=== PATIENT | female | born 1955 | race Caucasian/White ===

== ENCOUNTER 2025-02-21 13:32 | Outpatient (AMB) | payer MEDICARE, SELFPAY ==
[2025-02-21 13:41] VITALS: BMI 23.8
--- NOTE | 2025-02-21 13:41 | A.PHYSOV ---
Vital Signs 02/21/25 13:41 Height 5 ft 2 in Weight 130 lb BMI 23.8 Intake Visit Reasons: Wants injection but cancelled follow up Intake Note: Patient is a 70 year old female here for lower back pain. 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 The patient's last injection was in September and provided approximately 50% for four months . The patient has previously considered ablation but cited difficulty with scheduling appointments. The patient is currently experiencing pain and has an upcoming two-week trip to [place], for which pain control is desired. The pain returned suddenly after a prolonged period of relief. The patient has a history of an allergic reaction with generalized hives to a flu shot, for which the patient was treated with prednisone and tolerated it well. The patient denies being diabetic. Patient has failed conservative treatment by completing physical therapy. She has a pain level today of 6/10. Pain Description - Location: Low back - Quality: Described as arthritis pain, not nerve pain. - Chronicity: Chronic, with a recent flare-up after a period of relief. - Alleviating factors: Previous facet injections provided relief for four months. - Associated symptoms: Difficulty sleeping is a significant issue due to pain. Procedure: Bilateral L4-5, L5-S1 facet injection 10/22/2023 100% reduction of her pain Bilateral L4-5, L5-S1 facet injection 03/04/2024 50% reduction of her pain for four months [facility] Social History Alcohol intake: current Alcohol intake frequency: does not drink Patient Tobacco Use Status: Never used Tobacco Use of substances other than those prescribed or required for medical reasons: No Review of Systems Narrative Review of Systems - Musculoskeletal: Reports back pain from arthritis. - Neurological: Denies nerve pain. - Integumentary/Allergy: Reports a history of generalized hives following a flu shot. - Endocrine: Denies diabetes. - Psychiatric: Reports difficulty sleeping, which is a significant issue, and stress related to an upcoming trip. Physical Exam Exam Exam: Physical Exam -Lumbar Spine: Examination of her lumbar spine, there is no visible swelling or deformity. She is tender to lower lumbar facets. She is otherwise nontender. Full range of motion of the lumbar spine. She does have an increase in pain with facet loading. Special Tests: Lhermittes sign was negative Heel Toe walk is normal Left straight leg raise: Negative Right straight leg raise: Negative Special tests Barbara test is negative Ganslen's test is negative SI Joint compression test negative Ward test negative Piriformis stretch is negative Lower Extremities: Full range of motion bilateral lower extremities. No calf pain or edema. Neuro: Sensation: Intact to lower extremities bilaterally Strength L2 (Psoas): 5/5 on the left and 5/5 on the right. L3 (Quads): 5/5 on the left and 5/5 on the right. L4 (Ant tibialis): 5/5 on the left and 5/5 on the right. L5 (EHL) 5/5 on the left and 5/5 on the right. S1 (Gastroc): 5/5 on the left and 5/5 on the right. DTR L4: (Patellar) Left 2 Right 2 S1: (Achilles) Left 2 Right 2 Babinski Downgoing No pathologic clonus. No involuntary movement. Vital Signs: BMI result Body Mass Index 23.8 Assessment & Plan Assessment & Plan (1) Vertebrogenic low back pain: Code(s): M54.51 - Vertebrogenic low back pain Category: Medical (2) Lumbar spondylosis: Code(s): M47.816 - Spondylosis without myelopathy or radiculopathy, lumbar region Category: Medical Plan Pain Management - Analgesia: The last facet injection in September provided about four months of relief. - The patient is currently taking diclofenac and gabapentin for a pain flare-up. - A prednisone taper is planned for an upcoming trip. - Activities of Daily Living: The pain is causing difficulty with sleeping. - Affect: The patient reports stress related to managing pain during an upcoming trip. - Adverse Effects: The patient tolerates prednisone well, having taken it previously for hives. Plan Patient was informed and verbally consented to the use of an ambient scribe for clinic note documentation during this visit. 1. Chronic Low Back Pain The patient's chronic low back pain is secondary to arthritis, which previously responded well to facet injections. Given the current flare-up and upcoming travel, a short-term oral steroid course was discussed. A 21-day prednisone taper will be prescribed, starting at 60 mg, to manage pain during the trip. The patient was instructed to stop taking diclofenac while on prednisone. For long-term management, a repeat bilateral L4-5 and L5-S1 facet injection will be scheduled pending insurance approval. Today we discussed the risks, complications and benefits of injection and she is eager to proceed. 2. Insomnia Related To Medical Condition The patient reports significant issues with sleeping, which appear to be related to chronic back pain. Gabapentin 100 mg was discussed as an option to aid sleep. The patient was advised that two to three tablets can be taken at night as needed, which may also help with pain. This can be taken before and during the course of prednisone. Medications: New prednisone 3 pills po for 7 days, 2 pills po for 7 days, 1 pill po for 7 days 20 mg PO DAILY 21 tabs 0RF 21 days M47.816 - Spondylosis without myelopathy or radiculopathy, lumbar region, M54.51 - Vertebrogenic low back pain Coding Level of Care Code Tele Est Pt Level 4 (47295) Diagnoses Vertebrogenic low back pain M54.51 Lumbar spondylosis M47.816
--- OUTSIDE RECORDS SUMMARY | 2025-02-21 16:39 | XMS_ITS | Continuity of Care Document ---
Author Organization [place] - [facility], Allergy Address [address] [place] [address] Care Team Providers Care Manager Room Name Role Phone SIM NAN Primary Care Provider [phone] Assessment Encounter Date Assessment Date Assessment LastModified by Organization Details LastModified Time 02/16/2025 02/16/2025 Visit With: Dell Arriaga [place] Use of Antihistamine s: No If yes: Vial Test Change in medications: No If yes Increase in asthma symptoms No If yes, inhaler use: Reaction to last injections: No If yes: Allergy Symptoms: Other: Missed: 1 week Dose Aware of Vial Test Aware: Notes: Not available 02/16/2025 14:09:31 Plan of Treatment Reminders Order Date Submit Date Provider Last Modified By Organization Details Last Modified Time Details Appointments Allergy Shot 2024 02:00P M [facility] Not available Not available Not available Hearing Test 2025 01:30P M Hearing Test Not available Not available Not available [facility]- Allergy f-up 6mon 2025 02:00P M SATISH SHRESTHA Not available Not available Not available Lab None recorded . Referral None recorded . Procedures None recorded . Surgeries None recorded . Imaging None recorded . Medication Orders None recorded . Patient TargetsNo targets recorded. Patient InstructionsNo instructions recorded. Reason for Referral None Reported. Problems Name Problem SNOMED Code Status Onset Date Resolution Date Notes Provider Name and Address Organization Details Recorded Time Chronic rhinitis 87883493 Active 2023 GABRIELA PACHECO MD 100 [facility], [address], [place], [address] [facility] [place] [facility] [place] 4 10:59:27 Impacted cerumen of bilateral ears [id number] 108 Active 2023 GABRIELA PACHECO MD 100 [facility],[address], [place], [address], [place] [facility] [place] 4 10:59:44 Non-allergi c rhinitis 175300609495 Active 2023 GABRIELA PACHECO MD 100 [facility],[address], [place], [address], [place] [facility] 4 11:00:55 Abnormal auditory perception 26377816 Active 2023 GABRIELA PACHECO MD 100 [facility],[address], [place], [address], [place] [facility] [place] 4 11:01:38 Allergic rhinitis 86827313 Active 2023 FRANCESCA PYLE 100 [facility],[address], [place], [address], [place] [facility] [place] 4 13:03:02 Sensorineur al hearing loss of bilateral ears 657510875 Active 2023 ADA SPEARS 100 [facility],[address], [place], [address], [place] [facility] [place] 4 13:31:38 Feeling of lump in throat 915108715 Active 2023 GABRIELA PACHECO MD 100 [facility],[address], [place], [address], [place] [facility] [place] 4 14:05:35 Chronic sinusitis 76332864 Active 2023 GABRIELA PACHECO MD 100 [facility],[address], [place], [address], [place] [facility] 4 14:06:50 Perennial allergic rhinitis 447897923 Active 2024 Dell Bart [address], [place], [address], [place] [facility] 14:32:29 Problem Notes None recorded. Procedures Surgical History Date Name Laterality Status Provider Name and Address Organization Details Recorded Time 02/22/20 25 Allergy Immunotherapy Injections completed RIO CKC, RMA [address], [place], [address], [place] [facility] [place] 02/21/2025 14:56:06 02/17/20 25 Allergy Immunotherapy Injections completed Dell Bart [address], [place], [address], [place] [facility] 02/16/2025 14:09:07 02/03/20 25 Allergy Immunotherapy Injections completed RIO STOVERC, RMA 100 [facility],[address] [place] [address], [address], [place] [facility] 02/02/2025 14:27:51 01/27/20 25 Allergy Immunotherapy Injections completed ABELARDO SANTOS RN 100 [facility],[address]UD[address] [place] [address], [address], [place] [facility] [place] 01/26/2025 14:42:41 01/19/20 25 Allergy Immunotherapy Injections completed RIO STOVERC, RMA [address], [place], [address], [place] [facility] 01/18/2025 14:37:57 01/06/20 25 Allergy Immunotherapy Injections completed Dell Bart 100 [facility],[address], [place], [address], [place] [facility] 01/05/2025 14:32:42 12/30/19 25 Allergy Immunotherapy Injections completed RIO STOVERC, RMA [address] [place] [address], [address], [place] [facility] 12/29/2024 10:48:31 12/20/19 25 Allergy Immunotherapy Injections completed ABELARDO SANTOS RN 100 [facility],[address] [place] [address], [address], [place] [facility] 12/19/2024 13:44:08 12/15/19 25 Allergy Immunotherapy Injections completed RADHA THOMPSON, [facility] [address],UJDY [facility], [place], [address], [place] [facility] [place] 12/14/2024 14:20:22 12/07/19 25 Allergy Immunotherapy Injections completed RIO BRITO, RMA [address], [place], [address], [place] [facility] 12/06/2024 14:57:17 12/07/19 25 Fiberoptic Laryngoscopy (Comprehensive) completed GABRIELA LOMBARDO MD 100 [facility],[address], [address], [place] [facility] [place] 12/06/2024 13:31:06 12/01/19 25 Allergy Immunotherapy Injections completed RIO BRITO, RMA [address],JUD[address] [facility], [place], [address], [place] [facility] [place] 11/30/2024 15:11:48 11/23/19 25 Allergy Immunotherapy Injections completed Dell Bart [address] [facility],[address]UD[address] [facility], [place], [address], [place] [facility] [place] 11/22/2024 14:45:33 11/15/19 25 Allergy Immunotherapy Injections completed Dell Brat [address], [place], [address], [place] [facility] 11/14/2024 14:11:37 11/11/19 25 Allergy Immunotherapy Injections completed Dell Bart 100 [facility],[address], [place], [address], [place] [facility] 11/10/2024 13:36:45 11/04/19 25 Allergy Immunotherapy Injections completed Dell Bart [address] [facility],[address], [place], [address], [place] [facility] 11/03/2024 13:36:32 10/27/19 25 Allergy Immunotherapy Injections completed ABELARDO SANTOS RN 100 [facility],[address], [place], [address], [place] [facility] 10/26/2024 15:07:11 10/20/19 25 Allergy Immunotherapy Injections completed RIO KCC, RMA [address], [place], [address], [place] [facility] [place] 10/19/2024 14:22:48 10/04/19 25 Allergy Immunotherapy Injections completed RIO KORZEC, RMA [address], [place], [address], [place] [facility] 10/03/2024 15:03:51 09/28/19 25 Allergy Immunotherapy Injections completed RIO CRISZEC, RMA [address], [place], [address], [place] [facility] 09/27/2024 14:25:48 09/22/19 25 Allergy Immunotherapy Injections completed RADHA THOMPSON, RMA [address], [place], [address], [place] [facility] 09/21/2024 15:30:42 09/14/19 25 Allergy Immunotherapy Injections completed RIO STOVERC, RMA [address], [place], [address], [place] [facility] 09/13/2024 14:01:19 09/07/19 25 Allergy Immunotherapy Injections completed ABELARDO SANTOS RN [address], [place], [address], [place] [facility] 09/06/2024 13:56:06 09/02/19 25 Allergy Immunotherapy Injections completed RIO STOVERC, RMA [address], [place], [address], [place] [facility] 09/01/2024 14:45:17 08/26/19 25 Allergy Immunotherapy Injections completed RIO KORZEC, RMA [address], [place], [address], [place] [facility] 08/25/2024 13:32:12 08/18/19 25 Allergy Immunotherapy Injections completed RADHA THOMPSON RMA [address], [place], [address], [place] [facility] 08/17/2024 13:36:56 08/12/19 25 Allergy Immunotherapy Injections completed ABELARDO SANTOS RN [address], [place], [address], [place] [facility] 08/11/2024 13:47:58 08/02/19 25 Allergy Immunotherapy Injections completed ABELARDO SANTOS RN [address], [place], [address], [place] [facility] 08/01/2024 14:50:37 07/29/19 25 Allergy Immunotherapy Injections completed ABELARDO SANTOS RN [address], [place], [address], [place] [facility] 07/28/2024 14:17:25 07/21/19 25 Allergy Immunotherapy Injections completed FRANCESCA PYLE [address], [place], [address], [place] [facility] 07/20/2024 14:39:33 07/14/19 25 Allergy Immunotherapy Injections completed ABELARDO SANTOS RN [address], [place], [address], [place] [facility] 07/13/2024 14:36:25 07/06/19 25 Allergy Immunotherapy Injections completed ABELARDO SANTOS RN [address], [place], [address], [place] [facility] 07/05/2024 14:04:57 06/30/19 25 Allergy Immunotherapy Injections completed FRANCESCA ROCHA [address], [place], [address], [place] [facility] 06/29/2024 14:43:49 06/16/19 25 Allergy Immunotherapy Injections completed RIO BRITO RMA [address], [place], [address], [place] [facility] 06/15/2024 14:25:11 06/10/19 25 Allergy Immunotherapy Injections completed RIO BRITO RMAlma [address], [place], [address], [place] [facility] [place] 06/09/2024 14:22:07 05/31/19 25 Allergy Immunotherapy Injections completed RIO BRITO RMA 100 [facility],[address], [address], [place] [facility] 05/30/2024 15:43:04 05/25/19 25 Allergy Immunotherapy Injections completed RADHA THOMPSON A 100 [facility],[address], [address], [place] [facility] [place] 05/25/2024 14:21:31 05/11/19 25 Allergy Immunotherapy Injections completed RIO BRITO RMA 100 [facility],[address], [address], [place] [facility] 05/11/2024 15:28:00 05/05/19 25 Allergy Immunotherapy Injections completed FRANCESCA PYLE 100 [facility],[address], [address], [place] [facility] 05/05/2024 14:11:35 04/28/19 25 Allergy Immunotherapy Injections completed FRANCESCA PYLE 100 [facility],[address], [address], [place] [facility] 04/28/2024 13:25:07 04/17/19 25 Allergy Immunotherapy Injections completed ABELARDO SANTOS RN 100 [facility],[address], [address], [place] [facility] 04/17/2024 15:10:42 03/15/20 24 Comp Audio with Tymps - 92476 & 32600 completed ADA SPEARS 100 [facility],[address], [address], [place] [facility] 03/15/2024 13:31:32 03/15/20 24 Fiberoptic Laryngoscopy (Comprehensive) completed GABRIELA LOMBARDO MD 100 [facility],[address], [address], [facility] - [facility] [place] 03/15/2024 14:04:46 12/13/19 24 Allergy Testing-Full completed FRANCESCA PYLE [address], [address], [facility] - [facility] 12/13/2023 14:11:35 tonsillectomy completed GABRIELA LOMBARDO MD [address], [address], [facility] 11/26/2023 10:54:51 facial rhytidoplasty completed GABRIELA LOMBARDO MD 100 [facility],[address], [address], [facility] - [facility] 11/26/2023 10:58:58 Imaging Results None recorded. Procedure Notes None recorded. Medical Equipment None Reported. Allergies Allergen ID Allergen Name Allergen Category Reaction Reaction Severity Criticality Documentation Date Start Date Code Code System Note Provider Name and Address Organization Details Recorded Time 221031 Bactrim medicatio n other mild Not available 12/13/2023 65240 9 RxNorm FRANCESCA PYLE 100 [facility] 100[place], [place], [address], [facility] 4 13:07:20 666910 Product containin g penicilli n (product) medicatio n Not available Not available Not available 02/16/2025 65917 8001 SNOMED Not Available [employer] - prod 13:58:50 845400 sulfameth oxazole / trimethop rim medicatio n Not available Not available Not available 02/16/2025 95400 RxNorm Not Available [employer] - prod 5 13:58:50 Medications Name Sig Start Date Stop Date Status Note LastModified by Organization Details LastModified Time fluoxetine 40 mg capsule TAKE 1 CAPSULE BY MOUTH TWICE DAILY active Not Available Not Available No t Available doxycycline hyclate 100 mg capsule TAKE 1 CAPSULE BY MOUTH TWICE DAILY FOR 7 DAYS 04/13 completed Not Available Not Available Not Available ibuprofen 800 mg tablet TAKE 1 TABLET BY MOUTH EVERY 8 HOURS NEEDED FOR PAIN 04/17 completed Not Available Not Available Not Available tizanidine 4 mg tablet TAKE 1 TABLET BY MOUTH THREE TIMES DAILY 04/17 completed Not Available Not Available Not Available fluconazole 150 mg tablet TAKE 1 TABLET BY MOUTH DAILY FOR 1 DAY 11/25 completed Not Available Not Available Not Available prednisone 20 mg tablet 11/25 completed Not Available Not Available Not Available Levoxyl 75 mcg tablet TAKE 1 TABLET BY MOUTH EVERY DAY active Not Available Not Available No t Available clindamycin HCl 150 mg capsule TAKE 1 CAPSULE BY MOUTH EVERY 6 HOURS UNTIL FINISHED 04/17 completed Not Available Not Available Not Available acetaminoph en 300 mg-codeine 30 mg tablet TAKE 1 TABLET BY MOUTH EVERY 8 HOURS NEEDED FOR PAIN 04/17 completed Not Available Not Available Not Available simvastatin 40 mg tablet TAKE 1 TABLET BY MOUTH EVERY DAY active Not Available Not Available No t Available levothyroxi ne 100 mcg tablet TAKE 1 TABLET BY MOUTH DAILY 11/25 completed Not Available Not Available Not Available levothyroxi ne 88 mcg tablet TAKE 1 TABLET BY MOUTH DAILY 11/25 completed Not Available Not Available Not Available phenazopyri dine 100 mg tablet 12/12 completed Not Available Not Available Not Available dexamethaso ne 4 mg tablet TAKE 1 TABLET BY MOUTH TWICE DAILY FOR 5 DAYS 04/17 completed Not Available Not Available Not Available betamethaso ne dipropionat e 0.05 % topical cream APPLY EXTERNALL Y ON THE ITCHY AREAS TWICE DAILY FOR 10 DAYS 11/25 completed Not Available Not Available Not Available diclofenac sodium 75 mg tablet,eli yed release TAKE 1 TABLET BY MOUTH TWICE A DAY NEEDED FOR PAIN. active Not Available Not Available No t Available montelukast 10 mg tablet TAKE 1 TABLET BY MOUTH AT BEDTIME 11/25 completed Not Available Not Available Not Available zolpidem 5 mg tablet 04/17 completed Not Available Not Available Not Available gabapentin 100 mg capsule TAKE 1 CAPSULE BY MOUTH THREE TIMES DAILY. MAY INCREASE TO 3 CAPSULES 3 TIMES DAILY OVER 10 DAYS TOLERATED 11/25 completed Not Available Not Available Not Available azelastine 137 mcg (0.1 %) nasal spray [facility] 2 sprays twice a day by intranasa l route for 30 days. 2024 active Not Available Not Available Not Avai lable epinephrine 0.3 mg/0.3 mL injection, auto-inject or INJECT INTO THE SKIN NEEDED FOR ANAPHALAX IS CALL 911 IMMEDIATE LY active Not Available Not Available No t Available zolpidem 10 mg tablet TAKE 1 TABLET BY MOUTH AT BEDTIME NEEDED FOR INSOMNIA active Not Available Not Available No t Available fluticasone propionate 50 mcg/actuati on nasal spray,suspe nsion SHAKE LIQUID AND USE 2 SPRAYS IN EACH NOSTRIL DAILY active Not Available Not Available No t Available ipratropium bromide 21 mcg (0.03 %) nasal spray USE 2 SPRAYS IN EACH NOSTRIL THREE TIMES DAILY 03/15 completed Not Available Not Available Not Available phentermine 37.5 mg capsule TAKE 1 CAPSULE BY MOUTH EVERY MORNING 11/25 completed Not Available Not Available Not Available eletriptan 40 mg tablet TAKE 1 TABLET BY MOUTH NEEDED FOR HEADACHES FOR 30 DAYS. MAY REPEAT IN 2 HOURS IF NECESSARY active Not Available Not Available No t Available nitrofurant oin monohydrate /macrocryst als 100 mg capsule TAKE 1 CAPSULE BY MOUTH EVERY 12 HOURS FOR 5 DAYS 11/25 completed Not Available Not Available Not Available chlorhexidi ne gluconate 0.12 % mouthwash 04/13 completed Not Available Not Available Not Available Vitals None Recorded Social History None recorded. Functional Status None recorded. Mental Status None recorded. Family History Nothing Reported. Medical History Condition Response Migraines Y Thyroid Problems Y High Cholesterol Y Gynecological HistoryNo gynecological history recorded. Obstetrics History GPAL:G 0 P 0 0 0 0 Past Encounters Encounter ID Performer Location Encounter Start Date Encounter Closed Date Diagnosis/Indication Diagnosis SNOMED-CT Code Diagnosis ICD10 Code Diagnosis IMO Codes Diagnosis Note [id number] RIO CK A Allergy 100 [facility] [address] [place] [address] 01/18/2025 14:24:44 01/18/2025 14:39:46 Perennial allergic rhinitis 047312279 J30.89 [id number] RADHA THOMPSON A Allergy 100 [facility], [address] [place] [address] 01/26/2025 14:09:54 01/26/2025 14:43:09 Perennial allergic rhinitis 857502558 J30.89 [id number] RIO STOVER RMA Allergy 100 [facility],[place] [address] [place] [address] 02/02/2025 14:10:57 02/02/2025 14:29:05 Perennial allergic rhinitis 435177290 J30.89 [id number] Dell Bart Allergy [address] [place] [address] [facility] [place] [address] 02/16/2025 13:58:16 02/16/2025 14:09:48 Perennial allergic rhinitis 472966813 J30.89 Health Concerns Section Related Observation LastModified by Organization Detai ls LastModified Time None Recorded Concern Status LastModified by Organization Details LastModified Time None Recorded Payers Encounter Date Sequence Insurance Name Policy Number Policy Jaramillo Covered Member ID Jaramillo Member ID Guarantor Name 02/16/2025 1 [place] [employer] Joceline Estes [id number] Joceline Estes 02/16/2025 2 [facility] [facility] [id number] Joceline Estes [id number] Joceline Estes OBGyn Episode No OBEpisode recorded.
--- OUTSIDE RECORDS SUMMARY | 2025-02-21 16:39 | XMS_ITS | Continuity of Care Document ---
Author Organization [place] - [facility], Allergy Address [address] [place] [id number] Care Team Providers Care Internal Audit Senior Manager Name Role Phone SIM ANN Primary Care Provider Assessment Encounter Date Assessment Date Assessment LastModified by Organization Details LastModified Time 02/02/2025 02/02/2025 Visit With: FRANCESCA Ozuna Use of Antihistamine s: No If yes: Vial Test Change in medications: No If yes Increase in asthma symptoms If yes, inhaler use: Reaction to last injections: No If yes: Allergy Symptoms: Other: Missed: Dose Aware of Vial Test Aware: Notes: [email or web address] Not available 02/02/2025 14:28:44 Plan of Treatment Reminders Order Date Submit Date Provider Last Modified By Organization Details Last Modified Time Details Appointments Allergy Shot 2024 02:00P [facility] Not available Not available Not available Hearing Test 2025 01:30P M Hearing Test Not available Not available Not available [facility] All[facility] f-up 6mon 2025 02:00P M SATISH [...] Address Organization Details Recorded Time Chronic rhinitis 41924754 Active 2023 GABRIELA PACHECO MD 100 [facility] 100, [place], [address], [place] - [facility] 4 10:59:27 Impacted cerumen of bilateral ears [id number] 108 Active 2023 GABRIELA PACHECO MD 100 [facility], [address] 100, [employer], [address], [place] [facility] 4 10:59:44 Non-allergi c rhinitis [id number] Active 2023 GABRIELA PACHECO MD 100 [facility], [address], [employer], [address], [place] [facility] 4 11:00:55 Abnormal auditory perception 41727459 Active 2023 GABRIELA PACHECO MD 100 [facility], [address], [employer], [address], [place] [facility] 4 11:01:38 Allergic rhinitis 72663878 Active 2023 FRANCESCA PYLE 100 [facility], [address], [employer], [address], [place] [facility] 4 13:03:02 Sensorineur al hearing loss of bilateral ears 023528233 Active 2023 ADA SPEARS 100 [facility],[address], [employer], [address], [place] [facility] 4 13:31:38 Feeling of lump in throat 153689450 Active 2023 GABRIELA PACHECO MD 100 [facility], [address], [employer], [address], [place] [facility] 4 14:05:35 Chronic sinusitis 34205625 Active 2023 GABRIELA PACHECO MD 100 [facility],[address], [employer], [address], [place] [facility] 4 14:06:50 Perennial allergic rhinitis 450890128 Active 2024 Dell Bart [address], [place], [address], [place] [facility] 14:32:29 Problem Notes None recorded. Procedures Surgical History Date Name Laterality Status Provider Name and Address Organization Details Recorded Time 02/22/20 25 Allergy Immunotherapy Injections completed RIO CKC, RMA [address] [facility], [place], [address], [place] [facility] 02/21/2025 14:56:06 02/17/20 25 Allergy Immunotherapy Injections completed Dell Bart [address] [facility], [place], [address], [place] [facility] 02/16/2025 14:09:07 02/03/20 25 Allergy Immunotherapy Injections completed RIO STOVERC, RMA 100 [facility],[address], [address], [place] [facility] 02/02/2025 14:27:51 01/27/20 25 Allergy Immunotherapy Injections completed ABELARDO SANTOS RN 100 [facility],[address], [address], [place] [facility] 01/26/2025 14:42:41 01/19/20 25 Allergy Immunotherapy Injections completed RIO STOVERC, RMA [address] [place] [address], [address], [place] [facility] 01/18/2025 14:37:57 01/06/20 25 Allergy Immunotherapy Injections completed Dell Chavarriaos 100 [facility] [address] [facility], [place], [address], [place] [facility] 01/05/2025 14:32:42 12/30/19 25 Allergy Immunotherapy Injections completed RIO STOVERC, RMA [address] [facility],[address] [place] [address], [address], [place] [facility] 12/29/2024 10:48:31 12/20/19 25 Allergy Immunotherapy Injections completed ABELARDO SANTOS RN 100 [facility],JUDY [address] [place] [address], [address], [place] [facility] 12/19/2024 13:44:08 12/15/19 25 Allergy Immunotherapy Injections completed RADHA THOMPSON, A [address], [place], [address], [place] [facility] 12/14/2024 14:20:22 12/07/19 25 Allergy Immunotherapy Injections completed RIO BRITO, RMA [address], [place], [address], [place] [facility] 12/06/2024 14:57:17 12/07/19 25 Fiberoptic Laryngoscopy (Comprehensive) completed GABRIELA LOMBARDO MD 100 [facility],[address] [facility], [place], [address], [place] [facility] 12/06/2024 13:31:06 12/01/19 25 Allergy Immunotherapy Injections completed RIO BRITO, RMA [address] [facility], [place], [address], [place] [facility] 11/30/2024 15:11:48 11/23/19 25 Allergy Immunotherapy Injections completed Dell Bart [address] [facility],[address] [facility], [place], [address], [place] [facility] 11/22/2024 14:45:33 11/15/19 25 Allergy Immunotherapy Injections completed Dell Bart [address], [place], [address], [place] [facility] 11/14/2024 14:11:37 11/11/19 25 Allergy Immunotherapy Injections completed Dell Bart 100 [facility],[address], [place], [address], [place] [facility] 11/10/2024 13:36:45 11/04/19 25 Allergy Immunotherapy Injections completed Dell Bart 100 [facility],[address], [place], [address], [place] [facility] 11/03/2024 13:36:32 10/27/19 25 Allergy Immunotherapy Injections completed ABELARDO SANTOS RN [address] [facility], [place], [address], [place] [facility] 10/26/2024 15:07:11 10/20/19 25 Allergy Immunotherapy Injections completed RIO CRISLILIANAC, RMA [address], [place], [address], [place] [facility] 10/19/2024 14:22:48 10/04/19 25 Allergy Immunotherapy Injections completed RIO KORZEC, RMA [address], [place], [address], [place] [facility] 10/03/2024 15:03:51 09/28/19 25 Allergy Immunotherapy Injections completed RIO CRISZEC, RMA [address], [place], [address], [place] [facility] 09/27/2024 14:25:48 09/22/19 25 Allergy Immunotherapy Injections completed RADHA THOMPSON, RMA [address], [place], [address], [place] [facility] 09/21/2024 15:30:42 09/14/19 25 Allergy Immunotherapy Injections completed RIO STOVERC, RMA [address], [place], [address], [place] [facility] 09/13/2024 14:01:19 09/07/19 25 Allergy Immunotherapy Injections completed ABELARDO SANTOS RN [address], [place], [address], [place] [facility] 09/06/2024 13:56:06 09/02/19 25 Allergy Immunotherapy Injections completed RIO STOVERC, RMA [address], [place], [address], [place] [facility] 09/01/2024 14:45:17 08/26/19 25 Allergy Immunotherapy Injections completed RIO KORZEC, RMA [address], [place], [address], [place] [facility] 08/25/2024 13:32:12 08/18/19 25 Allergy Immunotherapy Injections completed RADHA THOMPSON RMA [address] 100, [place], [address], [place] [facility] 08/17/2024 13:36:56 08/12/19 25 Allergy Immunotherapy Injections completed ABELARDO SANTOS RN [address] [place] [address], [address], [place] [facility] 08/11/2024 13:47:58 08/02/19 25 Allergy Immunotherapy Injections completed ABELARDO SANTOS RN [address] 100, [place], [address], [place] [facility] 08/01/2024 14:50:37 07/29/19 25 Allergy Immunotherapy Injections completed ABELARDO SANTOS RN [address] [facility], [place], [address], [place] [facility] 07/28/2024 14:17:25 07/21/19 25 Allergy Immunotherapy Injections completed FRANCESCA PYLE [address] 100, [place], [address], [place] [facility] 07/20/2024 14:39:33 07/14/19 25 Allergy Immunotherapy Injections completed ABELARDO SANTOS RN [address] [facility] [place] [address], [address], [place] [facility] 07/13/2024 14:36:25 07/06/19 25 Allergy Immunotherapy Injections completed ABELRADO SANTOS RN [address] [facility], [place], [address], [place] [facility] 07/05/2024 14:04:57 06/30/19 25 Allergy Immunotherapy Injections completed FRANCESCA OZUNA [address], [place], [address], [place] [facility] 06/29/2024 14:43:49 06/16/19 25 Allergy Immunotherapy Injections completed RIO BRITO RMAlma [address], [place], [address], [place] [facility] 06/15/2024 14:25:11 06/10/19 25 Allergy Immunotherapy Injections completed RIO BRITO RMAlma [address], [place], [address], [place] [facility] 06/09/2024 14:22:07 05/31/19 25 Allergy Immunotherapy Injections completed RIO BRITO RMA 100 [facility],[address], [address], [place] [facility] 05/30/2024 15:43:04 05/25/19 25 Allergy Immunotherapy Injections completed RADHA THOMPSON RMA 100 [facility],[address], [address], [place] [facility] 05/25/2024 14:21:31 05/11/19 25 Allergy Immunotherapy Injections completed RIO BRITO RMA 100 [facility],[address], [address], [place] [facility] 05/11/2024 15:28:00 05/05/19 25 Allergy Immunotherapy Injections completed FRANCESCA PYLE 100 [facility],[address], [address], [place] [facility] 05/05/2024 14:11:35 04/28/19 25 Allergy Immunotherapy Injections completed FRANCESCA PYLE 100 [facility],[address], [address], [place] [facility] 04/28/2024 13:25:07 04/17/19 25 Allergy Immunotherapy Injections completed ABELARDO SANTOS RN 100 [facility],[address], [address], [place] [facility] 04/17/2024 15:10:42 03/15/20 24 Comp Audio with Tymps - 24401 & 80720 completed ADA SPEARS 100 [facility],[address], [address], [place] [facility] 03/15/2024 13:31:32 03/15/20 24 Fiberoptic Laryngoscopy (Comprehensive) completed GABRIELA LOMBARDO MD 100 [facility],[address], [address], [facility] - [facility] 03/15/2024 14:04:46 12/13/19 24 Allergy Testing-Full completed FRANCESCA PYLE [address] [facility], [address], [facility] 12/13/2023 14:11:35 tonsillectomy completed GABRIELA LOMBARDO MD [address], [address], [facility] 11/26/2023 10:54:51 facial rhytidoplasty completed GABRIELA LOMBARDO MD [address], [address], [facility] - [facility] 11/26/2023 10:58:58 Imaging Results None recorded. Procedure Notes None recorded. Medical Equipment None Reported. Allergies Allergen ID Allergen Name Allergen Category Reaction Reaction Severity Criticality Documentation Date Start Date Code Code System Note Provider Name and Address Organization Details Recorded Time 771617 Bactrim medicatio n other mild Not available 12/13/2023 15965 9 RxNorm FRANCESCA PYLE [address], [address], [facility] 4 13:07:20 843208 Product containin g penicilli n (product) medicatio n Not available Not available Not available 02/16/2025 46914 8001 SNOMED Not Available [employer] - prod 13:58:50 357662 sulfameth oxazole / trimethop rim medicatio n Not available Not available Not available 02/16/2025 92051 RxNorm Not Available [employer] - prod 13:58:50 Medications Name Sig Start Date Stop [...] azelastine 137 mcg (0.1 %) nasal spray Strum 2 sprays twice a day by intranasa [...] ICD10 Code Diagnosis IMO Codes Diagnosis Note [id number] RADHA THOMPSON [facility] Allergy [address] [facility], [address] [place] [address] 01/05/2025 14:19:33 01/05/2025 14:33:10 Perennial allergic rhinitis 286799176 J30.89 94610 [facility] A Allergy 100 [facility] [place] [address] 01/18/2025 14:24:44 01/18/2025 14:39:46 Perennial allergic rhinitis 994377990 J30.89 78660 RADHA THOMPSON A Allergy 100 [facility],[address] [place] [address] 01/26/2025 14:09:54 01/26/2025 14:43:09 Perennial allergic rhinitis 031300427 J30.89 25803 RIO STOVER, RMA Allergy 100 [facility] 100 [facility] [place] [address] 02/02/2025 14:10:57 02/02/2025 14:29:05 Perennial allergic rhinitis [id number] J30.89 Health Concerns Section Related Observation LastModified by Organization Detai ls LastModified Time None Recorded Concern Status LastModified by Organization Details LastModified Time None Recorded Payers Encounter Date Sequence Insurance Name Policy Number Policy Jaramillo Covered Member ID Jaramillo Member ID Guarantor Name 02/02/2025 1 [place] [employer] Joceline Estes [id number] Joceline Estes 02/02/2025 2 [facility] [facility] [id number] Joceline Estes [id number] Joceline Estes OBGyn Episode No OBEpisode recorded.
--- OUTSIDE RECORDS SUMMARY | 2025-02-21 16:39 | XMS_ITS | Continuity of Care Document ---
Author Organization [place] - [facility], Allergy Address [address] [place] [address] Care Team Providers Care Hearing Screener Name Role Phone SIM ANN Primary Care Provider [phone] Assessment Encounter Date Assessment Date Assessment LastModified by Organization Details LastModified Time 12/06/2024 12/06/2024 Visit With: Shruthi Wahl Use of Antihistamine s: No If yes: Vial Test Change in medications: No If yes Increase in asthma symptoms If yes, inhaler use: Reaction to last injections: No If yes: Allergy Symptoms: Other: Missed: Dose Aware of Vial Test Yes Aware: Notes: [email or web address] Not available 12/06/2024 14:57:26 Plan of Treatment Reminders Order Date Submit Date Provider Last Modified By Organization Details Last Modified Time Details Appointments Allergy Shot 2024 02:00P M [facility] Not available Not available Not available Hearing Test 2025 01:30P M Hearing Test Not available Not available Not available Lisa hed- Allergy f-up 6mon 2025 02:00P M [...] Address Organization Details Recorded Time Chronic rhinitis 60774821 Active 2023 GABRIELA PACHECO MD 100 [facility] 100, [place], [address], [place] [facility] 4 10:59:27 Impacted cerumen of bilateral ears [id number] 108 Active 2023 GABRIELA PACHECO MD 100 [facility],[place] [address], [place], [address], [facility] - [facility] [place] 4 10:59:44 Non-allergi c rhinitis 639906939530 Active 2023 GABRIELA PACHECO MD 100 [facility] E [facility], [place], [address], [facility] - [facility] [place] 4 11:00:55 Abnormal auditory perception 07612337 Active 2023 GABRIELA PACHECO MD 100 [facility] E [facility], [place], [address], [facility] - [facility] [place] 4 11:01:38 Allergic rhinitis 87052084 Active 2023 FRANCESCA PYLE 100 [facility], E [facility], [place], [address], [facility] - [facility] [place] 4 13:03:02 Sensorineur al hearing loss of bilateral ears 978117556 Active 2023 ADA SPEARS 100 [facility], [address] 100, [facility] [place], [address], [facility] - [facility] [place] 4 13:31:38 Feeling of lump in throat 949921630 Active 2023 GABRIELA PACHECO MD 100 [facility], [address] 100, [place], [address], [facility] - [facility] [place] 4 14:05:35 Chronic sinusitis 54479920 Active 2023 GABRIELA PACHECO MD 100 [facility], [address], [place], [address], [facility] - [facility] [place] 4 14:06:50 Perennial allergic rhinitis 343281940 Active 2024 Dell Bart [address] [place], [place], [address], [place] [facility] [place] 14:32:29 Problem Notes None recorded. Procedures Surgical History Date Name Laterality Status Provider Name and Address Organization Details Recorded Time 02/22/20 25 Allergy Immunotherapy Injections completed RIO CKC, RMA [address] [facility], [place], [address], [place] [facility] [place] 02/21/2025 14:56:06 02/17/20 25 Allergy Immunotherapy Injections completed Dell Bart 100 [facility] [place],[address], [place], [address], [place] [facility] [place] 02/16/2025 14:09:07 02/03/20 25 Allergy Immunotherapy Injections completed RIO STOVERC, RMA 100 [facility] [place],[address], [address], [place] [facility] 02/02/2025 14:27:51 01/27/20 25 Allergy Immunotherapy Injections completed ABELARDO SANTOS RN 100 [facility],[address], [address], [place] [facility] [place] 01/26/2025 14:42:41 01/19/20 25 Allergy Immunotherapy Injections completed RIO BRITO, RMA 100 [facility] [place],[address] [place] [address], [address], [facility] - [facility] 01/18/2025 14:37:57 01/06/20 25 Allergy Immunotherapy Injections completed Dell Chavarriaos 100 [facility],[address] [place] [address], [address], [facility] - [facility] [place] 01/05/2025 14:32:42 12/30/19 25 Allergy Immunotherapy Injections completed RIO STOVERC, RMA 100 [facility] [place],[address] [place] [address], [address], [facility] - [facility] 12/29/2024 10:48:31 12/20/19 25 Allergy Immunotherapy Injections completed ABELARDO SANTOS RN 100 [facility],[address] [place] [address], [address], [place] [facility] 12/19/2024 13:44:08 12/15/19 25 Allergy Immunotherapy Injections completed SHRUTHI WAHL, RMA [address] [facility] [address], [place], [address], [place] [facility] [place] 12/14/2024 14:20:22 12/07/19 25 Allergy Immunotherapy Injections completed RIO BRITO, RMA [address] [facility] [address], [place], [address], [place] [facility] [place] 12/06/2024 14:57:17 12/07/19 25 Fiberoptic Laryngoscopy (Comprehensive) completed GABRIELA LOMBARDO MD [address] [facility] [address], [place], [address], [place] [facility] [place] 12/06/2024 13:31:06 12/01/19 25 Allergy Immunotherapy Injections completed RIO BRITO, RMA [address] [facility], [place], [address], [place] [facility] [place] 11/30/2024 15:11:48 11/23/19 25 Allergy Immunotherapy Injections completed Dell Bart 100 [facility] [place],[address], [place], [address], [place] [facility] [place] 11/22/2024 14:45:33 11/15/19 25 Allergy Immunotherapy Injections completed Dell Bart [address] [facility] [address], [place], [address], [place] [facility] [place] 11/14/2024 14:11:37 11/11/19 25 Allergy Immunotherapy Injections completed Dell Bart 100 [facility] [place],[address], [place], [address], [place] [facility] [place] 11/10/2024 13:36:45 11/04/19 25 Allergy Immunotherapy Injections completed Dell Bart 100 [facility] [place],[address], [place], [address], [place] [facility] [place] 11/03/2024 13:36:32 10/27/19 25 Allergy Immunotherapy Injections completed ABELARDO SANTOS RN [address] [facility], [place], [address], [place] [facility] 10/26/2024 15:07:11 10/20/19 25 Allergy Immunotherapy Injections completed RIO CRISZEC, RMA [address], [place], [address], [place] [facility] [place] 10/19/2024 14:22:48 10/04/19 25 Allergy Immunotherapy Injections completed RIO KORZEC, RMA [address], [place], [address], [place] [facility] [place] 10/03/2024 15:03:51 09/28/19 25 Allergy Immunotherapy Injections completed RIO CRISZEC, RMA [address], [place], [address], [place] [facility] 09/27/2024 14:25:48 09/22/19 25 Allergy Immunotherapy Injections completed SHRUTHI WAHL, RMA [address], [place], [address], [place] [facility] 09/21/2024 15:30:42 09/14/19 25 Allergy Immunotherapy Injections completed RIO CRISZEC, RMA [address], [place], [address], [place] [facility] 09/13/2024 14:01:19 09/07/19 25 Allergy Immunotherapy Injections completed ABELARDO SANTOS RN [address], [place], [address], [place] [facility] 09/06/2024 13:56:06 09/02/19 25 Allergy Immunotherapy Injections completed RIO CRISZEC, RMA [address], [place], [address], [place] [facility] 09/01/2024 14:45:17 08/26/19 25 Allergy Immunotherapy Injections completed RIO KORZEC, RMA [address], [place], [address], [place] [facility] 08/25/2024 13:32:12 08/18/19 25 Allergy Immunotherapy Injections completed SHRUTHI WAHL RMA [address], [place], [address], [place] [facility] 08/17/2024 13:36:56 08/12/19 25 Allergy Immunotherapy Injections completed ABELARDO SANTOS RN [address], [place], [address], [place] [facility] 08/11/2024 13:47:58 08/02/19 25 Allergy Immunotherapy Injections completed ABELARDO SANTOS RN [address], [place], [address], [place] [facility] 08/01/2024 14:50:37 07/29/19 25 Allergy Immunotherapy Injections completed ABELARDO SANTOS RN [address], [place], [address], [place] [facility] 07/28/2024 14:17:25 07/21/19 25 Allergy Immunotherapy Injections completed FRANCESCA PYLE [address] [facility], [place], [address], [place] [facility] 07/20/2024 14:39:33 07/14/19 25 Allergy Immunotherapy Injections completed ABELARDO SANTOS RN [address] [facility] [facility], [place], [address], [place] [facility] 07/13/2024 14:36:25 07/06/19 25 Allergy Immunotherapy Injections completed ABELARDO SANTOS RN [address] [facility] [place] [address], [address], [place] [facility] [place] 07/05/2024 14:04:57 06/30/19 25 Allergy Immunotherapy Injections completed RIO BRITO RMAlma [address], [place], [address], [place] [facility] 06/29/2024 14:43:49 06/16/19 25 Allergy Immunotherapy Injections completed RIO BRITO RMAlma [address], [place], [address], [place] [facility] [place] 06/15/2024 14:25:11 06/10/19 25 Allergy Immunotherapy Injections completed RIO BRITO RMAlma [address], [place], [address], [place] [facility] [place] 06/09/2024 14:22:07 05/31/19 25 Allergy Immunotherapy Injections completed RIO BRITO, RMA 100 [facility] [place],[address], [address], [place] [facility] [place] 05/30/2024 15:43:04 05/25/19 25 Allergy Immunotherapy Injections completed SHRUTHI WAHL RMA 100 [facility],[address], [address], [place] [facility] [place] 05/25/2024 14:21:31 05/11/19 25 Allergy Immunotherapy Injections completed RIO BRITO RMA 100 [facility],[address], [address], [place] [facility] 05/11/2024 15:28:00 05/05/19 25 Allergy Immunotherapy Injections completed FRANCESCA PYLE 100 [facility],[address], [address], [place] [facility] 05/05/2024 14:11:35 04/28/19 25 Allergy Immunotherapy Injections completed FRANCESCA PYLE 100 [facility],[address], [address], [place] [facility] 04/28/2024 13:25:07 04/17/19 25 Allergy Immunotherapy Injections completed ABELARDO SANTOS RN 100 [facility],[address], [address], [place] [facility] 04/17/2024 15:10:42 03/15/20 24 Comp Audio with Tymps - 73004 & [address]2960 completed ADA SPEARS 100 [facility],[address], [address], [place] [facility] 03/15/2024 13:31:32 03/15/20 24 Fiberoptic Laryngoscopy (Comprehensive) completed GABRIELA LOMBARDO MD 100 [facility],[address], [address], [facility] - [facility] [place] 03/15/2024 14:04:46 12/13/19 24 Allergy Testing-Full completed FRANCESCA PYLE 100 [facility],[address], [address], [facility] - [facility] 12/13/2023 14:11:35 tonsillectomy completed GABRIELA LOMBARDO MD 100 [facility],[address], [address], [facility] 11/26/2023 10:54:51 facial rhytidoplasty completed GABRIELA LOMBARDO MD 100 [facility],[address], [address], [facility] - [facility] 11/26/2023 10:58:58 Imaging Results None recorded. Procedure Notes None recorded. Medical Equipment None Reported. Allergies Allergen ID Allergen Name Allergen Category Reaction Reaction Severity Criticality Documentation Date Start Date Code Code System Note Provider Name and Address Organization Details Recorded Time 737685 Bactrim medicatio n other mild Not available 12/13/2023 94573 9 RxNorm FRANCESCA PYLE 100 [facility] 100, [place], [address], [facility] 13:07:20 572695 Product containin g penicilli n (product) medicatio n Not available Not available Not available 02/16/2025 08735 8001 SNOMED Not Available [employer] - prod 5 13:58:50 560969 sulfameth oxazole / trimethop rim medicatio n Not available Not available Not available 02/16/2025 34672 RxNorm Not Available [employer] - prod 13:58:50 Medications [...] azelastine 137 mcg (0.1 %) nasal spray [place] 2 sprays twice a day by intranasa [...] ICD10 Code Diagnosis IMO Codes Diagnosis Note [id number] ABELARDO SANTOS RN Allergy [address] [place] [address] [address] [place] [address] 11/10/2024 13:20:20 11/10/2024 13:37:29 Perennial allergic rhinitis 777825309 J30.89 [id number] ABELARDO SANTOS RN Allergy [address] [place] [address], ite 100 [place] [address] 11/14/2024 13:26:34 11/14/2024 14:12:17 Perennial allergic rhinitis 516481230 J30.89 [id number] FRANCESCA PYLE Allergy 100 [facility],[place] it[address] 100 [place] [address] 11/22/2024 14:35:11 11/22/2024 14:46:12 Perennial allergic rhinitis 338649825 J30.89 [id number] RIO BRITO, [facility] Allergy 100 [facility] 100 [place] [address] 11/30/2024 14:51:01 11/30/2024 15:12:16 Perennial allergic rhinitis 177950858 J30.89 [id number] GABRIELA SHIN MD [facility] 100 [place] [address] 12/06/2024 12:51:12 12/06/2024 13:31:12 Sensorineural hearing loss of bilateral ears 782661242 H90.3 Perennial allergic rhinitis 095034135 J30.89 Feeling of lump in throat 675127963 R09.89 [id number] SHRUTHIAlma WAHL, [facility] Allergy 100 [facility] 100 [place] [address] 12/06/2024 13:37:15 12/06/2024 14:58:04 Perennial allergic rhinitis 729773818 J30.89 Health Concerns Section Related Observation LastModified by Organization Detai ls LastModified Time None Recorded Concern Status LastModified by Organization Details LastModified Time None Recorded Payers Encounter Date Sequence Insurance Name Policy Number Policy Jaramillo Covered Member ID Jaramillo Member ID Guarantor Name 12/06/2024 1 MEDICARE B-[place]: [facility] Joceline Estes [id number] Joceline Romero Estes 12/06/2024 2 [facility] (O) [id number] Joceline Estes [id number] Joceline Estes Notes Date Note Type Note Provider Name and Address Organization Details Recorded Time 12/06/2024 text/html ROS as noted in the HPI Joceline Estes is a 69-year-old female who presents for evaluation of persistent postnasal drip and phlegm in the throat. She reports that she started allergy injections in March and underwent a CAT scan in February, which demonstrated normal sinus findings. She has been using Flonase intermittently but has not been consistent with the prescribed medication or nasal rinses. She denies heartburn, acid indigestion, or difficulty with eating, drinking, swallowing, or voice changes. She has been taking Benadryl at night but has not used other allergy medications. She denies any changes in hearing or complaints from others regarding her hearing. She underwent a hearing test prior to February, which demonstrated mild high-tone hearing loss bilaterally. GABRIELA LOMBARDO MD [address] [place] [address], [place], [address], [facility] - [facility] 12/06/2024 13:32:07 OBGyn Episode No OBEpisode recorded.
--- OUTSIDE RECORDS SUMMARY | 2025-02-21 16:40 | XMS_ITS | Continuity of Care Document ---
Author Organization [place] - [facility], Allergy Address [address] [address] Care Team Providers Care Signal Engineer Name Role Phone SIM ANN Primary Care Provider Assessment Encounter Date Assessment Date Assessment LastModified by Organization Details LastModified Time 02/21/2025 02/21/2025 Visit With: Shruthi Wahl Use of Antihistamine s: No If yes: Vial Test Change in medications: No If yes Increase in asthma symptoms If yes, inhaler use: Reaction to last injections: No If yes: Allergy Symptoms: Other: Missed: Dose Aware of Vial Test Aware: Notes:will miss the next two weeks going to [facility] Not available 02/21/2025 14:56:33 Plan of Treatment Reminders Order Date Submit Date Provider Last Modified By Organization Details Last Modified Time Details Appointments Allergy Shot 2024 02:00P [facility] Not available Not available Not available Hearing Test 2025 01:30P M Hearing Test Not available Not available Not available [facility]- Allergy f-up 6mon 2025 02:00P M SATISH [...] Address Organization Details Recorded Time Chronic rhinitis 26598712 Active 2023 GABRIELA PACHECO MD [address], [address], [place] - [facility] [place] 4 10:59:27 Impacted cerumen of bilateral ears [id number] 108 Active 2023 GABRIELA PACHECO MD 100 [facility] [place], [place], [address], [place] [facility] [place] 4 10:59:44 Non-allergi c rhinitis 641359172111 Active 2023 GABRIELA PACHECO MD 100 [facility] [place], [place], [address], [place] [facility] [place] [place] 4 11:00:55 Abnormal auditory perception 67799687 Active 2023 GABRIELA PACHECO MD 100 [facility] [place], [place], [address], [place] [facility] [place] 4 11:01:38 Allergic rhinitis 64078182 Active 2023 FRANCESCA YPLE 100 [facility] [place], [place], [address], [place] [facility] [place] [place] 4 13:03:02 Sensorineur al hearing loss of bilateral ears 503779210 Active 2023 ADA SPEARS [address] [place], [place], [address], [facility] - [facility] [place] 4 13:31:38 Feeling of lump in throat 572121271 Active 2023 GABRIELA PACHECO MD 100 [facility] [place], [place], [address], [place] [facility] [place] 4 14:05:35 Chronic sinusitis 69919943 Active 2023 GABRIELA PACHECO MD 100 [facility] [place], [place], [address], [place] [facility] [place] [place] 4 14:06:50 Perennial allergic rhinitis 256715771 Active 2024 Dell Bart [address], [place], [address], [place] [facility] [place] [place] 14:32:29 Problem Notes None recorded. Procedures Surgical History Date Name Laterality Status Provider Name and Address Organization Details Recorded Time 02/22/20 25 Allergy Immunotherapy Injections completed RIO STOVERC, RMA [address],[place] [address], [place], [address], [place] [facility] [place] 02/21/2025 14:56:06 02/17/20 25 Allergy Immunotherapy Injections completed Dell Bart [address], [place], [address], [place] [facility] [place] 02/16/2025 14:09:07 02/03/20 25 Allergy Immunotherapy Injections completed RIO BRITO, RMA [address] [place] [address], [address], [place] [facility] 02/02/2025 14:27:51 01/27/20 25 Allergy Immunotherapy Injections completed ABELARDO SANTOS RN 100 [facility] [place],[address] [place] [address], [address], [place] [facility] [place] 01/26/2025 14:42:41 01/19/20 25 Allergy Immunotherapy Injections completed RIO BRITO, RMA [address] [place] [address], [address], [place] [facility] 01/18/2025 14:37:57 01/06/20 25 Allergy Immunotherapy Injections completed Dell Arriaga [address] [place] [address], [address], [place] [facility] [place] 01/05/2025 14:32:42 12/30/19 25 Allergy Immunotherapy Injections completed RIO STOVERC, RMA [address],[place], [place], [address], [place] [facility] [place] 12/29/2024 10:48:31 12/20/19 25 Allergy Immunotherapy Injections completed ABELARDO SANTOS RN 100 [facility] [place],[address] [place] [address], [address], [place] [facility] [place] 12/19/2024 13:44:08 12/15/19 25 Allergy Immunotherapy Injections completed SHRUTHI WAHL [facility] [address] [facility], [place], [address], [place] [facility] [place] 12/14/2024 14:20:22 12/07/19 25 Allergy Immunotherapy Injections completed RIO BRITO, RMA [address], [place], [address], [place] [facility] 12/06/2024 14:57:17 12/07/19 25 Fiberoptic Laryngoscopy (Comprehensive) completed GABRIELA LOMBARDO MD 100 [facility] [place],[address] [facility], [place], [address], [place] [facility] 12/06/2024 13:31:06 12/01/19 25 Allergy Immunotherapy Injections completed RIO BRITO, RMA [address], [address], [place] [facility] 11/30/2024 15:11:48 11/23/19 25 Allergy Immunotherapy Injections completed Dell Bart [address] [facility], [place], [address], [place] [facility] 11/22/2024 14:45:33 11/15/19 25 Allergy Immunotherapy Injections completed Dell Bart [address], [place], [address], [place] [facility] 11/14/2024 14:11:37 11/11/19 25 Allergy Immunotherapy Injections completed Dell Bart [address] [facility], [place], [address], [facility] - [facility] [place] 11/10/2024 13:36:45 11/04/19 25 Allergy Immunotherapy Injections completed Dell Bart [address] [facility] [place],[address] [place] [address], [address], [place] [facility] 11/03/2024 13:36:32 10/27/19 25 Allergy Immunotherapy Injections completed ABELARDO SANTOS RN [address] [facility] [place],[address] [facility], [place], [address], [place] [facility] 10/26/2024 15:07:11 10/20/19 25 Allergy Immunotherapy Injections completed RIO CKC, RMA [address], [place], [address], [place] [facility] 10/19/2024 14:22:48 10/04/19 25 Allergy Immunotherapy Injections completed RIO KORZEC, RMA [address], [place], [address], [place] [facility] 10/03/2024 15:03:51 09/28/19 25 Allergy Immunotherapy Injections completed RIO CRISZEC, RMA [address], [place], [address], [place] [facility] 09/27/2024 14:25:48 09/22/19 25 Allergy Immunotherapy Injections completed SHRUTHI WAHL, RMA [address], [place], [address], [place] [facility] 09/21/2024 15:30:42 09/14/19 25 Allergy Immunotherapy Injections completed RIO STOVERC, RMA [address], [place], [address], [place] [facility] 09/13/2024 14:01:19 09/07/19 25 Allergy Immunotherapy Injections completed ABELARDO SANTOS RN [address],[place] [address], [place], [address], [place] [facility] 09/06/2024 13:56:06 09/02/19 25 Allergy Immunotherapy Injections completed RIO STOVERC, RMA [address], [place], [address], [place] [facility] 09/01/2024 14:45:17 08/26/19 25 Allergy Immunotherapy Injections completed RIO KORZEC, RMA [address], [place], [address], [place] [facility] 08/25/2024 13:32:12 08/18/19 25 Allergy Immunotherapy Injections completed SHRUTHI WAHL RMA [address], [place], [address], [place] [facility] 08/17/2024 13:36:56 08/12/19 25 Allergy Immunotherapy Injections completed ABELARDO SANTOS RN [address], [place], [address], [place] [facility] 08/11/2024 13:47:58 08/02/19 25 Allergy Immunotherapy Injections completed ABELARDO SANTOS RN [address],[place] [address], [place], [address], [place] [facility] 08/01/2024 14:50:37 07/29/19 25 Allergy Immunotherapy Injections completed ABELARDO SANTOS RN [address],[place], [place], [address], [place] [facility] 07/28/2024 14:17:25 07/21/19 25 Allergy Immunotherapy Injections completed FRANCESCA PYLE [address] [facility], [place], [address], [place] [facility] 07/20/2024 14:39:33 07/14/19 25 Allergy Immunotherapy Injections completed ABELARDO SANTOS RN [address] [facility], [place], [address], [place] [facility] 07/13/2024 14:36:25 07/06/19 25 Allergy Immunotherapy Injections completed ABELARDO SANTOS RN [address] [place] [address], [address], [place] [facility] 07/05/2024 14:04:57 06/30/19 25 Allergy Immunotherapy Injections completed RIO BRITO RMAlma [address], [place], [address], [place] [facility] 06/29/2024 14:43:49 06/16/19 25 Allergy Immunotherapy Injections completed RIO BRITO RMA [address], [place], [address], [place] [facility] 06/15/2024 14:25:11 06/10/19 25 Allergy Immunotherapy Injections completed RIO BRITO RMAlma [address], [place], [address], [place] [facility] 06/09/2024 14:22:07 05/31/19 25 Allergy Immunotherapy Injections completed RIO BRITO RMA [facility] [place],[address], [address], [place] [facility] 05/30/2024 15:43:04 05/25/19 25 Allergy Immunotherapy Injections completed THA PYLEA [facility] [place],[address], [address], [place] [facility] 05/25/2024 14:21:31 05/11/19 25 Allergy Immunotherapy Injections completed RIO BRITO RMA 100 [facility],[address], [address], [place] [facility] [place] 05/11/2024 15:28:00 05/05/19 25 Allergy Immunotherapy Injections completed FRANCESCA PYLE 100 [facility],[address], [address], [place] [facility] [place] 05/05/2024 14:11:35 04/28/19 25 Allergy Immunotherapy Injections completed FRANCESCA PYLE 100 [facility],[address], [address], [place] [facility] [place] 04/28/2024 13:25:07 04/17/19 25 Allergy Immunotherapy Injections completed ABELARDO SANTOS RN 100 [facility],[address], [address], [place] [facility] [place] 04/17/2024 15:10:42 03/15/20 24 Comp Audio with Tymps - 37676 & 06584 completed ADA SPEARS 100 [facility],[address], [address], [place] [facility] 03/15/2024 13:31:32 03/15/20 24 Fiberoptic Laryngoscopy (Comprehensive) completed GABRIELA LOMBARDO MD 100 [facility] [place],[address], [address], [place] [facility] 03/15/2024 14:04:46 12/13/19 24 Allergy Testing-Full completed FRANCESCA PYLE 100 [facility],[address], [address], [facility] - [facility] 12/13/2023 14:11:35 tonsillectomy completed GABRIELA LOMBARDO MD 100 [facility],[address], [address], [facility] 11/26/2023 10:54:51 facial rhytidoplasty completed GABRIELA LOMBARDO MD 100 [facility],[address], [address], [facility] 11/26/2023 10:58:58 Imaging Results None recorded. Procedure Notes None recorded. Medical Equipment None Reported. Allergies Allergen ID Allergen Name Allergen Category Reaction Reaction Severity Criticality Documentation Date Start Date Code Code System Note Provider Name and Address Organization Details Recorded Time 839799 Bactrim medicatio n other mild Not available 12/13/2023 63372 9 RxNorm SHRUTHI WAHL, [facility] [address], [address], [facility] 4 13:07:20 959235 Product containin g penicilli n (product) medicatio n Not available Not available Not available 02/16/2025 76593 8001 SNOMED Not Available [email or web address] External Data Service - prod 13:58:50 062152 sulfameth oxazole / trimethop rim medicatio n Not available Not available Not available 02/16/2025 24066 RxNorm Not Available [email or web address] External Data Service - prod 5 13:58:50 [...] azelastine 137 mcg (0.1 %) nasal spray [place] 2 sprays twice a day by intranasa [...] ICD10 Code Diagnosis IMO Codes Diagnosis Note [id number] SHRUTHI WAHL [facility] Allergy 100 [facility] 100 [place] [address] 01/26/2025 14:09:54 01/26/2025 14:43:09 Perennial allergic rhinitis 017855247 J30.89 79336 RIO STOVER A Allergy 100 [facility] 100 [place] [address] 02/02/2025 14:10:57 02/02/2025 14:29:05 Perennial allergic rhinitis 941069397 J30.89 32109 Dell Arriaga All[facility] 100 [facility] 100 [place] [address] 02/16/2025 13:58:16 02/16/2025 14:09:48 Perennial allergic rhinitis 861004727 J30.89 50945 SHRUTHI WAHL, RMA Allergy 100 [facility] 100 [facility] [place] [address] 02/21/2025 14:15:12 02/21/2025 14:56:57 Perennial allergic rhinitis 877641086 J30.89 Health Concerns Section Related Observation LastModified by Organization Detai ls LastModified Time None Recorded Concern Status LastModified by Organization Details LastModified Time None Recorded Payers Encounter Date Sequence Insurance Name Policy Number Policy Jaramillo Covered Member ID Jaramillo Member ID Guarantor Name 02/21/2025 1 [place] [employer] Joceline Estes [id number] Joceline Estes 02/21/2025 2 [facility] [id number] Joceline Estes [id number] Joceline Estes OBGyn Episode No OBEpisode recorded.
--- OUTSIDE RECORDS SUMMARY | 2025-02-21 16:40 | XMS_ITS | Continuity of Care Document ---
Author Organization [place] - [facility], Allergy Address [address] [place] [address] Care Team Providers Care General Activities Therapist Name Role Phone SIM ANN Primary Care Provider [phone] Assessment Encounter Date Assessment Date Assessment LastModified by Organization Details LastModified Time 12/14/2024 12/14/2024 Visit With: Shruthi Wahl Use of Antihistamine s: No If yes: Vial Test Yes Change in medications: No If yes Increase in asthma symptoms If yes, inhaler use: Reaction to last injections: No If yes: Allergy Symptoms: Other: Missed: Dose Aware of Vial Test Aware: Notes: [email or web address] Not available 12/14/2024 14:20:26 Plan of Treatment Reminders Order Date Submit Date Provider Last Modified By Organization Details Last Modified Time Details Appointments Allergy Shot 2024 02:00P M [facility] Not available Not available Not available Hearing Test 2025 01:30P M Hearing Test Not available Not available Not available [facility] hed- Allergy f-up 6mon 2025 02:00P [...] Address Organization Details Recorded Time Chronic rhinitis 58643541 Active 2023 GABRIELA PACHECO MD 100 [facility] 100, [place], [address], [place] [facility] 4 10:59:27 Impacted cerumen of bilateral ears [id number] 108 Active 2023 GABRIELA PACHECO MD 100 [facility], E [facility], [place], [address], [place] [facility] 4 10:59:44 Non-allergi c rhinitis [id number] Active 2023 GABRIELA PACHECO MD 100 [facility], E [facility], [place], [address], [place] [facility] 4 11:00:55 Abnormal auditory perception 08865709 Active 2023 GABRIELA PACHECO MD 100 [facility], E 100, [place], [address], [place] [facility] 4 11:01:38 Allergic rhinitis 09496734 Active 2023 FRANCESCA PYLE 100 [facility], E 100, [place], [address], [facility] - [facility] 4 13:03:02 Sensorineur al hearing loss of bilateral ears 848091871 Active 2023 ADA SPEARS 100 [facility], E 100, [place], [address], [facility] - [facility] 4 13:31:38 Feeling of lump in throat 283477272 Active 2023 GABRIELA PACHECO MD 100 [facility], E 100, [place], [address], [facility] - [facility] 4 14:05:35 Chronic sinusitis 54348389 Active 2023 GABRIELA PACHECO MD 100 [facility],ST [address] 100, [place], [address], [facility] - [facility] 4 14:06:50 Perennial allergic rhinitis 391557323 Active 2024 Dell Abrt [address], [place], [address], [place] [facility] 14:32:29 Problem Notes None recorded. Procedures Surgical History Date Name Laterality Status Provider Name and Address Organization Details Recorded Time 02/22/20 25 Allergy Immunotherapy Injections completed IRO CKC, RMA [address] [facility], [place], [address], [place] [facility] 02/21/2025 14:56:06 02/17/20 25 Allergy Immunotherapy Injections completed Dell Bart [address] [facility] [address],JUDY [facility], [place], [address], [place] [facility] 02/16/2025 14:09:07 02/03/20 25 Allergy Immunotherapy Injections completed RIO STOVERC, RMA 100 [facility] [place],JUDY [address] [place] [address], [address], [place] [facility] 02/02/2025 14:27:51 01/27/20 25 Allergy Immunotherapy Injections completed ABELARDO SANTOS RN 100 [facility],[address], [address], [place] [facility] 01/26/2025 14:42:41 01/19/20 25 Allergy Immunotherapy Injections completed RIO STOVERC, RMA [address] [facility] [address],JUDY [address] [place] [address], [address], [facility] - [facility] 01/18/2025 14:37:57 01/06/20 25 Allergy Immunotherapy Injections completed Dell Chavarriaos 100 [facility] [place],JUDY [address] [place] [address], [address], [facility] - [facility] 01/05/2025 14:32:42 12/30/19 25 Allergy Immunotherapy Injections completed RIO STOVERC, RMA 100 [facility] [place],[address]UDY [address] [place] [address], [address], [facility] - [facility] 12/29/2024 10:48:31 12/20/19 25 Allergy Immunotherapy Injections completed ABELARDO SANTOS RN 100 [facility],[address]UD[address] [place] [address], [address], [place] [facility] 12/19/2024 13:44:08 12/15/19 25 Allergy Immunotherapy Injections completed SHRUTHI WAHL, RMA [address] [facility] [address], [place], [address], [place] [facility] 12/14/2024 14:20:22 12/07/19 25 Allergy Immunotherapy Injections completed RIO BRITO, RMA [address] [facility] [address], [place], [address], [place] [facility] 12/06/2024 14:57:17 12/07/19 25 Fiberoptic Laryngoscopy (Comprehensive) completed GABRIELA LOMBARDO MD 100 [facility],[address], [place], [address], [place] [facility] 12/06/2024 13:31:06 12/01/19 25 Allergy Immunotherapy Injections completed RIO BRITO, RMA [address] [facility] [address],JUDY [facility], [place], [address], [place] [facility] 11/30/2024 15:11:48 11/23/19 25 Allergy Immunotherapy Injections completed Dell Bart 100 [facility],[address], [place], [address], [place] [facility] 11/22/2024 14:45:33 11/15/19 25 Allergy Immunotherapy Injections completed Dell Bart [address] [facility] [address] 100, [place], [address], [place] [facility] 11/14/2024 14:11:37 11/11/19 25 Allergy Immunotherapy Injections completed Dell Bart 100 [facility],[address] 100, [place], [address], [place] [facility] 11/10/2024 13:36:45 11/04/19 25 Allergy Immunotherapy Injections completed Dell Bart 100 [facility],[address] 100, [place], [address], [place] [facility] 11/03/2024 13:36:32 10/27/19 25 Allergy Immunotherapy Injections completed ABELARDO SANTOS RN [address] [facility] [address], [place], [address], [place] [facility] 10/26/2024 15:07:11 10/20/19 25 Allergy Immunotherapy Injections completed RIO CRISZEC, RMA [address]UD[address], [place], [address], [place] [facility] 10/19/2024 14:22:48 10/04/19 25 Allergy Immunotherapy Injections completed RIO KORZEC, RMA [address] 100, [place], [address], [place] [facility] 10/03/2024 15:03:51 09/28/19 25 Allergy Immunotherapy Injections completed RIO CRISZEC, RMA [address]UD[address] 100, [place], [address], [place] [facility] 09/27/2024 14:25:48 09/22/19 25 Allergy Immunotherapy Injections completed SHRUTHI WAHL, RMA [address]UD[address], [place], [address], [place] [facility] 09/21/2024 15:30:42 09/14/19 25 Allergy Immunotherapy Injections completed RIO CRISZEC, RMA [address]UD[address] 100, [place], [address], [place] [facility] 09/13/2024 14:01:19 09/07/19 25 Allergy Immunotherapy Injections completed ABELARDO SANTOS RN [address], [place], [address], [place] [facility] 09/06/2024 13:56:06 09/02/19 25 Allergy Immunotherapy Injections completed RIO CKC, RMA [address]UD[address], [place], [address], [place] [facility] 09/01/2024 14:45:17 08/26/19 25 Allergy Immunotherapy Injections completed RIO KORZEC, RMA [address], [place], [address], [place] [facility] 08/25/2024 13:32:12 08/18/19 25 Allergy Immunotherapy Injections completed SHRUTHI WAHL RMA [address] 100, [place], [address], [place] [facility] 08/17/2024 13:36:56 08/12/19 25 Allergy Immunotherapy Injections completed ABELARDO SANTOS RN [address] 100, [place], [address], [place] [facility] 08/11/2024 13:47:58 08/02/19 25 Allergy Immunotherapy Injections completed ABELARDO SANTOS RN [address] 100, [place], [address], [place] [facility] 08/01/2024 14:50:37 07/29/19 25 Allergy Immunotherapy Injections completed ABELARDO SANTOS RN [address], [place], [address], [place] [facility] 07/28/2024 14:17:25 07/21/19 25 Allergy Immunotherapy Injections completed FRANCESCA PYLE [address], [place], [address], [place] [facility] 07/20/2024 14:39:33 07/14/19 25 Allergy Immunotherapy Injections completed ABELARDO SANTOS RN [address] [facility] [address], [place], [address], [place] [facility] 07/13/2024 14:36:25 07/06/19 25 Allergy Immunotherapy Injections completed ABELARDO SANTOS RN [address] [facility] [address], [place], [address], [place] [facility] 07/05/2024 14:04:57 06/30/19 25 Allergy Immunotherapy Injections completed RIO BRITO RMAlma [address], [place], [address], [place] [facility] 06/29/2024 14:43:49 06/16/19 25 Allergy Immunotherapy Injections completed RIO BRITO RMAlma [address], [place], [address], [place] [facility] 06/15/2024 14:25:11 06/10/19 25 Allergy Immunotherapy Injections completed RIO BRITO RMAlma [address], [place], [address], [place] [facility] 06/09/2024 14:22:07 05/31/19 25 Allergy Immunotherapy Injections completed RIO BRITO, RMA 100 [facility],[address], [address], [place] [facility] 05/30/2024 15:43:04 05/25/19 25 Allergy Immunotherapy Injections completed SHRUTHI WAHL A 100 [facility],[address], [address], [place] [facility] 05/25/2024 14:21:31 05/11/19 25 Allergy Immunotherapy Injections completed RIO BRITO RMA 100 [facility],[address], [address], [place] [facility] 05/11/2024 15:28:00 05/05/19 25 Allergy Immunotherapy Injections completed FRANCESCA PYLE 100 [facility],[address], [address], [place] [facility] 05/05/2024 14:11:35 04/28/19 25 Allergy Immunotherapy Injections completed FRANCESCA PYLE 100 [facility],[address], [address], [place] [facility] 04/28/2024 13:25:07 04/17/19 25 Allergy Immunotherapy Injections completed ABELARDO SANTOS RN 100 [facility],[address], [address], [place] [facility] 04/17/2024 15:10:42 03/15/20 24 Comp Audio with Tymps - 25313 & 11183 completed ADA SPEARS 100 [facility],[address], [address], [place] [facility] 03/15/2024 13:31:32 03/15/20 24 Fiberoptic Laryngoscopy (Comprehensive) completed GABRIELA LOMBARDO MD 100 [facility],[address], [address], [facility] - [facility] 03/15/2024 14:04:46 12/13/19 24 Allergy Testing-Full completed FRANCESCA PYLE 100 [facility],[address], [address], [facility] - [facility] 12/13/2023 14:11:35 tonsillectomy completed GABRIELA LOMBARDO MD [address], [address], [facility] 11/26/2023 10:54:51 facial rhytidoplasty completed GABRIELA LOMBARDO MD [address], [address], [facility] - [facility] 11/26/2023 10:58:58 Imaging Results None recorded. Procedure Notes None recorded. Medical Equipment None Reported. Allergies Allergen ID Allergen Name Allergen Category Reaction Reaction Severity Criticality Documentation Date Start Date Code Code System Note Provider Name and Address Organization Details Recorded Time 353548 Bactrim medicatio n other mild Not available 12/13/2023 07714 9 RxNorm FRANCESCA PYLE [address], [address], [facility] 4 13:07:20 631071 Product containin g penicilli n (product) medicatio n Not available Not available Not available 02/16/2025 63746 8001 SNOMED Not Available [employer] - prod 13:58:50 364375 sulfameth oxazole / trimethop rim medicatio n Not available Not available Not available 02/16/2025 46486 RxNorm Not Available [employer] - prod 13:58:50 Medications [...] azelastine 137 mcg (0.1 %) nasal spray Machias 2 sprays twice a day by intranasa [...] ICD10 Code Diagnosis IMO Codes Diagnosis Note [id number] ABELARDO SANTOS RN Allergy 100 [facility],[place] [address] [place] [address] 11/14/2024 13:26:34 11/14/2024 14:12:17 Perennial allergic rhinitis 314964974 J30.89 [id number] SHRUTHI WAHL [facility] Allergy 100 [facility],[place] [address] [place] [address] 11/22/2024 14:35:11 11/22/2024 14:46:12 Perennial allergic rhinitis 777225711 J30.89 [id number] RIO BRITO A Allergy 100 [facility],[place] [address] [place] [address] 11/30/2024 14:51:01 11/30/2024 15:12:16 Perennial allergic rhinitis 590129386 J30.89 [id number] GABRIELA SHIN MD [facility] 100 [place] [address] 12/06/2024 12:51:12 12/06/2024 13:31:12 Sensorineural hearing loss of bilateral ears 831604072 H90.3 Perennial allergic rhinitis 651183100 J30.89 Feeling of lump in throat 746508227 R09.89 [id number] SHRUTHI WAHL [facility] Allergy [address] [place] [address] 12/06/2024 13:37:15 12/06/2024 14:58:04 Perennial allergic rhinitis 267077125 J30.89 [id number] SHRUTHI WAHL [address] [address] 12/14/2024 13:09:31 12/14/2024 14:20:48 Perennial allergic rhinitis 882400677 J30.89 Health Concerns Section Related Observation LastModified by Organization Detai ls LastModified Time None Recorded Concern Status LastModified by Organization Details LastModified Time None Recorded Payers Encounter Date Sequence Insurance Name Policy Number Policy Jaramillo Covered Member ID Jaramillo Member ID Guarantor Name 12/14/2024 1 MEDICARE B-AK: [facility] [employer] Joceline Estes [id number] Joceline Estes 12/14/2024 2 [facility] (O) [id number] Joceline Estes [id number] Joceline Estes OBGyn Episode No OBEpisode recorded.
--- OUTSIDE RECORDS SUMMARY | 2025-02-21 16:40 | XMS_ITS | Continuity of Care Document ---
Author Organization [place] [facility] Formerly [facility], Allergy Address [address] [place] [address] Care Team Providers Care Medical Administrative Name Role Phone SIM ANN Primary Care Provider Assessment Encounter Date Assessment Date Assessment LastModified by Organization Details LastModified Time 12/19/2024 12/19/2024 Visit With: Shruthi Wahl Use of Antihistamine s: No If yes: Vial Test Change in medications: No If yes Increase in asthma symptoms If yes, inhaler use: Reaction to last injections: No If yes: Allergy Symptoms: Other: Missed: Dose Aware of Vial Test Aware: Notes: [email or web address] Not available 12/19/2024 13:44:12 Plan of Treatment Reminders Order Date Submit Date Provider Last Modified By Organization Details Last Modified Time Details Appointments Allergy Shot 2024 02:00P M [facility] Not available Not available Not available Hearing [...] Address Organization Details Recorded Time Chronic rhinitis 08975915 Active 2023 GABRIELA PACHECO MD 100 [facility] 100, [place], [address] [place] [facility] 4 10:59:27 Impacted cerumen of bilateral ears [id number] 108 Active 2023 GABRIELA PACHECO MD 100 [facility], E [facility], [facility] [place], [address], [facility] - [facility] [place] 4 10:59:44 Non-allergi c rhinitis [id number] Active 2023 GABRIELA PACHECO MD 100 [facility] E [facility], [email or web address] [place], [address], [facility] - [facility] [place] 4 11:00:55 Abnormal auditory perception 88443279 Active 2023 GABRIELA PACHECO MD 100 [facility] E [facility], [email or web address] [place], [address], [facility] - [facility] [place] 4 11:01:38 Allergic rhinitis 42726036 Active 2023 FRANCESCA PYLE 100 [facility], E [facility], [email or web address], [address], [facility] - [facility] [place] 4 13:03:02 Sensorineur al hearing loss of bilateral ears 017251742 Active 2023 ADA SPEARS 100 [facility], E 100, [email or web address], [address], [facility] - [facility] [place] 4 13:31:38 Feeling of lump in throat 188635945 Active 2023 GABRIELA PACHECO MD 100 [facility], E [facility], [address] , [place], [address], [facility] - [facility] [place] 4 14:05:35 Chronic sinusitis 34776278 Active 2023 GABRIELA PACHECO MD 100 [facility], E 100, [email or web address], [address], [facility] - [facility] [place] 4 14:06:50 Perennial allergic rhinitis 911950349 Active 2024 Dell Arriaga 100 [facility],[address], [place], [address], [place] [facility] 14:32:29 Problem Notes None recorded. Procedures Surgical History Date Name Laterality Status Provider Name and Address Organization Details Recorded Time 02/22/20 25 Allergy Immunotherapy Injections completed RIO BRITO, RMA [address], [place], [address], [place] [facility] [place] 02/21/2025 14:56:06 02/17/20 25 Allergy Immunotherapy Injections completed Dell Arriaga 100 [facility], [place], [address], [place] [facility] 02/16/2025 14:09:07 02/03/20 25 Allergy Immunotherapy Injections completed RIO BRITO, RMA 100 [facility],[address] [place] [address], [address], [place] [facility] 02/02/2025 14:27:51 01/27/20 25 Allergy Immunotherapy Injections completed ABELARDO SANTOS RN 100 [facility],[address], [address], [place] [facility] 01/26/2025 14:42:41 01/19/20 25 Allergy Immunotherapy Injections completed RIO BRITO, RMA 100 [facility],[address] [place] [address], [address], [facility] - [facility] 01/18/2025 14:37:57 01/06/20 25 Allergy Immunotherapy Injections completed Dell Arriaga 100 [facility],JUDY [address] [place] [address], [address], [facility] - [facility] 01/05/2025 14:32:42 12/30/19 25 Allergy Immunotherapy Injections completed RIO BRITO, RMA 100 [facility],[address] [place] [address], [address], [facility] - [facility] 12/29/2024 10:48:31 12/20/19 25 Allergy Immunotherapy Injections completed ABELARDO SANTOS RN 100 [facility],[address] [place] [address], [address], [place] [facility] 12/19/2024 13:44:08 12/15/19 25 Allergy Immunotherapy Injections completed SHRUTHI WAHL, RMA [address], [place], [address], [place] [facility] [place] 12/14/2024 14:20:22 12/07/19 25 Allergy Immunotherapy Injections completed RIO BRITO, RMA [address], [place], [address], [place] [facility] [place] 12/06/2024 14:57:17 12/07/19 25 Fiberoptic Laryngoscopy (Comprehensive) completed GABRIELA LOMBARDO MD [address], [place], [address], [place] [facility] [place] 12/06/2024 13:31:06 12/01/19 25 Allergy Immunotherapy Injections completed RIO BRITO, RMA [address], [place], [address], [place] [facility] [place] 11/30/2024 15:11:48 11/23/19 25 Allergy Immunotherapy Injections completed Dell Bart 100 [facility],[address] [facility], [place], [address], [place] [facility] [place] 11/22/2024 14:45:33 11/15/19 25 Allergy Immunotherapy Injections completed Dell Bart [address], [place], [address], [place] [facility] [place] 11/14/2024 14:11:37 11/11/19 25 Allergy Immunotherapy Injections completed Dell Bart 100 [facility],[address], [place], [address], [place] [facility] [place] 11/10/2024 13:36:45 11/04/19 25 Allergy Immunotherapy Injections completed Dell Bart [address], [place], [address], [place] [facility] [place] 11/03/2024 13:36:32 10/27/19 25 Allergy Immunotherapy Injections completed ABELARDO SANTOS RN [address], [place], [address], [place] [facility] [place] 10/26/2024 15:07:11 10/20/19 25 Allergy Immunotherapy Injections completed RIO CRISZEC, RMA [address], [place], [address], [place] [facility] [place] 10/19/2024 14:22:48 10/04/19 25 Allergy Immunotherapy Injections completed RIO KORZEC, RMA [address], [place], [address], [place] [facility] [place] 10/03/2024 15:03:51 09/28/19 25 Allergy Immunotherapy Injections completed RIO KORZEC, RMA [address], [place], [address], [place] [facility] [place] 09/27/2024 14:25:48 09/22/19 25 Allergy Immunotherapy Injections completed SHRUTHI WAHL, RMA [address], [place], [address], [place] [facility] [place] 09/21/2024 15:30:42 09/14/19 25 Allergy Immunotherapy Injections completed RIO CRISZEC, RMA [address], [place], [address], [place] [facility] [place] 09/13/2024 14:01:19 09/07/19 25 Allergy Immunotherapy Injections completed ABELARDO SANTOS RN [address], [place], [address], [place] [facility] [place] 09/06/2024 13:56:06 09/02/19 25 Allergy Immunotherapy Injections completed RIO CRISZEC, RMA [address], [place], [address], [place] [facility] [place] 09/01/2024 14:45:17 08/26/19 25 Allergy Immunotherapy Injections completed RIO KORZEC, RMA [address], [place], [address], [place] [facility] [place] 08/25/2024 13:32:12 08/18/19 25 Allergy Immunotherapy Injections completed SHRUTHI WAHL RMA [address], [place], [address], [place] [facility] [place] 08/17/2024 13:36:56 08/12/19 25 Allergy Immunotherapy Injections completed ABELARDO SANTOS RN [address], [place], [address], [place] [facility] [place] 08/11/2024 13:47:58 08/02/19 25 Allergy Immunotherapy Injections completed ABELARDO SANTOS RN [address], [place], [address], [place] [facility] [place] 08/01/2024 14:50:37 07/29/19 25 Allergy Immunotherapy Injections completed ABELARDO SANTOS RN [address], [place], [address], [place] [facility] [place] 07/28/2024 14:17:25 07/21/19 25 Allergy Immunotherapy Injections completed FRANCESCA PYLE [address], [place], [address], [place] [facility] [place] 07/20/2024 14:39:33 07/14/19 25 Allergy Immunotherapy Injections completed ABELARDO SANTOS RN [address] [place] [address], [address], [place] [facility] [place] 07/13/2024 14:36:25 07/06/19 25 Allergy Immunotherapy Injections completed ABELARDO SANTOS RN [address] [place] [address], [address], [place] [facility] [place] 07/05/2024 14:04:57 06/30/19 25 Allergy Immunotherapy Injections completed RIO BRITO RMAlma [address], [place], [address], [place] [facility] [place] 06/29/2024 14:43:49 06/16/19 25 Allergy Immunotherapy Injections completed RIO BRITO RMAlma [address], [place], [address], [place] [facility] [place] 06/15/2024 14:25:11 06/10/19 25 Allergy Immunotherapy Injections completed RIO BRITO RMAlma [address], [place], [address], [place] [facility] [place] 06/09/2024 14:22:07 05/31/19 25 Allergy Immunotherapy Injections completed IRO BRITO, RMA 100 [facility],[address], [address], [place] [facility] [place] 05/30/2024 15:43:04 05/25/19 25 Allergy Immunotherapy Injections completed SHRUTHI WAHL A 100 [facility],[address], [address], [place] [facility] [place] 05/25/2024 14:21:31 05/11/19 25 Allergy Immunotherapy Injections completed RIO BRITO A 100 [facility],[address], [address], [place] [facility] [place] 05/11/2024 15:28:00 05/05/19 25 Allergy Immunotherapy Injections completed THA PYLEA 100 [facility],[address], [address], [place] [facility] 05/05/2024 14:11:35 04/28/19 25 Allergy Immunotherapy Injections completed FRANCESCA PYLE 100 [facility],[address], [address], [place] [facility] [place] 04/28/2024 13:25:07 04/17/19 25 Allergy Immunotherapy Injections completed ABELARDO SANTOS RN 100 [facility],[address], [address], [place] [facility] [place] 04/17/2024 15:10:42 03/15/20 24 Comp Audio with Tymps - 43149 & 23686 completed ADA SPEARS 100 [facility],[address], [address], [place] [facility] [place] 03/15/2024 13:31:32 03/15/20 24 Fiberoptic Laryngoscopy (Comprehensive) completed GABRIELA LOMBARDO MD 100 [facility],[address], [address], [facility] - [facility] [place] 03/15/2024 14:04:46 12/13/19 24 Allergy Testing-Full completed THA PYLEA 100 [facility],[address], [address], [facility] - [facility] 12/13/2023 14:11:35 tonsillectomy completed GABRIELA LOMBARDO MD 100 [facility],[place] [address], [place], [address], [facility] 11/26/2023 10:54:51 facial rhytidoplasty completed GABRIELA LOMBARDO MD 100 [facility],[place] [address], [place], [address], [facility] - [facility] 11/26/2023 10:58:58 Imaging Results None recorded. Procedure Notes None recorded. Medical Equipment None Reported. Allergies Allergen ID Allergen Name Allergen Category Reaction Reaction Severity Criticality Documentation Date Start Date Code Code System Note Provider Name and Address Organization Details Recorded Time 834532 Bactrim medicatio n other mild Not available 12/13/2023 89551 9 RxNorm FRANCESCA PYLE 100 [facility] 100[place], [place], [address], [facility] 4 13:07:20 256710 Product containin g penicilli n (product) medicatio n Not available Not available Not available 02/16/2025 40219 8001 SNOMED Not Available [employer] - prod 13:58:50 725360 sulfameth oxazole / trimethop rim medicatio n Not available Not available Not available 02/16/2025 10989 RxNorm Not Available [employer] - prod 13:58:50 Medications [...] azelastine 137 mcg (0.1 %) nasal spray [place] 2 sprays twice a day by intranasa [...] ICD10 Code Diagnosis IMO Codes Diagnosis Note [id number] SHRUTHI WAHL [facility] Allergy [address] [place] [address] 11/22/2024 14:35:11 11/22/2024 14:46:12 Perennial allergic rhinitis 760223689 J30.89 50530 RIO STOVER [facility] Allergy [address] [address] 11/30/2024 14:51:01 11/30/2024 15:12:16 Perennial allergic rhinitis 023863022 J30.89 14774 GABRIELA SHIN MD [facility] 100 [place] [address] 12/06/2024 12:51:12 12/06/2024 13:31:12 Sensorineural hearing loss of bilateral ears 294553526 H90.3 Perennial allergic rhinitis 836893724 J30.89 Feeling of lump in throat 348293112 R09.89 04692 SHRUTHI WAHL [facility] Allergy 100 [facility] 100 [place] [address] 12/06/2024 13:37:15 12/06/2024 14:58:04 Perennial allergic rhinitis 506097010 J30.89 91211 SHRUTHI WAHL [facility]ergy 100 [facility] 100 [place] [address] 12/14/2024 13:09:31 12/14/2024 14:20:48 Perennial allergic rhinitis 516195434 J30.89 70483 SHRUTHI WAHL [facility] 100 [facility] 100 [place] [address] 12/19/2024 13:33:44 12/19/2024 13:44:24 Perennial allergic rhinitis 050073984 J30.89 Health Concerns Section Related Observation LastModified by Organization Detai ls LastModified Time None Recorded Concern Status LastModified by Organization Details LastModified Time None Recorded Payers Encounter Date Sequence Insurance Name Policy Number Policy Jaramillo Covered Member ID Jaramillo Member ID Guarantor Name 12/19/2024 1 MEDICARE B-[place]: [facility] [employer] Joceline Estes [id number] Joceline Estes 12/19/2024 2 [facility] (O) [id number] Joceline Estes [id number] Joceline Estes OBGyn Episode No OBEpisode recorded.
--- OUTSIDE RECORDS SUMMARY | 2025-02-21 16:40 | XMS_ITS | Clinical Summary ---
Author Organization [facility] [address] [facility] Address [address] [place] [address] Phone Care Team Providers Care Aeronautical Engineering Officer Name Role Phone Shemar Loera MD Primary Care Provider [phone] Allergies Active Allergy Reactions Criticality Noted Date Comments Penicillins Hives 07/19/2017 Sulfamethoxazole-Trimethoprim Dizziness 2017 Bactrim Medications fluticasone propionate (FLONASE) 50 mcg/actuation nasal spray Administer 2 sprays into each nostril 1 (one) time each day. Shake liquid Active FLUoxetine (PROzac) 40 mg capsule TAKE 1 CAPSULE BY MOUTH TWICE DAILY 180 capsule 2 04/13/19 25 Active Additional Information Patient taking differently:40 mg oralDaily, Reported on 09/18/2024 eletriptan (RELPAX) 40 mg tablet Take 1 tablet (40 mg total) by mouth 1 (one) time if needed for headaches. 6 tablet 3 08/15/19 25 Active LevoxyL 75 mcg tabletIndicatio ns:Hypothyroidi sm, unspecified type Take 1 tablet (75 mcg total) by mouth 1 (one) time each day. 90 tablet 3 09/19/19 25 Active simvastatin (ZOCOR) 40 mg tablet TAKE 1 TABLET BY MOUTH EVERY DAY 90 tablet 1 01/30/20 25 Active simvastatin (ZOCOR) 40 mg tablet TAKE 1 TABLET BY MOUTH DAILY 90 tablet 1 07/13/19 25 025 Discontinued Active Problems Problem Noted Date Diagnosed Date Dermatochalasis of both upper eyelids 02/20/2019 Facial rhytids 10/17/2018 Elevated LFTs 07/23/2017 Anxiety and depression 07/22/2017 Assessment & Plan (05/30/2024 3:58 PM EST): Stable on Prozac. Refills done on Ambien uses sparingly only before flying .Orders: CBC and differential; Future Comprehensive metabolic panel; Future Lipid panel with reflex to direct LDL; Future Thyroid stimulating hormone; Future Ears, Hyperlipidemia 07/19/2017 Hypothyroidism 07/19/2017 Assessment & Plan (05/30/2024 3:58 PM EST): Stable on Levoxyl. Check TSH. Orders: CBC and differential; Future Comprehensive metabolic panel; Future Lipid panel with reflex to direct LDL; Future Thyroid stimulating hormone; Future Insomnia 07/19/2017 Assessment & Plan (05/30/2024 3:58 PM EST): Use sparingly. Ambien sent to pharmacy Migraine 07/19/2017 Immunizations Immunization Administration Dates Next Due Pneumococcal conjugate 13 va lent (Prevnar 13, PCV13) 2mo and older 04/15/2020 Zoster recombinant (Shingrix) 19yo and older Medical History Medical History Date Comments Anxiety and depression 07/22/2017 DX:Anxiet y and depression Elevated LFTs 07/23/2017 DX:Elevated LFTs Hyperlipidemia 07/19/2017 DX:Hyperlipidemi a Hypothyroidism 07/19/2017 DX:Hypothyroidis m Insomnia 07/19/2017 DX:Insomnia Migraine 07/19/2017 DX:Migraine Family History Medical History Relation Name Comments Diabetes Father Asthma Mother Relation Name Status Comments Father Mother Social History Tobacco Use Types Packs/Day Years Used Date Smoking Tobacco: Never Smokeless Tobacco: Never Tobacco Cessation:Counseling Given: Not Answered Alcohol Use Standard Drinks/Week Comments Yes 0 (1 standard drink = 0.6 oz pur e alcohol) Comments No Sex and Gender Information Value Date Recorded Sex Assigned at Not on file Legal Sex Female 8:12 AM EST Gender Identity Not on file Sexual Orientation Not on file Obstetrics History Last Filed Vital Signs Vital Sign Reading Time Taken Comments Blood Pressure 110/62 09/18/2024 1:02 PM EDT C Pulse 78 09/18/2024 1:02 PM EDT Temperature 36.2 C (97.1 F) 09/18/2024 1:02 PM EDT Respiratory Rate - - Oxygen Saturation 95% 09/18/2024 1:02 PM EDT Inhaled Oxygen Concentration - - Weight 62.9 kg (138 lb 9.6 oz) 09/18/2024 1:02 P M EDT Height 157.5 cm (5' 2 ) 09/18/2024 1:02 PM EDT Body Mass Index 25.35 09/18/2024 1:02 PM EDT Plan of Treatment Health Maintenance Due Date Last Done Comments Breast Cancer Screening 1955 DTaP,Tdap,and Td Vaccines (1 - Tdap) 1974 Pneumococcal Vaccine: 50+ Years (2 of 2 - PCV20 or PCV21) 04/15/2021 04/15/2020 Hepatitis C Screening 03/07/2022 Social Influencers of Health Screening 03/07/2022 COVID-19 Vaccine ( season) 2024 01/26/2022, 02/10/2021, 08/01/2020, Additional history exists Falls Risk Assessment 05/30/2025 05/30/2024 Medicare Annual Wellness Visit 05/30/2025 05/30/2024 Colorectal Cancer Screening: FIT-DNA (Cologuard) 07/07/2025 07/07/2022, 07/07/2022 Cholesterol Screening (Lipid Panel) 07/14/2029 07/14/2024 RSV Immunization Adult Patients (1 - 1-dose 75+ series) 2030 Osteoporosis Screening (Bone Density Screening) 06/20/2033 06/21/2023 Zoster Vaccines Completed 04/21/2021, 01/16/2021 Depression Screening Completed 05/30/2024 Influenza Vaccine Completed 02/03/2025, , 02/06/2021 HIB Vaccines Aged Out No longer eligi ble based on patient's age to complete this topic HPV Vaccines Aged Out No longer eligi ble based on patient's age to complete this topic Hepatitis A Vaccines Aged Out No long er eligible based on patient's age to complete this topic Hepatitis B Vaccines Aged Out No long er eligible based on patient's age to complete this topic IPV Vaccines Aged Out No longer eligi ble based on patient's age to complete this topic MMR Vaccines Aged Out No longer eligi ble based on patient's age to complete this topic Meningococcal ACWY Vaccine Aged Out N o longer eligible based on patient's age to complete this topic Meningococcal B Vaccine Aged Out No l onger eligible based on patient's age to complete this topic RSV Immunization Patients Under 20 months Aged Out No longer eligible based on patient's age to complete this topic Varicella Vaccines Aged Out No longer eligible based on patient's age to complete this topic Procedures Procedure Name Priority Date/Time Associated Diagnosis Comments LIPID PANEL WITH REFLEX TO DIRECT LDL Routine 07/14/2024 12:29 PM EDT Hypercholesterolemia Hypothyroidism, unspecified type Anxiety and depression CHACORTA DEXA AXIAL SKELETON Routine 06/21/2023 11:19 AM EDT Other specified disorders of bone density and structure, other site from Last 3 Months or Most Recently Relevant to Health Maintenance Results * (ABNORMAL) Lipid panel with reflex to direct LDL (07/14/2024 12:29 PM EDT) Cholesterol 220(H) 0 - 200 mg/dL LAB CHEMISTRY METHOD 07/14/2024 3:45 PM EDT [facility] Triglycerides 144 0 - 150 mg/dL LAB CHEMISTRY METHOD 07/14/2024 3:45 PM EDT [facility] HDL 71 >=40 mg/dL LAB CHEMISTRY METHOD 07/14/2024 3:45 PM EDT [facility] LDL Calculated 120(H) 0 - 100 mg/dL LAB CHEMISTRY METHOD 07/14/2024 3:45 PM EDT [facility] VLDL Cholesterol [place] 28.8 mg/dL LAB CHEMISTRY METHOD 07/14/2024 3:45 PM EDT [facility] Non HDL Chol. (LDL+VLDL) 149(H) <145 mg/dL LAB CHEMISTRY METHOD 07/14/2024 3:45 PM EDT [facility] Chol/HDL Ratio 3.1 0.0 - 4.4 LAB CHEMISTRY METHOD 07/14/2024 3:45 PM EDT [facility] Blood Venous blood specimen / Unknown Venipuncture / Unknown 07/14/2024 12:29 PM EDT 07/14/2024 1:47 PM EDT us Shemar Loera MD LAB BLOOD ORDERABLES Final Resul t [facility] [address] [place] [address], [place] [phone] * CHACORTA DEXA AXIAL SKELETON (06/21/2023 11:19 AM EDT) Anatomical Region Laterality Modality Mammography 06/21/2023 10:5 3 AM EDT Narrative 06/21/2023 11:19 AM EDT [facility] Diagnostic Imaging Department [address] [place] [address] Patient: JOCELINE DENT D.O.B./Age/Sex: 1955 - 68 - F Unit#: [id number] [facility] Mnemonic/Ordering Site: [facility] Ordering Physician: SHEMAR LOERA MD Chacorta Dexa Axial Skeleton - 06/21/23 - 1109 Report Status:Signed HISTORY: The patient is a 68-year-old postmenopausal female with clinical concern for metabolic bone disease. FINDINGS: Dual energy x-ray absorptiometry of the lumbar spine and femurs is performed. The mean bone mineral density at L1-L4 (with the exclusion of L3) is 1.002 gm/cm2 which is 86% of that of young normals and 104% of that of age matched controls. This yields a T-score of -1.4 and a Z-score of 0.3 which is diagnostic of osteopenia. The mean bone mineral density of the femurs bilaterally is 0.920 gm/cm2 which is 91% of that of young normals and 111% of that of age matched controls. This yields a T-score of -0.7 and a Z-score of 0.7 and there is therefore no evidence of osteoporosis or osteopenia here. However, the T-score of the right femoral neck is -2.0 and that of the left femoral neck is -2.0 which is diagnostic of osteopenia. IMPRESSION: 1. Osteopenia. 2. FRAX analysis yields a 10-year probability of major osteoporotic fracture of 11.7% and a 10-year probability of hip fracture of 2.1%. Code 45306 Dictating Physician: TONI MOE MD Electronically Signed by: TONI MOE MD Dic Date/Time: 06/21/23 1118 Sign date/Time: 06/21/23 1119 Procedure Note Toni Moe MD - 11/15/2023 [facility] Diagnostic Imaging Department [address] [place] [id number] Patient: JOCELINE DENT./Age/Sex: 1955 - 68 - F Unit#: [id number] Location/Status: [facility]/REG CLI [facility] Ordering Physician: SHEMAR LOERA MD Chacorta Dexa Axial Skeleton - 06/21/23 - 110 Report Status:Signed HISTORY: The patient is a 68-year-old postmenopausal female withclinical concern for metabolic bone disease. FINDINGS: Dual energy x-ray absorptiometry of the lumbar spine and femursis performed. The mean bone mineral density at L1-L4 (with the exclusion ofL3) is 1.002 gm/cm2 which is 86% of that of young normals and 104% of that ofage matched controls. This yields a T-score of -1.4 and a Z-score of 0.3 whichis diagnostic of osteopenia. The mean bone mineral density of the femurs bilaterally is 0.920 gm/[id number] is 91% of that of young normals and 111% of that of age matched controls.This yields a T-score of -0.7 and a Z-score of 0.7 and there is therefore noevidence of osteoporosis or osteopenia here. However, the T-score of the rightfemoral neck is -2.0 and that of the left femoral neck is -2.0 which is diagnosticof osteopenia. IMPRESSION: 1. Osteopenia. 2. FRAX analysis yields a 10-year probability of major osteoporoticfracture of 11.7% and a 10-year probability of hip fracture of 2.1%. Code 68650 Dictating Physician: TONI MOE MD Electronically Signed by: TONI MOE MD Dic Date/Time: 06/21/23 1118 Sign date/Time: 06/21/23 111 Shemar Loera MD IMG BI PROCEDURES Final Result from Last 3 Months or Most Recently Relevant to Health Maintenance Insurance MEDICARE [facility]) Care Teams Aeronautical Engineering Officer Relationship Specialty Start Date End Date Shemar Loera MD [address] [facility] [address] [place] [address] PCP - General Internal Medicine 02/21/18
--- OUTSIDE RECORDS SUMMARY | 2025-02-21 16:40 | XMS_ITS | Continuity of Care Document ---
Author Organization [place] - [facility], Allergy Address [address] [place] [address] Care Team Providers Care Tech Writer Name Role Phone SIM ANN Primary Care Provider Assessment Encounter Date Assessment Date Assessment LastModified by Organization Details LastModified Time 11/30/2024 11/30/2024 Visit With: FRANCESCA Ozuna Use of Antihistamine s: No If yes: Vial Test Change in medications: No If yes Increase in asthma symptoms If yes, inhaler use: Reaction to last injections: No If yes: Allergy Symptoms: Other: Missed: Dose Aware of Vial Test Aware: Notes: [email or web address] Not available 11/30/2024 15:11:53 Plan of Treatment Reminders Order Date Submit Date Provider Last Modified By Organization Details Last Modified Time Details Appointments Allergy Shot 2024 02:00P [facility] Not available Not available Not available Hearing Test 2025 01:30P M Hearing Test Not available Not available Not available [facility] hed- Allergy f-up 6mon 2025 02:00P [...] Address Organization Details Recorded Time Chronic rhinitis 70347384 Active 2023 GABRIELA PACHECO MD 100 [facility] [address], [place], [address], [place] - [facility] 4 10:59:27 Impacted cerumen of bilateral ears [id number] 108 Active 2023 GABRIELA PACHECO MD 100 [facility], [address], [email or web address], [address], [place] - [facility] 4 10:59:44 Non-allergi c rhinitis [id number] Active 2023 GABRIELA PACHECO MD 100 [facility], [address], [email or web address], [address], [place] [facility] 4 11:00:55 Abnormal auditory perception 06205437 Active 2023 GABRIELA PACHECO MD 100 [facility], [address], [place], [address], [place] [facility] 4 11:01:38 Allergic rhinitis 70536187 Active 2023 FRANCESCA PYLE 100 [facility], [address], [place], [address], [place] [facility] 4 13:03:02 Sensorineur al hearing loss of bilateral ears 352167597 Active 2023 ADA SPEARS 100 [facility],[address], [place], [address], [place] [facility] 4 13:31:38 Feeling of lump in throat 024625995 Active 2023 GABRIELA PACHECO MD 100 [facility], [address], [place], [address], [place] [facility] 4 14:05:35 Chronic sinusitis 39512951 Active 2023 GABRIELA PACHCEO MD 100 [facility],[address], [place], [address], [place] [facility] 4 14:06:50 Perennial allergic rhinitis 915016892 Active 2024 Dell Bart [address], [place], [address], [place] [facility] 14:32:29 Problem Notes None recorded. Procedures Surgical History Date Name Laterality Status Provider Name and Address Organization Details Recorded Time 02/22/20 25 Allergy Immunotherapy Injections completed RIO CKC, RMA [address], [place], [address], [place] [facility] 02/21/2025 14:56:06 02/17/20 25 Allergy Immunotherapy Injections completed Dell Bart [address] [facility], [place], [address], [place] [facility] 02/16/2025 14:09:07 02/03/20 25 Allergy Immunotherapy Injections completed RIO STOVERC, RMA [address] [facility] [address], [address], [place] [facility] 02/02/2025 14:27:51 01/27/20 25 Allergy Immunotherapy Injections completed ABELARDO SANTOS RN 100 [facility],[address], [address], [place] [facility] 01/26/2025 14:42:41 01/19/20 25 Allergy Immunotherapy Injections completed RIO STOVERC, RMA [address] [place] [address], [address], [place] [facility] 01/18/2025 14:37:57 01/06/20 25 Allergy Immunotherapy Injections completed Dell Chavarriaos [address] [facility] [address] [facility] [place], [address], [place] [facility] 01/05/2025 14:32:42 12/30/19 25 Allergy Immunotherapy Injections completed RIO STOVERC, RMA [address] [facility],[address] [place] [address], [address], [place] [facility] 12/29/2024 10:48:31 12/20/19 25 Allergy Immunotherapy Injections completed ABELARDO SANTOS RN 100 [facility],JUDY [address] [place] [address], [address], [place] [facility] 12/19/2024 13:44:08 12/15/19 25 Allergy Immunotherapy Injections completed RADHA THOMPSON, A [address], [place], [address], [place] [facility] 12/14/2024 14:20:22 12/07/19 25 Allergy Immunotherapy Injections completed RIO BRITO, RMA [address], [place], [address], [place] [facility] 12/06/2024 14:57:17 12/07/19 25 Fiberoptic Laryngoscopy (Comprehensive) completed GABRIELA LOMBARDO MD 100 [facility],[address] [facility], [place], [address], [place] [facility] 12/06/2024 13:31:06 12/01/19 25 Allergy Immunotherapy Injections completed RIO BRITO, RMA [address] [facility], [place], [address], [place] [facility] 11/30/2024 15:11:48 11/23/19 25 Allergy Immunotherapy Injections completed Dell Bart [address] [facility],[address] [facility] [place], [address], [place] [facility] 11/22/2024 14:45:33 11/15/19 25 Allergy Immunotherapy Injections completed Dell Bart [address], [place], [address], [place] [facility] 11/14/2024 14:11:37 11/11/19 25 Allergy Immunotherapy Injections completed Dell Bart [address] [facility], [place], [address], [place] [facility] 11/10/2024 13:36:45 11/04/19 25 Allergy Immunotherapy Injections completed Dell Bart [address] [facility], [place], [address], [place] [facility] 11/03/2024 13:36:32 10/27/19 25 Allergy Immunotherapy Injections completed ABELARDO SANTOS RN [address], [place], [address], [place] [facility] 10/26/2024 15:07:11 10/20/19 25 Allergy Immunotherapy Injections completed RIO CRISLILIANAC, RMA [address], [place], [address], [place] [facility] 10/19/2024 14:22:48 10/04/19 25 Allergy Immunotherapy Injections completed RIO KORZEC, RMA [address], [place], [address], [place] [facility] 10/03/2024 15:03:51 09/28/19 25 Allergy Immunotherapy Injections completed RIO CRISZEC, RMA [address], [place], [address], [place] [facility] 09/27/2024 14:25:48 09/22/19 25 Allergy Immunotherapy Injections completed RADHA THOMPSON, RMA [address], [place], [address], [place] [facility] 09/21/2024 15:30:42 09/14/19 25 Allergy Immunotherapy Injections completed RIO STOVERC, RMA [address], [place], [address], [place] [facility] 09/13/2024 14:01:19 09/07/19 25 Allergy Immunotherapy Injections completed ABELARDO SANTOS RN [address], [place], [address], [place] [facility] 09/06/2024 13:56:06 09/02/19 25 Allergy Immunotherapy Injections completed RIO STOVERC, RMA [address], [place], [address], [place] [facility] 09/01/2024 14:45:17 08/26/19 25 Allergy Immunotherapy Injections completed RIO KORZEC, RMA [address], [place], [address], [place] [facility] 08/25/2024 13:32:12 08/18/19 25 Allergy Immunotherapy Injections completed RADHA THOMPSON RMA [address], [place], [address], [place] [facility] 08/17/2024 13:36:56 08/12/19 25 Allergy Immunotherapy Injections completed ABELARDO SANTOS RN [address] [place] [address], [address], [place] [facility] 08/11/2024 13:47:58 08/02/19 25 Allergy Immunotherapy Injections completed ABELARDO SANTOS RN [address], [place], [address], [place] [facility] 08/01/2024 14:50:37 07/29/19 25 Allergy Immunotherapy Injections completed ABELARDO SANTOS RN [address] [facility], [place], [address], [place] [facility] 07/28/2024 14:17:25 07/21/19 25 Allergy Immunotherapy Injections completed FRANCESCA PYLE [address], [place], [address], [place] [facility] 07/20/2024 14:39:33 07/14/19 25 Allergy Immunotherapy Injections completed ABELARDO SANTOS RN [address] [place] [address], [address], [place] [facility] 07/13/2024 14:36:25 07/06/19 25 Allergy Immunotherapy Injections completed ABELARDO SANTOS RN [address], [place], [address], [place] [facility] 07/05/2024 14:04:57 06/30/19 25 Allergy Immunotherapy Injections completed FRANCESCA OZUNA [address], [place], [address], [place] [facility] 06/29/2024 14:43:49 06/16/19 25 Allergy Immunotherapy Injections completed RIO BRITO RMAlma [address], [place], [address], [place] [facility] 06/15/2024 14:25:11 06/10/19 25 Allergy Immunotherapy Injections completed RIO BRITO RMAlma [address], [place], [address], [place] [facility] 06/09/2024 14:22:07 05/31/19 25 Allergy Immunotherapy Injections completed RIO BRITO RMA [address] [facility],[address], [address], [place] [facility] 05/30/2024 15:43:04 05/25/19 25 Allergy Immunotherapy Injections completed RADHA THOMPSON RMA 100 [facility],[address], [address], [place] [facility] 05/25/2024 14:21:31 05/11/19 25 Allergy Immunotherapy Injections completed RIO BRITO RMA 100 [facility],[address], [address], [place] [facility] 05/11/2024 15:28:00 05/05/19 25 Allergy Immunotherapy Injections completed FRANCESCA PYLE 100 [facility],[address], [address], [place] [facility] 05/05/2024 14:11:35 04/28/19 25 Allergy Immunotherapy Injections completed FRANCESCA PYLE 100 [facility],[address], [address], [place] [facility] 04/28/2024 13:25:07 04/17/19 25 Allergy Immunotherapy Injections completed ABELARDO SANTOS RN 100 [facility],[address], [address], [place] [facility] 04/17/2024 15:10:42 03/15/20 24 Comp Audio with Tymps - 51692 & 58131 completed ADA SPEARS 100 [facility],[address], [address], [place] [facility] 03/15/2024 13:31:32 03/15/20 24 Fiberoptic Laryngoscopy (Comprehensive) completed GABRIELA LOMBARDO MD 100 [facility],[address], [address], [facility] - [facility] 03/15/2024 14:04:46 12/13/19 24 Allergy Testing-Full completed FRANCESCA PYLE 100 [facility], [address], [facility] 12/13/2023 14:11:35 tonsillectomy completed GABRIELA LOMBARDO MD [address], [address], [facility] 11/26/2023 10:54:51 facial rhytidoplasty completed GABRIELA LOMBARDO MD [address], [address], [facility] - [facility] 11/26/2023 10:58:58 Imaging Results None recorded. Procedure Notes None recorded. Medical Equipment None Reported. Allergies Allergen ID Allergen Name Allergen Category Reaction Reaction Severity Criticality Documentation Date Start Date Code Code System Note Provider Name and Address Organization Details Recorded Time 006484 Bactrim medicatio n other mild Not available 12/13/2023 85284 9 RxNorm FRANCESCA PYLE [address], [address], [facility] 4 13:07:20 565198 Product containin g penicilli n (product) medicatio n Not available Not available Not available 02/16/2025 91729 8001 SNOMED Not Available [employer] - prod 13:58:50 649976 sulfameth oxazole / trimethop rim medicatio n Not available Not available Not available 02/16/2025 21347 RxNorm Not Available [employer] External Data [employer] - prod 13:58:50 Medications [...] azelastine 137 mcg (0.1 %) nasal spray Temple 2 sprays twice a day by intranasa [...] ICD10 Code Diagnosis IMO Codes Diagnosis Note [address] [facility], [facility] Allergy [address] [place] [address] 100 [place] [address] 11/03/2024 13:24:25 11/03/2024 13:37:02 Perennial allergic rhinitis 231292495 J30.89 23983 ABELARDO SANTOS RN Allergy [address] [place] [address] ite 100 [place] [address] 11/10/2024 13:20:20 11/10/2024 13:37:29 Perennial allergic rhinitis 538741008 J30.89 08002 ABELARDO SANTOS RN Allergy [address] [place] [address] ite 100 [place] [address] 11/14/2024 13:26:34 11/14/2024 14:12:17 Perennial allergic rhinitis 246719746 J30.89 56589 RADHA THOMPSON, RMA Allergy 100 [facility],[place] ite 100 [facility] [place] [place] [address] 11/22/2024 14:35:11 11/22/2024 14:46:12 Perennial allergic rhinitis 668490034 J30.89 92059 RIO BRITO, RMA Allergy 100 [facility],[place] [address] [place] [address] 11/30/2024 14:51:01 11/30/2024 15:12:16 Perennial allergic rhinitis 821623432 J30.89 Health Concerns Section Related Observation LastModified by Organization Detai ls LastModified Time None Recorded Concern Status LastModified by Organization Details LastModified Time None Recorded Payers Encounter Date Sequence Insurance Name Policy Number Policy Jaramillo Covered Member ID Jaramillo Member ID Guarantor Name 11/30/2024 1 [place]ICARE [place]: [facility] [employer] Joceline Estes [id number] Joceline Estes 11/30/2024 2 [facility] ([place] [id number] Joceline Estes [id number] Joceline Estes OBGyn Episode No OBEpisode recorded.
--- OUTSIDE RECORDS SUMMARY | 2025-02-21 16:40 | XMS_ITS | Continuity of Care Document ---
Author Organization [place] [facility], Allergy Address [address] [place] [phone] Care Team Providers Care Java Manager Name Role Phone SIM ANN Primary Care Provider [phone] Assessment Encounter Date Assessment Date Assessment LastModified by Organization Details LastModified Time 11/22/2024 11/22/2024 Visit With: Dell Arriaga [place] Use of Antihistamine s: No If yes: Vial Test Change in medications: No If yes Increase in asthma symptoms No Asthma Hx If yes, inhaler use: Reaction to last injections: No If yes: Allergy Symptoms: Other: Missed: Dose Aware of Vial Test Aware: Notes: [email or web address] Not available 11/22/2024 14:45:52 Plan of Treatment Reminders Order Date Submit Date Provider Last Modified By Organization Details Last Modified Time Details Appointments Allergy Shot 2024 02:00P M [facility] Not available Not available Not available Hearing Test 2025 01:30P M Hearing Test Not available Not available Not available [facility] All[facility] f-up 6mon 2025 02:00P M [...] Address Organization Details Recorded Time Chronic rhinitis 65729141 Active 2023 GABRIELA PACHECO MD 100 [facility], [address], [place], [address] [place] [facility] [place] 4 10:59:27 Impacted cerumen of bilateral ears [id number] 108 Active 2023 GABRIELA PACHECO MD 100 [facility],[address], [place], [address], [place] [facility] [place] 4 10:59:44 Non-allergi c rhinitis [id number] Active 2023 GABRIELA PACHECO MD 100 [facility],[address], [place], [address], [place] [facility] [place] 4 11:00:55 Abnormal auditory perception 87744022 Active 2023 GABRIELA PACHECO MD 100 [facility], [place], [address], [place] [facility] [place] 4 11:01:38 Allergic rhinitis 06018717 Active 2023 FRANCESCA PYLE 100 [facility],[address], [place], [address], [place] [facility] [place] 4 13:03:02 Sensorineur al hearing loss of bilateral ears 866604476 Active 2023 ADA SPEARS 100 [facility], [place], [address], [place] [facility] [place] 4 13:31:38 Feeling of lump in throat 614415545 Active 2023 GABRIELA PACHECO MD 100 [facility], [place], [address], [place] [facility] [place] 4 14:05:35 Chronic sinusitis 09241253 Active 2023 GABRIELA PACHECO MD 100 [facility], [place], [address], [place] [facility] [place] 4 14:06:50 Perennial allergic rhinitis 936648087 Active 2024 Dell Bart [address], [place], [address], [place] [facility] [place] 14:32:29 Problem Notes None recorded. Procedures Surgical History Date Name Laterality Status Provider Name and Address Organization Details Recorded Time 02/22/20 25 Allergy Immunotherapy Injections completed RIO CKC, RMA [address] [facility] [address], [place], [address], [place] [facility] [place] 02/21/2025 14:56:06 02/17/20 25 Allergy Immunotherapy Injections completed Dell Bart [address] [facility] [address], [place], [address], [place] [facility] [place] 02/16/2025 14:09:07 02/03/20 25 Allergy Immunotherapy Injections completed RIO STOVERC, RMA 100 [facility],[address] [place] [address], [address], [place] [facility] 02/02/2025 14:27:51 01/27/20 25 Allergy Immunotherapy Injections completed ABELARDO SANTOS RN 100 [facility],[address] [place] [address], [address], [place] [facility] [place] 01/26/2025 14:42:41 01/19/20 25 Allergy Immunotherapy Injections completed RIO STOVERC, RMA [address] [facility] [address], [place], [address], [place] [facility] 01/18/2025 14:37:57 01/06/20 25 Allergy Immunotherapy Injections completed Dell Bart 100 [facility], [place], [address], [place] [facility] [place] 01/05/2025 14:32:42 12/30/19 25 Allergy Immunotherapy Injections completed RIO STOVERC, RMA [address] [facility] [address] [place] [address], [address], [place] [facility] [place] 12/29/2024 10:48:31 12/20/19 25 Allergy Immunotherapy Injections completed ABELARDO SANTOS RN 100 [facility],[address] [place] [address], [address], [place] [facility] 12/19/2024 13:44:08 12/15/19 25 Allergy Immunotherapy Injections completed RADHA THOMPSON, [facility] [address] [facility], [place], [address], [place] [facility] [place] 12/14/2024 14:20:22 12/07/19 25 Allergy Immunotherapy Injections completed RIO BRITO, RMA [address] [facility] [address], [place], [address], [place] [facility] [place] 12/06/2024 14:57:17 12/07/19 25 Fiberoptic Laryngoscopy (Comprehensive) completed GABRIELA LOMBARDO MD 100 [facility],[address], [address], [place] [facility] [place] 12/06/2024 13:31:06 12/01/19 25 Allergy Immunotherapy Injections completed RIO BRITO, RMA [address] [facility] [address] [facility], [place], [address], [place] [facility] [place] 11/30/2024 15:11:48 11/23/19 25 Allergy Immunotherapy Injections completed Dell Bart 100 [facility],[address] [facility], [place], [address], [place] [facility] [place] 11/22/2024 14:45:33 11/15/19 25 Allergy Immunotherapy Injections completed Dell Bart [address] [facility] [address], [place], [address], [place] [facility] [place] 11/14/2024 14:11:37 11/11/19 25 Allergy Immunotherapy Injections completed Dell Bart 100 [facility], [place], [address], [place] [facility] [place] 11/10/2024 13:36:45 11/04/19 25 Allergy Immunotherapy Injections completed Dell Bart 100 [facility],[address], [place], [address], [place] [facility] [place] 11/03/2024 13:36:32 10/27/19 25 Allergy Immunotherapy Injections completed ABELARDO SANTOS RN 100 [facility],[address], [place], [address], [place] [facility] [place] 10/26/2024 15:07:11 10/20/19 25 Allergy Immunotherapy Injections completed RIO CKC, RMA [address], [place], [address], [place] [facility] [place] 10/19/2024 14:22:48 10/04/19 25 Allergy Immunotherapy Injections completed RIO KORZEC, RMA [address], [place], [address], [place] [facility] [place] 10/03/2024 15:03:51 09/28/19 25 Allergy Immunotherapy Injections completed RIO CRISZEC, RMA [address], [place], [address], [place] [facility] [place] 09/27/2024 14:25:48 09/22/19 25 Allergy Immunotherapy Injections completed RADHA THOMPSON, RMA [address], [place], [address], [place] [facility] [place] 09/21/2024 15:30:42 09/14/19 25 Allergy Immunotherapy Injections completed RIO STOVERC, RMA [address], [place], [address], [place] [facility] [place] 09/13/2024 14:01:19 09/07/19 25 Allergy Immunotherapy Injections completed ABELARDO SANTOS RN [address], [place], [address], [place] [facility] [place] 09/06/2024 13:56:06 09/02/19 25 Allergy Immunotherapy Injections completed RIO STOVERC, RMA [address], [place], [address], [place] [facility] [place] 09/01/2024 14:45:17 08/26/19 25 Allergy Immunotherapy Injections completed RIO KORZEC, RMA [address], [place], [address], [place] [facility] [place] 08/25/2024 13:32:12 08/18/19 25 Allergy Immunotherapy Injections completed RADHA THOMPSON RMA [address], [place], [address], [place] [facility] [place] 08/17/2024 13:36:56 08/12/19 25 Allergy Immunotherapy Injections completed ABELARDO SANTOS RN [address], [place], [address], [place] [facility] [place] 08/11/2024 13:47:58 08/02/19 25 Allergy Immunotherapy Injections completed ABELARDO SANTOS RN [address], [place], [address], [place] [facility] [place] 08/01/2024 14:50:37 07/29/19 25 Allergy Immunotherapy Injections completed ABELARDO SANTOS RN [address], [place], [address], [place] [facility] [place] 07/28/2024 14:17:25 07/21/19 25 Allergy Immunotherapy Injections completed FRANCESCA PYLE [address], [place], [address], [place] [facility] [place] 07/20/2024 14:39:33 07/14/19 25 Allergy Immunotherapy Injections completed ABELARDO SANTOS RN [address] [facility] [address], [place], [address], [place] [facility] [place] 07/13/2024 14:36:25 07/06/19 25 Allergy Immunotherapy Injections completed ABELARDO SANTOS RN [address], [place], [address], [place] [facility] [place] 07/05/2024 14:04:57 06/30/19 25 Allergy Immunotherapy Injections completed FRANCESCA ROCHA [address], [place], [address], [place] [facility] [place] 06/29/2024 14:43:49 06/16/19 25 Allergy Immunotherapy Injections completed RIO BRITO RMA [address], [place], [address], [place] [facility] [place] 06/15/2024 14:25:11 06/10/19 25 Allergy Immunotherapy Injections completed RIO BRITO RMAlma [address], [place], [address], [place] [facility] [place] 06/09/2024 14:22:07 05/31/19 25 Allergy Immunotherapy Injections completed RIO BRITO RMA 100 [facility],[address], [address], [place] [facility] [place] 05/30/2024 15:43:04 05/25/19 25 Allergy Immunotherapy Injections completed RADHA THOMPSON A 100 [facility],[address], [address], [place] [facility] [place] 05/25/2024 14:21:31 05/11/19 25 Allergy Immunotherapy Injections completed RIO BRITO RMA 100 [facility],[address], [address], [place] [facility] [place] 05/11/2024 15:28:00 05/05/19 25 Allergy Immunotherapy Injections completed FRANCESCA PYLE 100 [facility],[address], [address], [place] [facility] 05/05/2024 14:11:35 04/28/19 25 Allergy Immunotherapy Injections completed FRANCESCA PYLE 100 [facility],[address], [address], [place] [facility] [place] 04/28/2024 13:25:07 04/17/19 25 Allergy Immunotherapy Injections completed ABELARDO SANTOS RN 100 [facility],[address], [address], [place] [facility] [place] 04/17/2024 15:10:42 03/15/20 24 Comp Audio with Tymps - 38922 & 70307 completed ADA SPEARS 100 [facility],[address], [address], [place] [facility] [place] 03/15/2024 13:31:32 03/15/20 24 Fiberoptic Laryngoscopy (Comprehensive) completed GABRIELA LOMBARDO MD 100 [facility],[address], [address], [facility] - [facility] [place] 03/15/2024 14:04:46 12/13/19 24 Allergy Testing-Full completed FRANCESCA PYLE [address], [address], [facility] - [facility] 12/13/2023 14:11:35 tonsillectomy completed GABRIELA LOMBARDO MD [address], [address], [facility] 11/26/2023 10:54:51 facial rhytidoplasty completed GABRIELA LOMBARDO MD 100 [facility],[address], [address], [facility] - [facility] 11/26/2023 10:58:58 Imaging Results None recorded. Procedure Notes None recorded. Medical Equipment None Reported. Allergies Allergen ID Allergen Name Allergen Category Reaction Reaction Severity Criticality Documentation Date Start Date Code Code System Note Provider Name and Address Organization Details Recorded Time 423036 Bactrim medicatio n other mild Not available 12/13/2023 68212 9 RxNorm FRANCESCA PYLE 100 [facility] [address], [place], [address], [facility] 4 13:07:20 523431 Product containin g penicilli n (product) medicatio n Not available Not available Not available 02/16/2025 06534 8001 SNOMED Not Available [employer] - prod 13:58:50 982669 sulfameth oxazole / trimethop rim medicatio n Not available Not available Not available 02/16/2025 14060 RxNorm Not Available [employer] - prod 5 13:58:50 [...] azelastine 137 mcg (0.1 %) nasal spray [place] 2 sprays twice a day by intranasa [...] ICD10 Code Diagnosis IMO Codes Diagnosis Note 01733 RIO STOVER [facility] Allergy [address] [place] [address] it 100 [facility] [address] 10/26/2024 15:01:12 10/26/2024 15:07:43 Perennial allergic rhinitis 202520752 J30.89 70682 RIO CK [facility] Allergy [address] [place] [address], ite 100 [place] [address] 11/03/2024 13:24:25 11/03/2024 13:37:02 Perennial allergic rhinitis 422985040 J30.89 18474 ABELARDO SANTOS RN Allergy [address] [place] [address], ite 100 [place] [address] 11/10/2024 13:20:20 11/10/2024 13:37:29 Perennial allergic rhinitis 393639652 J30.89 01713 ABELARDO SANTOS RN Allergy 100 [facility],[place] [address] [place] [address] 11/14/2024 13:26:34 11/14/2024 14:12:17 Perennial allergic rhinitis 219567642 J30.89 14000 FRANCESCA PYLE Allergy 100 [facility], ite 100 [facility] [place] [address] 11/22/2024 14:35:11 11/22/2024 14:46:12 Perennial allergic rhinitis 634693413 J30.89 Health Concerns Section Related Observation LastModified by Organization Detai ls LastModified Time None Recorded Concern Status LastModified by Organization Details LastModified Time None Recorded Payers Encounter Date Sequence Insurance Name Policy Number Policy Jaramillo Covered Member ID Jaramillo Member ID Guarantor Name 11/22/2024 1 [place] [facility] [employer] Joceline Estes [id number] Joceline Estes 11/22/2024 2 [facility] ([place] [id number] Joceline Estes [id number] Joceline Estes OBGyn Episode No OBEpisode recorded.
--- OUTSIDE RECORDS SUMMARY | 2025-02-21 16:40 | XMS_ITS | Continuity of Care Document ---
Author Organization [place] - [facility], [facility] Address [address] [place] [address] Care Team Providers Care Home Office Representative Name Role Phone SIM ANN Primary Care Provider Assessment Encounter Date Assessment Date Assessment LastModified by Organization Details LastModified Time 12/06/2024 12/06/2024 Assessment: - Persistent postnasal drip, likely allergy-related . - Mild high-tone hearing loss bilaterally. Plan: The patient was counseled on the importance of consistent use of prescribed medications and nasal rinses to manage her symptoms. A prescription for Astelin nasal spray was provided, as it is expected to be more effective than Flonase. The patient was advised to use the spray up to twice daily. Allergy injections were discussed, and the provider explained that improvement typically takes six months to three years, with the goal of reducing the need for medications over time. The patient will return in six months for an allergy follow-up and a repeat hearing test. The pharmacy location was confirmed Procedure Documentation: - Flexible nasal endoscopy performed to evaluate the throat and nasal passages. [email or web address] Not available 12/06/2024 13:31:52 Plan of Treatment Reminders Order Date Submit Date Provider Last Modified By Organization Details Last Modified Time Details Appointments Allergy Shot 2024 02:00P M [facility] Not available Not available Not available Hearing Test 2025 01:30P M Hearing Test Not available Not available Not available Establish ed- Allergy f-up 6mon 2025 02:00P M SATISH SHRESTHA Not available Not available Not available Lab None recorded. Referral None recorded. Procedures None recorded. Surgeries None recorded. Imaging None recorded. Medication Orders azelastin e 137 mcg (0.1 %) nasal spray 2024 025 [id number], [address] [place], [address], 12/06/2024 13:30:24 Patient TargetsNo targets recorded. Patient Instructions Encounter Date Encounter Id Patient Instructions Last Modified By Organization Details Last Modified Time 12/06/2024 [id number] - Use Astellin nasal spray up to twice daily. - Continue allergy injections as scheduled. - Return in six months for allergy follow-up and repeat hearing test. [email or web address] Not available 12/06/2024 13:30:35 Please note: Parts of this encounter note have been generated by AI based on audio conversation. Patient consent was required prior to utilizing this technology. Content review was required prior to finalizing the note. [email or web address] Not available 12/06/2024 13:30:35 Reason for Referral None Reported. Problems Name Problem SNOMED Code Status Onset Date Resolution Date Notes Provider Name and Address Organization Details Recorded Time Chronic rhinitis 52966706 Active 2023 GABRIELA PACHECO MD [address] [address], [place], [address], [facility] - [facility] 4 10:59:27 Impacted cerumen of bilateral ears [id number] 108 Active 2023 GABRIELA PACHECO MD [address] [address], [place], [address], [facility] 4 10:59:44 Non-allergi c rhinitis [id number] Active 2023 GABRIELA PACHECO MD [address] [facility], [address], [place], [address], [facility] 4 11:00:55 Abnormal auditory perception 35741822 Active 2023 GABRIELA PACHECO MD [address] [facility], [address], [place], [address], [facility] - [facility] [place] 4 11:01:38 Allergic rhinitis 02427985 Active 2023 RADHA THOMPSON [facility] [address] [facility], E [facility], [facility] [place], [address], [facility] - [facility] [place] 4 13:03:02 Sensorineur al hearing loss of bilateral ears 117459711 Active 2023 ADA SPEARS [address] [facility], E [facility], [facility] [place], [address], [facility] - [facility] [place] 4 13:31:38 Feeling of lump in throat 129210159 Active 2023 GABRIELA PACHECO MD [address] [facility], [address], [facility] [place], [address], [facility] - [facility] [place] 4 14:05:35 Chronic sinusitis 16319827 Active 2023 GABRIELA PACHECO MD [address] [facility], E [facility], [facility] [place], [address], [facility] - [facility] [place] 4 14:06:50 Perennial allergic rhinitis 830504226 Active 2024 Dell Arriaga [address] [facility], E [facility], [facility] [place], [address], [facility] - [facility] 5 14:32:29 Problem Notes None recorded. Procedures Surgical History Date Name Laterality Status Provider Name and Address Organization Details Recorded Time 02/22/20 25 Allergy Immunotherapy Injections completed RIO BRITO [facility] [address] [facility], [address], [facility] - [facility] [place] 02/21/2025 14:56:06 02/17/20 25 Allergy Immunotherapy Injections completed Dell Arriaga [address] [facility],[address], [address], [facility] - [facility] [place] 02/16/2025 14:09:07 02/03/20 25 Allergy Immunotherapy Injections completed RIO BRITO [facility] [address] [facility],[address], [address], [place] - [facility] [place] 02/02/2025 14:27:51 01/27/20 25 Allergy Immunotherapy Injections completed ABELARDO SANTOS RN [address],JUDY [facility], [place], [address], [place] [facility] [place] 01/26/2025 14:42:41 01/19/20 25 Allergy Immunotherapy Injections completed RIO BRITO, RM [address],JUDY [facility], [place], [address], [place] [facility] [place] 01/18/2025 14:37:57 01/06/20 25 Allergy Immunotherapy Injections completed Dell Arriaga [address]UD[address] [place] [address], [address], [place] [facility] [place] 01/05/2025 14:32:42 12/30/19 25 Allergy Immunotherapy Injections completed RIO BRITO, A [address],JUDY [address] [place] [address], [address], [place] [facility] [place] 12/29/2024 10:48:31 12/20/19 25 Allergy Immunotherapy Injections completed ABELARDO SANTOS RN [address] [facility],JUDY [facility], [place], [address], [place] [facility] [place] 12/19/2024 13:44:08 12/15/19 25 Allergy Immunotherapy Injections completed FRANCESCA PYLE [address] [place] [address], [address], [place] [facility] [place] 12/14/2024 14:20:22 12/07/19 25 Allergy Immunotherapy Injections completed RIO BRITO A [address]UD[address] [facility], [place], [address], [place] [facility] [place] 12/06/2024 14:57:17 12/07/19 25 Fiberoptic Laryngoscopy (Comprehensive) completed GABRIELA LOMBARDO MD [address] [place] [address], [address], [place] [facility] [place] 12/06/2024 13:31:06 12/01/19 25 Allergy Immunotherapy Injections completed RIO BRITO RMA [address] [facility],[place], [place], [address], [place] [facility] [place] 11/30/2024 15:11:48 11/23/19 25 Allergy Immunotherapy Injections completed Dell Bart [address], [place], [address], [place] [facility] [place] 11/22/2024 14:45:33 11/15/19 25 Allergy Immunotherapy Injections completed Dell Bart [address], [place], [address], [place] [facility] [place] 11/14/2024 14:11:37 11/11/19 25 Allergy Immunotherapy Injections completed Dell Bart [address], [place], [address], [place] [facility] [place] 11/10/2024 13:36:45 11/04/19 25 Allergy Immunotherapy Injections completed Dell Bart [address], [place], [address], [place] [facility] [place] 11/03/2024 13:36:32 10/27/19 25 Allergy Immunotherapy Injections completed ABELARDO SANTOS RN [address] [place] [address], [address], [place] [facility] [place] 10/26/2024 15:07:11 10/20/19 25 Allergy Immunotherapy Injections completed RIO BRIOT RMA [address], [place], [address], [place] [facility] [place] 10/19/2024 14:22:48 10/04/19 25 Allergy Immunotherapy Injections completed RIO BRITO RMAlma [address], [place], [address], [place] [facility] [place] 10/03/2024 15:03:51 09/28/19 25 Allergy Immunotherapy Injections completed RIO BRITO RMA [address], [place], [address], [place] [facility] 09/27/2024 14:25:48 09/22/19 25 Allergy Immunotherapy Injections completed FRANCESCA PYLE [address] [facility], [place], [address], [place] [facility] 09/21/2024 15:30:42 09/14/19 25 Allergy Immunotherapy Injections completed RIO BRITO, RMA [address],[place], [place], [address], [place] [facility] 09/13/2024 14:01:19 09/07/19 25 Allergy Immunotherapy Injections completed ABELARDO SANTOS RN [address],[place], [place], [address], [place] [facility] 09/06/2024 13:56:06 09/02/19 25 Allergy Immunotherapy Injections completed RIO BRITO, RMA [address], [place], [address], [place] [facility] 09/01/2024 14:45:17 08/26/19 25 Allergy Immunotherapy Injections completed RIO BRITO, RMA [address], [place], [address], [place] [facility] 08/25/2024 13:32:12 08/18/19 25 Allergy Immunotherapy Injections completed FRANCESCA PYLE [address] [facility], [place], [address], [place] [facility] [place] 08/17/2024 13:36:56 08/12/19 25 Allergy Immunotherapy Injections completed ABELARDO SANTOS RN [address] [place] [address], [address], [place] [facility] [place] 08/11/2024 13:47:58 08/02/19 25 Allergy Immunotherapy Injections completed ABELARDO SANTOS RN [address] [place] [address], [address], [place] [facility] [place] 08/01/2024 14:50:37 07/29/19 25 Allergy Immunotherapy Injections completed ABELARDO SANTOS RN [address] [place] [address], [address], [place] [facility] [place] 07/28/2024 14:17:25 07/21/19 25 Allergy Immunotherapy Injections completed FRANCESCA PYLE [address],[place], [place], [address], [place] [facility] 07/20/2024 14:39:33 07/14/19 25 Allergy Immunotherapy Injections completed ABELARDO SANTOS RN [address], [place], [address], [place] [facility] 07/13/2024 14:36:25 07/06/19 25 Allergy Immunotherapy Injections completed ABELARDO SANTOS RN [address], [place], [address], [place] [facility] 07/05/2024 14:04:57 06/30/19 25 Allergy Immunotherapy Injections completed RIO STOVERC, RMA [address], [place], [address], [place] [facility] 06/29/2024 14:43:49 06/16/19 25 Allergy Immunotherapy Injections completed RIO STOVERC, RMA [address],[place], [place], [address], [place] [facility] 06/15/2024 14:25:11 06/10/19 25 Allergy Immunotherapy Injections completed RIO STOVERC, RMA [address], [place], [address], [place] [facility] 06/09/2024 14:22:07 05/31/19 25 Allergy Immunotherapy Injections completed RIO STOVERC, RMA [address],[place], [place], [address], [place] [facility] 05/30/2024 15:43:04 05/25/19 25 Allergy Immunotherapy Injections completed RADHA THOMPSON RMA [address], [place], [address], [place] [facility] 05/25/2024 14:21:31 05/11/19 25 Allergy Immunotherapy Injections completed RIO STOVERC, RMA [address],[place], [place], [address], [place] [facility] 05/11/2024 15:28:00 05/05/19 25 Allergy Immunotherapy Injections completed RADHA THOMPSON RMA [address], [place], [address], [facility] - [facility] 05/05/2024 14:11:35 04/28/19 25 Allergy Immunotherapy Injections completed FRANCESCA PYLE 100 [facility],[address], [address], [facility] 04/28/2024 13:25:07 04/17/19 25 Allergy Immunotherapy Injections completed ABELARDO SANTOS RN [address] [facility],[address], [address], [facility] - [facility] 04/17/2024 15:10:42 03/15/20 24 Comp Audio with Tymps - 59758 & 12645 completed ADA SPEARS [address] [facility],[address], [address], [facility] - [facility] 03/15/2024 13:31:32 03/15/20 24 Fiberoptic Laryngoscopy (Comprehensive) completed GABRIELA LOMBARDO MD [address] [place] [address],[address], [address], [facility] - [facility] 03/15/2024 14:04:46 12/13/19 24 Allergy Testing-Full completed FRANCESCA PYLE [address] [facility],[address], [address], [facility] 12/13/2023 14:11:35 tonsillectomy completed GABRIELA LOMBARDO MD [address] [place] [address],[address], [address], [facility] - [facility] 11/26/2023 10:54:51 facial rhytidoplasty completed GABRIELA LOMBARDO MD [address] [place] [address],[address], [address], [facility] - [facility] 11/26/2023 10:58:58 Imaging Results None recorded. Procedure Notes None recorded. Medical Equipment None Reported. Allergies Allergen ID Allergen Name Allergen Category Reaction Reaction Severity Criticality Documentation Date Start Date Code Code System Note Provider Name and Address Organization Details Recorded Time 096597 Bactrim medicatio n other mild Not available 12/13/2023 86289 9 RxNorm FRANCESCA PYLE [address] [address], [facility] [place], [address], [facility] - [facility] 4 13:07:20 695844 Product containin g penicilli n (product) medicatio n Not available Not available Not available 02/16/2025 25594 8001 SNOMED Not Available rachel - External Data Service - prod 5 13:58:50 678604 sulfameth oxazole / trimethop rim medicatio n Not available Not available Not available 02/16/2025 51515 RxNorm Not Available rachel - External Data Service - prod 5 13:58:50 [...] Not Available phenazopyri dine 100 mg tablet 09/16 /2024 completed Not Available Not Available Not Available [...] azelastine 137 mcg (0.1 %) nasal spray [place] 2 sprays twice a day by intranasa [...] ICD10 Code Diagnosis IMO Codes Diagnosis Note [id number] ABELARDO SANTOS RN Allergy [address] [place] [address], [place] [address] 11/10/2024 13:20:20 11/10/2024 13:37:29 Perennial allergic rhinitis 417303810 J30.89 32028 ABELARDO SANTOS RN Allergy [address] [place] [address], [place] [address] 11/14/2024 13:26:34 11/14/2024 14:12:17 Perennial allergic rhinitis 879100519 J30.89 53532 RADHA THOMPSON [facility] Allergy [address] [place] [address], [place] [address] 11/22/2024 14:35:11 11/22/2024 14:46:12 Perennial allergic rhinitis 833494972 J30.89 29700 [facility] Allergy [address] [place] [address], [place] [address] 11/30/2024 14:51:01 11/30/2024 15:12:16 Perennial allergic rhinitis 376446000 J30.89 19847 GABRIELA SHIN MD [facility] [address] [place] [address] 12/06/2024 12:51:12 12/06/2024 13:31:12 Sensorineural hearing loss of bilateral ears 010266952 H90.3 Perennial allergic rhinitis 457356056 J30.89 Feeling of lump in throat 263330951 R09.89 09366 RADHA THOMPSON [facility] Allergy [address] [place] [address], [place] [address] 12/06/2024 13:37:15 12/06/2024 14:58:04 Perennial allergic rhinitis 952807423 J30.89 Health Concerns Section Related Observation LastModified by Organization Detai ls LastModified Time None Recorded Concern Status LastModified by Organization Details LastModified Time None Recorded Payers Encounter Date Sequence Insurance Name Policy Number Policy Jaramillo Covered Member ID Jaramillo Member ID Guarantor Name 12/06/2024 1 [place]IC[place] [employer] Joceline Estes [id number] Joceline Estes 12/06/2024 2 [facility] [id number] Joceline Estes [id number] Joceline Estes Notes Date Note Type [...] high-tone hearing loss bilaterally. GABRIELA LOMBARDO MD [address] [place] [address], [place], [address], [facility] - [facility] 12/06/2024 13:32:07 OBGyn Episode No OBEpisode recorded.
--- OUTSIDE RECORDS SUMMARY | 2025-02-21 16:40 | XMS_ITS ---
Author Name CRISP Organization Unknown Care Team Organization Name Specialty Phone Email Start Date End [facility] 11/15/2024 [facility] MARISSA MONTEMAYOR Primary Care 02/03/2022 11/15/19 24
--- OUTSIDE RECORDS SUMMARY | 2025-02-21 16:40 | XMS_ITS | Continuity of Care Document ---
Author Organization [place] - [facility], Allergy Address [address] [place] [address] Care Team Providers Care Medical Staff Coordinator Name Role Phone SIM ANN Primary Care Provider Assessment Encounter Date Assessment Date Assessment LastModified by Organization Details LastModified Time 01/26/2025 01/26/2025 Visit With: Shruthi Wahl Use of Antihistamine s: No If yes: Vial Test Change in medications: No If yes Increase in asthma symptoms If yes, inhaler use: Reaction to last injections: No If yes: Allergy Symptoms: Other: Missed: Dose Aware of Vial Test Aware: Notes: [email or web address] Not available 01/26/2025 14:42:50 Plan of Treatment Reminders Order Date Submit Date Provider Last Modified By Organization Details Last Modified Time Details Appointments Allergy Shot 2024 02:00P [facility] Not available Not available Not available Hearing [...] Address Organization Details Recorded Time Chronic rhinitis 13782902 Active 2023 GABRIELA PACHECO MD 100 [facility] 100, [place], [address] [place] [facility] 4 10:59:27 Impacted cerumen of bilateral ears [id number] 108 Active 2023 GABRIELA PACHECO MD 100 [facility], E [facility], [facility] [place], [address], [facility] - [facility] [place] 4 10:59:44 Non-allergi c rhinitis [id number] Active 2023 GABRIELA PACHECO MD 100 [facility] E [facility], [place], [address], [facility] - [facility] [place] 4 11:00:55 Abnormal auditory perception 21171211 Active 2023 GABRIELA PACHECO MD 100 [facility] E [facility], [place], [address], [facility] - [facility] [place] 4 11:01:38 Allergic rhinitis 06946685 Active 2023 FRANCESCA PYLE 100 [facility], E [facility], [place], [address], [facility] - [facility] [place] 4 13:03:02 Sensorineur al hearing loss of bilateral ears 435736840 Active 2023 ADA SPEARS 100 [facility], E 100, [place], [address], [facility] - [facility] [place] 4 13:31:38 Feeling of lump in throat 985012333 Active 2023 GABRIELA PACHECO MD 100 [facility], E [facility], [place], [address], [facility] - [facility] [place] 4 14:05:35 Chronic sinusitis 13597129 Active 2023 GABRIELA PACHECO MD 100 [facility], E 100, [place], [address], [facility] - [facility] [place] 4 14:06:50 Perennial allergic rhinitis 240851169 Active 2024 Dell Arriaga 100 [facility],[address], [place], [address], [place] [facility] 14:32:29 Problem Notes None recorded. Procedures Surgical History Date Name Laterality Status Provider Name and Address Organization Details Recorded Time 02/22/20 25 Allergy Immunotherapy Injections completed RIO BRITO, RMA [address] [facility] [address], [place], [address], [place] [facility] [place] 02/21/2025 14:56:06 02/17/20 25 Allergy Immunotherapy Injections completed Dell Arriaga 100 [facility],[address], [place], [address], [place] [facility] 02/16/2025 14:09:07 02/03/20 25 Allergy Immunotherapy Injections completed RIO BRITO, RMA 100 [facility],JUDY [address] [place] [address], [address], [place] [facility] 02/02/2025 14:27:51 01/27/20 25 Allergy Immunotherapy Injections completed ABELARDO SANTOS RN 100 [facility],[address], [address], [place] [facility] 01/26/2025 14:42:41 01/19/20 25 Allergy Immunotherapy Injections completed RIO BRITO, RMA 100 [facility],JUDY [address] [place] [address], [address], [facility] - [facility] 01/18/2025 14:37:57 01/06/20 25 Allergy Immunotherapy Injections completed Dell Arriaga 100 [facility],JUDY [address] [place] [address], [address], [facility] - [facility] 01/05/2025 14:32:42 12/30/19 25 Allergy Immunotherapy Injections completed RIO BRITO, RMA 100 [facility],JUDY [address] [place] [address], [address], [facility] - [facility] 12/29/2024 10:48:31 12/20/19 25 Allergy Immunotherapy Injections completed ABELARDO SANTOS RN 100 [facility],JUDY [address] [place] [address], [address], [place] [facility] 12/19/2024 13:44:08 12/15/19 25 Allergy Immunotherapy Injections completed SHRUTHI WAHL, RMA [address], [place], [address], [place] [facility] [place] 12/14/2024 14:20:22 12/07/19 25 Allergy Immunotherapy Injections completed RIO BRITO, RMA [address], [place], [address], [place] [facility] [place] 12/06/2024 14:57:17 12/07/19 25 Fiberoptic Laryngoscopy (Comprehensive) completed GABRIELA LOMBARDO MD [address], [place], [address], [place] [facility] [place] 12/06/2024 13:31:06 12/01/19 25 Allergy Immunotherapy Injections completed RIO BRITO, RMA [address], [place], [address], [place] [facility] [place] 11/30/2024 15:11:48 11/23/19 25 Allergy Immunotherapy Injections completed Dell Bart 100 [facility],JUDY [facility], [place], [address], [place] [facility] [place] 11/22/2024 14:45:33 11/15/19 25 Allergy Immunotherapy Injections completed Dell Bart [address], [place], [address], [place] [facility] [place] 11/14/2024 14:11:37 11/11/19 25 Allergy Immunotherapy Injections completed Dell Bart 100 [facility],[address], [place], [address], [place] [facility] [place] 11/10/2024 13:36:45 11/04/19 25 Allergy Immunotherapy Injections completed Dell Bart [address], [place], [address], [place] [facility] [place] 11/03/2024 13:36:32 10/27/19 25 Allergy Immunotherapy Injections completed ABELARDO SANTOS RN [address], [place], [address], [place] [facility] [place] 10/26/2024 15:07:11 10/20/19 25 Allergy Immunotherapy Injections completed RIO CRISZEC, RMA [address], [place], [address], [place] [facility] [place] 10/19/2024 14:22:48 10/04/19 25 Allergy Immunotherapy Injections completed RIO KORZEC, RMA [address], [place], [address], [place] [facility] [place] 10/03/2024 15:03:51 09/28/19 25 Allergy Immunotherapy Injections completed RIO KORZEC, RMA [address], [place], [address], [place] [facility] [place] 09/27/2024 14:25:48 09/22/19 25 Allergy Immunotherapy Injections completed SHRUTHI WAHL, RMA [address], [place], [address], [place] [facility] [place] 09/21/2024 15:30:42 09/14/19 25 Allergy Immunotherapy Injections completed RIO CRISZEC, RMA [address], [place], [address], [place] [facility] [place] 09/13/2024 14:01:19 09/07/19 25 Allergy Immunotherapy Injections completed ABELARDO SANTOS RN [address], [place], [address], [place] [facility] [place] 09/06/2024 13:56:06 09/02/19 25 Allergy Immunotherapy Injections completed RIO CRISZEC, RMA [address], [place], [address], [place] [facility] [place] 09/01/2024 14:45:17 08/26/19 25 Allergy Immunotherapy Injections completed RIO KORZEC, RMA [address], [place], [address], [place] [facility] [place] 08/25/2024 13:32:12 08/18/19 25 Allergy Immunotherapy Injections completed SHRUTHI WAHL RMA [address], [place], [address], [place] [facility] 08/17/2024 13:36:56 08/12/19 25 Allergy Immunotherapy Injections completed ABELARDO SANTOS RN [address], [place], [address], [place] [facility] [place] 08/11/2024 13:47:58 08/02/19 25 Allergy Immunotherapy Injections completed ABELARDO SANTOS RN [address], [place], [address], [place] [facility] [place] 08/01/2024 14:50:37 07/29/19 25 Allergy Immunotherapy Injections completed ABELARDO SANTOS RN [address], [place], [address], [place] [facility] [place] 07/28/2024 14:17:25 07/21/19 25 Allergy Immunotherapy Injections completed FRANCESCA PYLE [address], [place], [address], [place] [facility] [place] 07/20/2024 14:39:33 07/14/19 25 Allergy Immunotherapy Injections completed ABELARDO SANTOS RN [address] [place] [address], [address], [place] [facility] [place] 07/13/2024 14:36:25 07/06/19 25 Allergy Immunotherapy Injections completed ABELARDO SANTOS RN [address] [place] [address], [address], [place] [facility] [place] 07/05/2024 14:04:57 06/30/19 25 Allergy Immunotherapy Injections completed RIO BRITO RMAlma [address], [place], [address], [place] [facility] [place] 06/29/2024 14:43:49 06/16/19 25 Allergy Immunotherapy Injections completed ROI BRITO RMAlma [address], [place], [address], [place] [facility] [place] 06/15/2024 14:25:11 06/10/19 25 Allergy Immunotherapy Injections completed RIO BRITO RMAlma [address], [place], [address], [place] [facility] [place] 06/09/2024 14:22:07 05/31/19 25 Allergy Immunotherapy Injections completed RIO BRITO, RMA 100 [facility],[address], [address], [place] [facility] [place] 05/30/2024 15:43:04 05/25/19 25 Allergy Immunotherapy Injections completed SHRUTHI WAHL A 100 [facility],[address], [address], [place] [facility] [place] 05/25/2024 14:21:31 05/11/19 25 Allergy Immunotherapy Injections completed RIO BRITO A 100 [facility],[address], [address], [place] [facility] [place] 05/11/2024 15:28:00 05/05/19 25 Allergy Immunotherapy Injections completed THA PYLEA 100 [facility],[address], [address], [place] [facility] 05/05/2024 14:11:35 04/28/19 25 Allergy Immunotherapy Injections completed FRANCESCA PYLE 100 [facility],[address], [address], [place] [facility] [place] 04/28/2024 13:25:07 04/17/19 25 Allergy Immunotherapy Injections completed ABELARDO SANTOS RN 100 [facility],[address], [address], [place] [facility] [place] 04/17/2024 15:10:42 03/15/20 24 Comp Audio with Tymps - 60561 & 32289 completed ADA SPEARS 100 [facility],[address], [address], [place] [facility] [place] 03/15/2024 13:31:32 03/15/20 24 Fiberoptic Laryngoscopy (Comprehensive) completed GABRIELA LOMBARDO MD 100 [facility],[address], [address], [facility] - [facility] [place] 03/15/2024 14:04:46 12/13/19 24 Allergy Testing-Full completed THA PYLEA 100 [facility],[address], [address], [facility] - [facility] 12/13/2023 14:11:35 tonsillectomy completed GABRIELA LOMBARDO MD 100 [facility],[place] [address], [place], [address], [facility] 11/26/2023 10:54:51 facial rhytidoplasty completed GABRIELA LOMBARDO MD 100 [facility],[place] [address], [place], [address], [facility] - [facility] 11/26/2023 10:58:58 Imaging Results None recorded. Procedure Notes None recorded. Medical Equipment None Reported. Allergies Allergen ID Allergen Name Allergen Category Reaction Reaction Severity Criticality Documentation Date Start Date Code Code System Note Provider Name and Address Organization Details Recorded Time 375206 Bactrim medicatio n other mild Not available 12/13/2023 45339 9 RxNorm FRANCESCA PYLE 100 [facility] 100[place], [place], [address], [facility] 4 13:07:20 813685 Product containin g penicilli n (product) medicatio n Not available Not available Not available 02/16/2025 35494 8001 SNOMED Not Available [employer] - prod 13:58:50 431430 sulfameth oxazole / trimethop rim medicatio n Not available Not available Not available 02/16/2025 06228 RxNorm Not Available [employer] - prod 13:58:50 Medications [...] azelastine 137 mcg (0.1 %) nasal spray Omer 2 sprays twice a day by intranasa [...] ICD10 Code Diagnosis IMO Codes Diagnosis Note [id number] RIO CK A Allergy 100 [facility], [address] [place] [address] 12/29/2024 10:08:08 12/29/2024 10:48:59 Perennial allergic rhinitis 151015814 J30.89 33053 SHRUTHI WAHL A Allergy 100 [facility],[address] [place] [address] 01/05/2025 14:19:33 01/05/2025 14:33:10 Perennial allergic rhinitis 643204085 J30.89 [id number] RIO STOVER, RMA Allergy 100 [facility],[address] [place] [address] 01/18/2025 14:24:44 01/18/2025 14:39:46 Perennial allergic rhinitis 232330636 J30.89 08737 SHRUTHI WAHL, RMA Allergy 100 [facility] 100 [facility] [place] [address] 01/26/2025 14:09:54 01/26/2025 14:43:09 Perennial allergic rhinitis 040695831 J30.89 Health Concerns Section Related Observation LastModified by Organization Detai ls LastModified Time None Recorded Concern Status LastModified by Organization Details LastModified Time None Recorded Payers Encounter Date Sequence Insurance Name Policy Number Policy Jaramillo Covered Member ID Jaramillo Member ID Guarantor Name 01/26/2025 1 [place]: [employer] Joceline Estes [id number] Joceline Estes 01/26/2025 2 [facility] ([facility] [id number] Joceline Estes [id number] Joceline Estes OBGyn Episode No OBEpisode recorded.
--- OUTSIDE RECORDS SUMMARY | 2025-02-21 16:40 | XMS_ITS | Data Portability ---
Author Organization [place] - [facility], Allergy Address [address] [address] Care Team Providers Care Adult Care Manager Name Role Phone SIM ANN Primary Care Provider Assessment Encounter Date Assessment Date Assessment LastModified by Organization Details LastModified Time 01/18/2025 01/18/2025 Visit With: FRANCESCA Ozuna Use of Antihistamine s: No If yes: Vial Test Change in medications: No If yes Increase in asthma symptoms If yes, inhaler use: Reaction to last injections: No If yes: Allergy Symptoms: Other: Missed: 1 week Dose Repeated Aware of Vial Test Aware: Notes: [email or web address] Not available 01/18/2025 14:39:24 01/26/2025 01/26/2025 Visit With: Shruthi Thompson Use of Antihistamine s: No If yes: Vial Test Change in medications: No If yes Increase in asthma symptoms If yes, inhaler use: Reaction to last injections: No If yes: Allergy Symptoms: Other: Missed: Dose Aware of Vial Test Aware: Notes: [email or web address] Not available 01/26/2025 14:42:50 02/02/2025 02/02/2025 Visit With: FRANCESCA Ozuna Use of Antihistamine s: No If yes: Vial Test Change in medications: No If yes Increase in asthma symptoms If yes, inhaler use: Reaction to last injections: No If yes: Allergy Symptoms: Other: Missed: Dose Aware of Vial Test Aware: Notes: [email or web address] Not available 02/02/2025 14:28:44 02/16/2025 02/16/2025 Visit With: Dell Bart, [place] Use of Antihistamine s: No If yes: Vial Test Change in medications: No If yes Increase in asthma symptoms No If yes, inhaler use: Reaction to last injections: No If yes: Allergy Symptoms: Other: Missed: 1 week Dose Aware of Vial Test Aware: Notes: Not available 02/16/2025 14:09:31 02/21/2025 02/21/2025 Visit With: Shruthi Thompson Use of Antihistamine s: No If yes: Vial Test Change in medications: No If yes Increase in asthma symptoms If yes, inhaler use: Reaction to last injections: No If yes: Allergy Symptoms: Other: Missed: Dose Aware of Vial Test Aware: Notes:will miss the next two weeks going to [facility] Not available 02/21/2025 14:56:33 Plan of Treatment [...] Address Organization Details Recorded Time Chronic rhinitis [id number] Active 2023 GABRIELA PACHECO MD [address] [place] [address], [address], [facility] - [facility] 4 10:59:27 Impacted cerumen of bilateral ears [id number] 108 Active 2023 GABRIELA PACHECO MD [address] [place] [address], [address], [facility] - [facility] 10:59:44 Non-allergi c rhinitis 032726569822 Active 2023 GABRIELA PACHECO MD [address] [place] [address] [address], [place], [address], [facility] - [facility] 4 11:00:55 Abnormal auditory perception 37740465 Active 2023 GABRIELA PACHECO MD 100 [facility], [place], [address], [facility] - [facility] 4 11:01:38 Allergic rhinitis 04903799 Active 2023 SHRUTHI THOMPSON, [facility] [address] [facility], [place], [address], [place] - [facility] 4 13:03:02 Sensorineur al hearing loss of bilateral ears 287681501 Active 2023 ADA SPEARS [address] [facility], [place], [address], [facility] - [facility] 4 13:31:38 Feeling of lump in throat 062748074 Active 2023 GABRIELA PACHECO MD 100 [facility],[address], [facility] [place], [address], [facility] - [facility] 4 14:05:35 Chronic sinusitis 26240345 Active 2023 GABRIELA PACHECO MD 100 [facility],[address], [place], [address], [facility] - [facility] 4 14:06:50 Perennial allergic rhinitis 335097837 Active 2024 Dell Arriaga [address], [place], [address], [facility] - [facility] 5 14:32:29 Problem Notes None recorded. Procedures Surgical History Date Name Laterality Status Provider Name and Address Organization Details Recorded Time 02/22/20 25 Allergy Immunotherapy Injections completed RIO BRITO, [facility] [address] [place],[facility] 100, [place], [address], [facility] - [facility] 02/21/2025 14:56:06 02/17/20 25 Allergy Immunotherapy Injections completed Dell Arriaga [address], [place], [address], [place] [facility] 02/16/2025 14:09:07 02/03/20 25 Allergy Immunotherapy Injections completed RIO BRITO, RMA [address], [place], [address], [place] [facility] 02/02/2025 14:27:51 01/27/20 25 Allergy Immunotherapy Injections completed ABELARDO SANTOS RN [address] [facility] [address], [place], [address], [place] [facility] 01/26/2025 14:42:41 01/19/20 25 Allergy Immunotherapy Injections completed RIO BRITO, RMA [address] [facility] [address] [place] [address], [address], [place] [facility] 01/18/2025 14:37:57 01/06/20 25 Allergy Immunotherapy Injections completed Dell Arriaga [address] [facility] [address], [place], [address], [place] [facility] 01/05/2025 14:32:42 12/30/19 25 Allergy Immunotherapy Injections completed RIO BRITO, RMA [address] [facility] [address] [facility], [place], [address], [place] [facility] 12/29/2024 10:48:31 12/20/19 25 Allergy Immunotherapy Injections completed ABELARDO SANTOS RN 100 [facility],[address] [place] [address], [address], [place] [facility] 12/19/2024 13:44:08 12/15/19 25 Allergy Immunotherapy Injections completed SHRUTHI THOMPSON A [address] [facility] [address], [place], [address], [place] [facility] 12/14/2024 14:20:22 12/07/19 25 Allergy Immunotherapy Injections completed RIO BRITO, RMA [address], [place], [address], [place] [facility] 12/06/2024 14:57:17 12/07/19 25 Fiberoptic Laryngoscopy (Comprehensive) completed GABRIELA LOMBARDO MD [address] [facility] [address] [facility], [place], [address], [place] [facility] 12/06/2024 13:31:06 12/01/19 25 Allergy Immunotherapy Injections completed RIO BRITO, RMA [address] [facility] [address], [place], [address], [place] [facility] 11/30/2024 15:11:48 11/23/19 25 Allergy Immunotherapy Injections completed Dell Bart [address] [facility] [address], [place], [address], [place] [facility] 11/22/2024 14:45:33 11/15/19 25 Allergy Immunotherapy Injections completed Dell Bart [address] [facility] [address], [place], [address], [place] [facility] 11/14/2024 14:11:37 11/11/19 25 Allergy Immunotherapy Injections completed Dell Bart [address] [facility] [address], [place], [address], [place] [facility] 11/10/2024 13:36:45 11/04/19 25 Allergy Immunotherapy Injections completed Dell Bart [address] [facility] [address] [place] [address], [address], [place] [facility] 11/03/2024 13:36:32 10/27/19 25 Allergy Immunotherapy Injections completed ABELARDO SANTOS RN 100 [facility],[address] [place] [address], [address], [place] [facility] 10/26/2024 15:07:11 10/20/19 25 Allergy Immunotherapy Injections completed RIO BRITO, RMA [address] [facility] [address], [place], [address], [place] [facility] 10/19/2024 14:22:48 10/04/19 25 Allergy Immunotherapy Injections completed RIO STOVERC, RMA [address] [facility] [address], [place], [address], [place] [facility] 10/03/2024 15:03:51 09/28/19 25 Allergy Immunotherapy Injections completed RIO STOVERC, RMA [address], [place], [address], [place] [facility] 09/27/2024 14:25:48 09/22/19 25 Allergy Immunotherapy Injections completed SHRUTHI THOMPSON, RMA [address], [place], [address], [place] [facility] 09/21/2024 15:30:42 09/14/19 25 Allergy Immunotherapy Injections completed RIO STOVERC, RMA [address], [place], [address], [place] [facility] 09/13/2024 14:01:19 09/07/19 25 Allergy Immunotherapy Injections completed ABELARDO SANTOS RN [address], [place], [address], [place] [facility] 09/06/2024 13:56:06 09/02/19 25 Allergy Immunotherapy Injections completed RIO STOVERC, RMA [address], [place], [address], [place] [facility] 09/01/2024 14:45:17 08/26/19 25 Allergy Immunotherapy Injections completed RIO STOVERC, RMA [address], [place], [address], [place] [facility] 08/25/2024 13:32:12 08/18/19 25 Allergy Immunotherapy Injections completed THA PYLEA [address], [place], [address], [place] [facility] 08/17/2024 13:36:56 08/12/19 25 Allergy Immunotherapy Injections completed ABELARDO SANTOS RN [address], [place], [address], [place] [facility] 08/11/2024 13:47:58 08/02/19 25 Allergy Immunotherapy Injections completed ABELARDO SANTOS RN [address], [place], [address], [place] [facility] 08/01/2024 14:50:37 07/29/19 25 Allergy Immunotherapy Injections completed ABELARDO SANTOS RN [address], [place], [address], [place] [facility] 07/28/2024 14:17:25 07/21/19 25 Allergy Immunotherapy Injections completed FRANCESCA PYLE [address], [place], [address], [place] [facility] 07/20/2024 14:39:33 07/14/19 25 Allergy Immunotherapy Injections completed ABELARDO SANTOS RN [address], [place], [address], [place] [facility] 07/13/2024 14:36:25 07/06/19 25 Allergy Immunotherapy Injections completed ABELARDO SANTOS RN [address] [place] [address], [address], [place] [facility] 07/05/2024 14:04:57 06/30/19 25 Allergy Immunotherapy Injections completed RIO BRITO RMA [address], [place], [address], [place] [facility] 06/29/2024 14:43:49 06/16/19 25 Allergy Immunotherapy Injections completed RIO BRITO RMA [address], [place], [address], [place] [facility] 06/15/2024 14:25:11 06/10/19 25 Allergy Immunotherapy Injections completed RIO BRITO RMA [address], [place], [address], [place] [facility] 06/09/2024 14:22:07 05/31/19 25 Allergy Immunotherapy Injections completed RIO BRITO RMA [address], [place], [address], [place] [facility] 05/30/2024 15:43:04 05/25/19 25 Allergy Immunotherapy Injections completed FRANCESCA PYLE [address], [place], [address], [place] [facility] 05/25/2024 14:21:31 05/11/19 25 Allergy Immunotherapy Injections completed RIO BRITO, A 100 [facility],[address], [address], [place] [facility] 05/11/2024 15:28:00 05/05/19 25 Allergy Immunotherapy Injections completed SHRUTHI THOMPSON A 100 [facility],[address]UD[address] [place] [address], [address], [place] [facility] 05/05/2024 14:11:35 04/28/19 25 Allergy Immunotherapy Injections completed SHRUTHI THOMPSON [facility] 100 [facility],[address]UD[address] [place] [address], [address], [place] [facility] 04/28/2024 13:25:07 04/17/19 25 Allergy Immunotherapy Injections completed ABELARDO SANTOS RN 100 [facility],[address], [address], [place] [facility] 04/17/2024 15:10:42 03/15/20 24 Comp Audio with Tymps - 11356 & 13262 completed ADA SPEARS 100 [facility],[address], [address], [place] [facility] 03/15/2024 13:31:32 03/15/20 24 Fiberoptic Laryngoscopy (Comprehensive) completed GABRIELA LOMBARDO MD 100 [facility],[address], [address], [place] [facility] 03/15/2024 14:04:46 12/13/19 24 Allergy Testing-Full completed SHRUTHI THOMPSON [facility] 100 [facility],[address], [address], [place] [facility] 12/13/2023 14:11:35 tonsillectomy completed GABRIELA LOMBARDO MD 100 [facility],[address], [address], [place] [facility] 11/26/2023 10:54:51 facial rhytidoplasty completed GABRIELA LOMBARDO MD 100 [facility],[address], [address], [facility] 11/26/2023 10:58:58 Imaging Results None recorded. Procedure Notes None recorded. Medical Equipment None Reported. Allergies Allergen ID Allergen Name Allergen Category Reaction Reaction Severity Criticality Documentation Date Start Date Code Code System Note Provider Name and Address Organization Details Recorded Time 015603 Bactrim medicatio n other mild Not available 12/13/2023 90573 9 RxNorm SHRUTHI THOMPSON, [address], [address], [facility] 4 13:07:20 345969 Product containin g penicilli n (product) medicatio n Not available Not available Not available 02/16/2025 78988 8001 SNOMED Not Available [employer] - prod 13:58:50 789696 sulfameth oxazole / trimethop rim medicatio n Not available Not available Not available 02/16/2025 82144 RxNorm Not Available [employer] - prod 13:58:50 Medications Name [...] azelastine 137 mcg (0.1 %) nasal spray Murphy 2 sprays twice a day by intranasa [...] ICD10 Code Diagnosis IMO Codes Diagnosis Note [id number] GABRIELA SHIN MD [facility] [address] [address] 11/26/2023 10:21:33 11/26/2023 11:10:58 Chronic rhinitis 97948984 J31.0 Impacted c erumen of bilateral ears 0054322991 552765 H61.23 Suggested 3 drops distilled vinegar in each ear twice weekly to prevent the buildup of cerumen Non-allergic rhinitis 31 17741295 01 J31.0 Abnormal a uditory perception 74797149 H93.293 check audio [id number] FRANCESCA PYLE Allergy [address] [place] [address] [place] [address] 12/13/2023 12:55:50 12/13/2023 15:26:03 Allergic rhinitis 22266380 J30.9 [id number] GABRIELA SHIN MD [facility] [address] [address] 03/15/2024 13:04:17 03/15/2024 15:23:03 Feeling of lump in throat 060631411 R09.89 Allergic rhinitis 283862 04 J30.9 Sensorineu ral hearing loss of bilateral ears 270840865 H90.3 Chronic sinusitis 547187 00 J32.9 [id number] CELSA LEIGH, ADA [facility] [address] [address] 03/15/2024 13:30:55 03/16/2024 06:57:53 Sensorineural hearing loss of bilateral ears 983110307 H90.3 Audiologic al evaluation results:Ri ght ear:Normal sloping at 6kHz to moderate sensorineu ral hearing loss with excellent word recognitio n.Left ear:Normal sloping at 6kHz to moderate sensorineu ral hearing loss with excellent word recognitio n.Tympanom etry:Right Ear:Type ALeft Ear:Type A [id number] ABELARDO SANTOS RN Allergy [address] [place] [address], [place] [address] 04/17/2024 14:39:48 04/17/2024 15:12:01 Perennial allergic rhinitis 005809098 J30.89 [id number] SHRUTHI THOMPSON [facility] Allergy [address] [place] [address], [place] [address] 04/28/2024 13:09:35 04/28/2024 13:25:34 Perennial allergic rhinitis 415764397 J30.89 [id number] SHRUTHI THOMPSON [facility] Allergy [address] [place] [address] 05/05/2024 13:47:24 05/05/2024 14:13:10 Perennial allergic rhinitis 922758319 J30.89 [id number] [facility] Allergy [address] [place] [address] 100 [facility] [address] 05/11/2024 15:02:28 05/11/2024 15:28:30 Perennial allergic rhinitis 482292254 J30.89 [id number] [facility] Allergy [address] [place] [address] 100 [facility] [address] 05/25/2024 14:10:12 05/25/2024 14:44:03 Perennial allergic rhinitis 522437767 J30.89 [id number] [facility] Allergy [address] [place] [address] 05/30/2024 15:31:34 05/30/2024 15:43:32 Perennial allergic rhinitis 511957765 J30.89 [id number] [facility], RMA Allergy 100 [facility],[place] [address] [place] [address] 06/09/2024 14:15:07 06/09/2024 14:22:35 Perennial allergic rhinitis 621876022 J30.89 [id number] [facility], RMA Allergy 100 [facility],[place] [address] [place] [address] 06/15/2024 14:19:17 06/15/2024 14:25:32 Perennial allergic rhinitis 279789606 J30.89 [id number] [facility], RMA Allergy 100 [facility],[place] [address] [place] [address] 06/29/2024 14:27:19 06/29/2024 14:44:17 Perennial allergic rhinitis 432277348 J30.89 [id number] [facility], A Allergy [address] [place] [address],[place] [address] [place] [address] 07/05/2024 13:49:56 07/05/2024 14:05:29 Perennial allergic rhinitis 105676594 J30.89 [id number] ABELARDO SANTOS RN Allergy [address] [place] [address],[place] [address] [place] [address] 07/13/2024 14:31:26 07/13/2024 14:36:58 Perennial allergic rhinitis 550500320 J30.89 [id number] ABELARDO SANTOS RN Allergy [address] [place] [address],[place] [address] [place] [address] 07/20/2024 14:24:55 07/20/2024 14:40:05 Perennial allergic rhinitis 144447816 J30.89 [id number] ABELARDO SANTOS RN Allergy [address] [place] [address],[place] [address] [place] [address] 07/28/2024 14:08:31 07/28/2024 14:17:53 Perennial allergic rhinitis 308125304 J30.89 [id number] ABELARDO SANTOS RN Allergy [address] [place] [address],[place] [address] [place] [address] 08/01/2024 14:42:32 08/01/2024 14:51:06 Perennial allergic rhinitis 878374807 J30.89 [id number] ABELARDO SANTOS RN Allergy [address] [place] [address] it[address] [place] [address] 08/11/2024 13:13:26 08/11/2024 13:48:26 Perennial allergic rhinitis 517916718 J30.89 [id number] SHRUTHI THOMPSON [facility] Allergy [address] [place] [address], it[address] [place] [address] 08/17/2024 13:18:18 08/17/2024 13:37:29 Perennial allergic rhinitis 780289004 J30.89 [id number] SHRUTHI THOMPSON [facility] Allergy [address] [place] [address] it[address] [place] [address] 08/25/2024 13:06:50 08/25/2024 13:32:44 Perennial allergic rhinitis 129925822 J30.89 [id number] SHRUTHI THOMPSON [facility] Allergy [address] [place] [address] it[address] [place] [address] 09/01/2024 14:02:32 09/01/2024 14:46:10 Perennial allergic rhinitis 611072269 J30.89 [id number] ABELARDO SANTOS RN Allergy [address] [place], [place] [address]e [address] [place] [address] 09/06/2024 13:50:38 09/06/2024 13:56:28 Perennial allergic rhinitis 657807515 J30.89 [id number] RIO STOVER, A Allergy [address] [place] [address], [address] [place] [address] 09/13/2024 13:47:00 09/13/2024 14:02:03 Perennial allergic rhinitis 355394503 J30.89 [id number] SHRUTHI THOMPSON [facility] Allergy [address] [place] [address] it[address] [place] [address] 09/21/2024 15:06:08 09/21/2024 15:31:01 Perennial allergic rhinitis 326954425 J30.89 [id number] RIO STOVER, A Allergy [address] [place] [address],[place] [address] [place] [address] 09/27/2024 14:17:08 09/27/2024 14:26:10 Perennial allergic rhinitis 173567443 J30.89 [id number] RIO CK, RMA Allergy 100 [facility],[place] [address] [place] [address] 10/03/2024 14:53:14 10/03/2024 15:04:29 Perennial allergic rhinitis 066540560 J30.89 [id number] RIO CK, A Allergy 100 [facility],[place] [address] [place] [address] 10/19/2024 14:17:04 10/19/2024 14:23:13 Perennial allergic rhinitis 104474019 J30.89 [id number] [facility], A Allergy 100 [facility],[place] [address] [place] [address] 10/26/2024 15:01:12 10/26/2024 15:07:43 Perennial allergic rhinitis 477779524 J30.89 [id number] [facility], A Allergy 100 [facility],[place] [address] [place] [address] 11/03/2024 13:24:25 11/03/2024 13:37:02 Perennial allergic rhinitis [id number] J30.89 [id number] ABELARDO SANTOS RN Allergy [address] [place] [address],[place] [address] [place] [address] 11/10/2024 13:20:20 11/10/2024 13:37:29 Perennial allergic rhinitis 711899331 J30.89 [id number] ABELARDO SANTOS RN Allergy [address] [place] [address],[place] [address] [place] [address] 11/14/2024 13:26:34 11/14/2024 14:12:17 Perennial allergic rhinitis 724601875 J30.89 [id number] SHRUTHI THOMPSON, A Allergy 100 [facility],[place] [address] [place] [address] 11/22/2024 14:35:11 11/22/2024 14:46:12 Perennial allergic rhinitis 773439029 J30.89 [id number] [facility], [facility] Allergy 100 [facility],[place] [address] [place] [address] 11/30/2024 14:51:01 11/30/2024 15:12:16 Perennial allergic rhinitis 071954459 J30.89 [id number] GABRIELA SHIN MD [facility] 100 [place] [address] 12/06/2024 12:51:12 12/06/2024 13:31:12 Sensorineural hearing loss of bilateral ears 087122597 H90.3 Perennial allergic rhinitis 755492692 J30.89 Feeling of lump in throat 668042518 R09.89 [id number] SHRUTHI THOMPSON A Allergy [address] [place] [address], it[address] 100 [facility] [place] [address] 12/06/2024 13:37:15 12/06/2024 14:58:04 Perennial allergic rhinitis 564938665 J30.89 [id number] SHRUTHI THOMPSON A Allergy [address] [place], [place] [address]e 100 [facility] [address] 12/14/2024 13:09:31 12/14/2024 14:20:48 Perennial allergic rhinitis 655932555 J30.89 [id number] SHRUTHI THOMPSON A Allergy [address] [place] [address],[facility] 100 [facility] [place] [address] 12/19/2024 13:33:44 12/19/2024 13:44:24 Perennial allergic rhinitis 933690390 J30.89 [id number] RIO CK, RMA Allergy [address] [place] [address],[place] [address] [place] [address] 12/29/2024 10:08:08 12/29/2024 10:48:59 Perennial allergic rhinitis 758351130 J30.89 [id number] SHRUTHI THOMPSON A Allergy 100 [facility], it[address] 100 [facility] [place] [address] 01/05/2025 14:19:33 01/05/2025 14:33:10 Perennial allergic rhinitis 528487090 J30.89 [id number] RIO CK, RMA Allergy 100 [facility],[place] [address] [place] [address] 01/18/2025 14:24:44 01/18/2025 14:39:46 Perennial allergic rhinitis [id number] J30.89 [id number] SHRUTHI THOMPSON, [facility] Allergy [address] [facility] [place] [address] 01/26/2025 14:09:54 01/26/2025 14:43:09 Perennial allergic rhinitis [id number] J30.89 [id number] RIO STOVER, A Allergy 100 [facility],[address] [place] [address] 02/02/2025 14:10:57 02/02/2025 14:29:05 Perennial allergic rhinitis [id number] J30.89 67791 Dell Arriaga Allergy 100 [facility],[address] [place] [address] 02/16/2025 13:58:16 02/16/2025 14:09:48 Perennial allergic rhinitis [id number] J30.89 41705 SHRUTHI THOMPSON, [facility] Allergy 100 [facility],[address] [facility] [address] 02/21/2025 14:15:12 02/21/2025 14:56:57 Perennial allergic rhinitis [id number] J30.89 Health Concerns Section Related Observation LastModified by Organization Detai ls LastModified Time None Recorded Concern Status LastModified by Organization Details LastModified Time None Recorded Advance Directives Directive None Recorded Payers Insurance Date Sequence Insurance Name Policy Number Policy Jaramillo Covered Member ID Jaramillo Member ID Guarantor Name 05/05/2024 2 [facility] [id number] Joceline Estes [id number] Joceline Estes 02/16/2025 1 [place] [employer] Joceline Estes [id number] Joceline Estes 07/13/2024 2 [facility] (HMO) Joceline Estes [id number] Joceline Estes 05/08/2024 2 [facility] (O) [id number] Joceline Estes [id number] Joceline Estes 02/16/2025 2 [place] [id number] Joceline Estes [id number] Joceline Estes OBGyn Episode No OBEpisode recorded.
--- OUTSIDE RECORDS SUMMARY | 2025-02-21 16:40 | XMS_ITS | Continuity of Care Document ---
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- Allergy f-up 6mon 2025 02:00P M SATISH [...] Address Organization Details Recorded Time Chronic rhinitis 90444857 Active 2023 GABRIELA PACHECO MD [address] [facility],[place] [address], [place], [address] [place] [facility] 4 10:59:27 Impacted cerumen of bilateral ears [id number] 108 Active 2023 GABRIELA PACHECO MD [facility], [place], [address], [place] [facility] 4 10:59:44 Non-allergi c rhinitis [id number] Active 2023 GABRIELA PACHECO MD [address] [facility], [place], [address], [place] [facility] 4 11:00:55 Abnormal auditory perception 52969399 Active 2023 GABRIELA PACHECO MD [facility], [place], [address], [place] [facility] 4 11:01:38 Allergic rhinitis 44302537 Active 2023 FRANCESCA PYLE [address] [facility], [place], [address], [place] [facility] 4 13:03:02 Sensorineur al hearing loss of bilateral ears 007949016 Active 2023 ADA SPEARS [address], [place], [address], [place] [facility] 4 13:31:38 Feeling of lump in throat 152536007 Active 2023 GABRIELA PACHECO MD [address] [facility], [place], [address], [place] [facility] 4 14:05:35 Chronic sinusitis 04584781 Active 2023 GABRIELA PACHECO MD [address] [facility], [place], [address], [place] [facility] 4 14:06:50 Perennial allergic rhinitis 301558789 Active 2024 Dell Bart [address], [place], [address], [place] [facility] 14:32:29 Problem Notes None recorded. Procedures Surgical History Date Name Laterality Status Provider Name and Address Organization Details Recorded Time 02/22/20 25 Allergy Immunotherapy Injections completed RIO CKC, RMA [address] [facility] [address], [place], [address], [place] [facility] 02/21/2025 14:56:06 02/17/20 25 Allergy Immunotherapy Injections completed Dell Bart [address] [facility] [address], [place], [address], [place] [facility] 02/16/2025 14:09:07 02/03/20 25 Allergy Immunotherapy Injections completed RIO STOVERC, RMA [address] [facility] [address] [place] [address], [address], [place] [facility] 02/02/2025 14:27:51 01/27/20 25 Allergy Immunotherapy Injections completed ABELARDO SANTOS RN [address] [facility],[address], [address], [place] [facility] 01/26/2025 14:42:41 01/19/20 25 Allergy Immunotherapy Injections completed RIO STOVERC, RMA [address] [facility] [address] [place] [address], [address], [place] [facility] 01/18/2025 14:37:57 01/06/20 25 Allergy Immunotherapy Injections completed Dell Bart [address] [facility], [place], [address], [place] [facility] 01/05/2025 14:32:42 12/30/19 25 Allergy Immunotherapy Injections completed RIO STOVERC, RMA [address] [facility],[address] [place] [address], [address], [place] [facility] 12/29/2024 10:48:31 12/20/19 25 Allergy Immunotherapy Injections completed ABELARDO SANTOS RN [facility],[address], [address], [place] [facility] 12/19/2024 13:44:08 12/15/19 25 Allergy Immunotherapy Injections completed RADHA THOMPSON, [facility] [address] [facility] [address] [facility], [place], [address], [place] [facility] 12/14/2024 14:20:22 12/07/19 25 Allergy Immunotherapy Injections completed RIO BRITO, RMA [address] [facility] [address], [place], [address], [place] [facility] 12/06/2024 14:57:17 12/07/19 25 Fiberoptic Laryngoscopy (Comprehensive) completed GABRIELA LOMBARDO MD [address] [facility],[place] [address], [place], [address], [place] [facility] 12/06/2024 13:31:06 12/01/19 25 Allergy Immunotherapy Injections completed RIO BRITO, RMA [address] [facility] [address] [facility], [place], [address], [place] [facility] 11/30/2024 15:11:48 11/23/19 25 Allergy Immunotherapy Injections completed Dell Bart [address] [facility] [facility], [place], [address], [place] [facility] 11/22/2024 14:45:33 11/15/19 25 Allergy Immunotherapy Injections completed Dell Bart [address] [facility] [address], [place], [address], [place] [facility] 11/14/2024 14:11:37 11/11/19 25 Allergy Immunotherapy Injections completed Dell Bart [facility] 100, [place], [address], [place] [facility] 11/10/2024 13:36:45 11/04/19 25 Allergy Immunotherapy Injections completed Dell Bart [address] [facility], [place], [address], [place] [facility] 11/03/2024 13:36:32 10/27/19 25 Allergy Immunotherapy Injections completed ABELARDO SANTOS RN [facility], [place], [address], [place] [facility] 10/26/2024 15:07:11 10/20/19 25 Allergy Immunotherapy Injections completed RIO CRISZEC, RMA [address], [place], [address], [place] [facility] 10/19/2024 14:22:48 10/04/19 25 Allergy Immunotherapy Injections completed RIO KORZEC, RMA [address], [place], [address], [place] [facility] 10/03/2024 15:03:51 09/28/19 25 Allergy Immunotherapy Injections completed RIO KORZEC, RMA [address], [place], [address], [place] [facility] 09/27/2024 14:25:48 09/22/19 25 Allergy Immunotherapy Injections completed RADHA THOMPSNO, RMA [address], [place], [address], [place] [facility] 09/21/2024 15:30:42 09/14/19 25 Allergy Immunotherapy Injections completed RIO STOVERC, RMA [address], [place], [address], [place] [facility] 09/13/2024 14:01:19 09/07/19 25 Allergy Immunotherapy Injections completed ABELARDO SANTOS RN [address], [place], [address], [place] [facility] 09/06/2024 13:56:06 09/02/19 25 Allergy Immunotherapy Injections completed RIO STVOERC, RMA [address], [place], [address], [place] [facility] 09/01/2024 14:45:17 08/26/19 25 Allergy Immunotherapy Injections completed RIO KORZEC, RMA [address], [place], [address], [place] [facility] 08/25/2024 13:32:12 08/18/19 25 Allergy Immunotherapy Injections completed RADHA THOMPSON RMA [address], [place], [address], [place] [facility] 08/17/2024 13:36:56 08/12/19 25 Allergy Immunotherapy Injections completed ABELARDO SANTOS RN [address], [place], [address], [place] [facility] 08/11/2024 13:47:58 08/02/19 25 Allergy Immunotherapy Injections completed ABELARDO SANTOS RN [address], [place], [address], [place] [facility] 08/01/2024 14:50:37 07/29/19 25 Allergy Immunotherapy Injections completed ABELARDO SANTOS RN [address] [facility], [place], [address], [place] [facility] 07/28/2024 14:17:25 07/21/19 25 Allergy Immunotherapy Injections completed FRANCESCA PYLE [address] [place] [address], [address], [place] [facility] 07/20/2024 14:39:33 07/14/19 25 Allergy Immunotherapy Injections completed ABELARDO SANTOS RN [address] [facility] [address] [place] [address], [address], [place] [facility] 07/13/2024 14:36:25 07/06/19 25 Allergy Immunotherapy Injections completed ABELARDO SANTOS RN [address], [place], [address], [place] [facility] 07/05/2024 14:04:57 06/30/19 25 Allergy Immunotherapy Injections completed RIO BRITO RMAlma [address], [place], [address], [place] [facility] 06/29/2024 14:43:49 06/16/19 25 Allergy Immunotherapy Injections completed RIO BRITO RMA [address], [place], [address], [place] [facility] 06/15/2024 14:25:11 06/10/19 25 Allergy Immunotherapy Injections completed RIO BRITO RMAlma [address], [place], [address], [place] [facility] 06/09/2024 14:22:07 05/31/19 25 Allergy Immunotherapy Injections completed RIO BRITO RMA [facility],[address], [address], [place] [facility] 05/30/2024 15:43:04 05/25/19 25 Allergy Immunotherapy Injections completed THA PYLEA [facility],[address], [address], [place] [facility] 05/25/2024 14:21:31 05/11/19 25 Allergy Immunotherapy Injections completed RIO BRITO RMA [address] [facility],[address], [address], [place] [facility] 05/11/2024 15:28:00 05/05/19 25 Allergy Immunotherapy Injections completed FRANCESCA PYLE [address], [address], [place] [facility] 05/05/2024 14:11:35 04/28/19 25 Allergy Immunotherapy Injections completed FRANCESCA PYLE [address] [facility],[address], [address], [place] [facility] 04/28/2024 13:25:07 04/17/19 25 Allergy Immunotherapy Injections completed ABELARDO SANTOS RN [address] [facility],[address], [address], [place] [facility] 04/17/2024 15:10:42 03/15/20 24 Comp Audio with Tymps - 11393 & 13573 completed ADA SPEARS [address], [address], [place] [facility] 03/15/2024 13:31:32 03/15/20 24 Fiberoptic Laryngoscopy (Comprehensive) completed GABRIELA LOMBARDO MD [address] [facility],[address], [address], [place] [facility] 03/15/2024 14:04:46 12/13/19 24 Allergy Testing-Full completed FRANCESCA PYLE [address], [address], [facility] - [facility] 12/13/2023 14:11:35 tonsillectomy completed GABRIELA LOMBARDO MD [address], [address], [facility] 11/26/2023 10:54:51 facial rhytidoplasty completed GABRIELA LOMBARDO MD [address],[address], [address], [facility] - [facility] 11/26/2023 10:58:58 Imaging Results None recorded. Procedure Notes None recorded. Medical Equipment None Reported. Allergies Allergen ID Allergen Name Allergen Category Reaction Reaction Severity Criticality Documentation Date Start Date Code Code System Note Provider Name and Address Organization Details Recorded Time 518898 Bactrim medicatio n other mild Not available 12/13/2023 84176 9 RxNorm FRANCESCA PYLE 100 [facility] 100[place], [place], [address], [facility] 4 13:07:20 202748 Product containin g penicilli n (product) medicatio n Not available Not available Not available 02/16/2025 31159 8001 SNOMED Not Available [employer] - prod 13:58:50 772615 sulfameth oxazole / trimethop rim medicatio n Not available Not available Not available 02/16/2025 42652 RxNorm Not Available [employer] - prod 13:58:50 Medications [...] azelastine 137 mcg (0.1 %) nasal spray [place] 2 sprays twice a day by intranasa [...] ICD10 Code Diagnosis IMO Codes Diagnosis Note [id number] RADHA THOMPSON [facility] Allergy 100 [facility] 100 [place] [address] 12/19/2024 13:33:44 12/19/2024 13:44:24 Perennial allergic rhinitis [id number] J30.89 [id number] [facility] Allergy [address], [address] [facility] [place] [address] 12/29/2024 10:08:08 12/29/2024 10:48:59 Perennial allergic rhinitis 061863660 J30.89 56152 RADHA THOMPSON [facility] Allergy [address],[place] [address] [facility] [place] [address] 01/05/2025 14:19:33 01/05/2025 14:33:10 Perennial allergic rhinitis 452374303 J30.89 78188 RIO CK, RMA Allergy [address],[facility] 100 [facility] [place] [address] 01/18/2025 14:24:44 01/18/2025 14:39:46 Perennial allergic rhinitis 510029346 J30.89 Health Concerns Section Related Observation LastModified by Organization Detai ls LastModified Time None Recorded Concern Status LastModified by Organization Details LastModified Time None Recorded Payers Encounter Date Sequence Insurance Name Policy Number Policy Jaramillo Covered Member ID Jaramillo Member ID Guarantor Name 01/18/2025 1 [place] [employer] Joceline Estes [id number] Joceline Estes 01/18/2025 2 [facility] ([place] [id number] Joceline Estes [id number] Joceline Estes OBGyn Episode No OBEpisode recorded.
--- OUTSIDE RECORDS SUMMARY | 2025-02-21 16:41 | XMS_ITS | Continuity of Care Document ---
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 Role Phone SIM ANN Primary Care Provider Assessment Encounter Date Assessment Date Assessment LastModified by Organization Details LastModified Time 01/05/2025 01/05/2025 Visit With: Shruthi Wahl Use of Antihistamine s: No If yes: Vial Test Change in medications: No If yes Increase in asthma symptoms No If yes, inhaler use: Reaction to last injections: No If yes: Allergy Symptoms: Other: Missed: Dose Aware of Vial Test Aware: Notes: [email or web address] Not available 01/05/2025 14:32:54 Plan of Treatment Reminders Order Date Submit Date Provider Last Modified By Organization Details Last Modified Time Details Appointments Allergy Shot 2024 02:00P M [facility] Not available Not available Not available Hearing Test 2025 01:30P M Hearing Test Not available Not available Not available Josetoribio hed- Allergy f-up 6mon 2025 02:00P M [...] Address Organization Details Recorded Time Chronic rhinitis 50112132 Active 2023 GABRIELA PACHECO MD 100 [facility] 100, [place], [address], [place] [facility] 4 10:59:27 Impacted cerumen of bilateral ears [id number] 108 Active 2023 GABRIELA PACHECO MD 100 [facility],[place] [address], [facility] [place], [address], [facility] - [facility] [place] 4 10:59:44 Non-allergi c rhinitis [id number] Active 2023 GABRIELA PACHECO MD 100 [facility] E [facility], [facility] [place], [address], [facility] - [facility] [place] 4 11:00:55 Abnormal auditory perception 36191952 Active 2023 GABRIELA PACHECO MD 100 [facility] E [facility], [employer] [place], [address], [facility] - [facility] [place] 4 11:01:38 Allergic rhinitis 24036146 Active 2023 FRANCESCA PYLE 100 [facility], E [facility], [facility] [place], [address], [facility] - [facility] [place] 4 13:03:02 Sensorineur al hearing loss of bilateral ears 579275703 Active 2023 ADA SPEARS 100 [facility], E 100, [place], [address], [facility] - [facility] [place] 4 13:31:38 Feeling of lump in throat 292078203 Active 2023 GABRIELA PACHECO MD 100 [facility], [address] 100, [employer] [place], [address], [facility] - [facility] [place] 4 14:05:35 Chronic sinusitis 76528916 Active 2023 GABRIELA PACHECO MD 100 [facility], E 100, [place] [place], [address], [facility] - [facility] [place] 4 14:06:50 Perennial allergic rhinitis 204367538 Active 2024 Dell Bart [address], [place], [address], [place] [facility] [place] 14:32:29 Problem Notes None recorded. Procedures Surgical History Date Name Laterality Status Provider Name and Address Organization Details Recorded Time 02/22/20 25 Allergy Immunotherapy Injections completed RIO CKC, RMA [address] [facility] [address], [place], [address], [place] [facility] [place] 02/21/2025 14:56:06 02/17/20 25 Allergy Immunotherapy Injections completed Dell Bart 100 [facility], [place], [address], [place] [facility] [place] 02/16/2025 14:09:07 02/03/20 25 Allergy Immunotherapy Injections completed RIO STOVERC, RMA 100 [facility] [place],[address], [address], [place] [facility] 02/02/2025 14:27:51 01/27/20 25 Allergy Immunotherapy Injections completed ABELARDO SANTOS RN 100 [facility],[address], [address], [place] [facility] [place] 01/26/2025 14:42:41 01/19/20 25 Allergy Immunotherapy Injections completed RIO BRITO, RMA 100 [facility] [place] [place],[address] [place] [address], [address], [facility] - [facility] 01/18/2025 14:37:57 01/06/20 25 Allergy Immunotherapy Injections completed Dell Chavarriaos 100 [facility],[address]UD[address] [place] [address], [address], [facility] - [facility] [place] 01/05/2025 14:32:42 12/30/19 25 Allergy Immunotherapy Injections completed RIO STOVERC, RMA 100 [facility] [place] [place],[address] [place] [address], [address], [facility] - [facility] 12/29/2024 10:48:31 12/20/19 25 Allergy Immunotherapy Injections completed ABELARDO SANTOS RN 100 [facility],[address] [place] [address], [address], [place] [facility] 12/19/2024 13:44:08 12/15/19 25 Allergy Immunotherapy Injections completed SHRUTHI WAHL, RMA [address] [facility] [address], [place], [address], [place] [facility] [place] 12/14/2024 14:20:22 12/07/19 25 Allergy Immunotherapy Injections completed RIO BRITO, RMA [address] [facility] [address], [place], [address], [place] [facility] [place] 12/06/2024 14:57:17 12/07/19 25 Fiberoptic Laryngoscopy (Comprehensive) completed GABRIELA LOMBARDO MD [address] [facility] [address], [place], [address], [place] [facility] [place] 12/06/2024 13:31:06 12/01/19 25 Allergy Immunotherapy Injections completed RIO BRITO, RMA [address] [facility] [address], [place], [address], [place] [facility] [place] 11/30/2024 15:11:48 11/23/19 25 Allergy Immunotherapy Injections completed Dell Bart 100 [facility],[address], [place], [address], [place] [facility] [place] 11/22/2024 14:45:33 11/15/19 25 Allergy Immunotherapy Injections completed Dell Bart [address] [facility] [address], [place], [address], [place] [facility] [place] 11/14/2024 14:11:37 11/11/19 25 Allergy Immunotherapy Injections completed Dell Bart 100 [facility],[address], [place], [address], [place] [facility] [place] 11/10/2024 13:36:45 11/04/19 25 Allergy Immunotherapy Injections completed Dell Bart 100 [facility],[address], [place], [address], [place] [facility] [place] 11/03/2024 13:36:32 10/27/19 25 Allergy Immunotherapy Injections completed ABELARDO SANTOS RN [address] [facility] [address], [place], [address], [place] [facility] [place] 10/26/2024 15:07:11 10/20/19 25 Allergy Immunotherapy Injections completed RIO CRISZEC, RMA [address], [place], [address], [place] [facility] [place] 10/19/2024 14:22:48 10/04/19 25 Allergy Immunotherapy Injections completed RIO KORZEC, RMA [address], [place], [address], [place] [facility] [place] 10/03/2024 15:03:51 09/28/19 25 Allergy Immunotherapy Injections completed RIO CRISZEC, RMA [address], [place], [address], [place] [facility] [place] 09/27/2024 14:25:48 09/22/19 25 Allergy Immunotherapy Injections completed SHRUTHI WAHL, RMA [address], [place], [address], [place] [facility] [place] 09/21/2024 15:30:42 09/14/19 25 Allergy Immunotherapy Injections completed RIO CRISZEC, RMA [address], [place], [address], [place] [facility] [place] 09/13/2024 14:01:19 09/07/19 25 Allergy Immunotherapy Injections completed ABELARDO SANTOS RN [address], [place], [address], [place] [facility] [place] 09/06/2024 13:56:06 09/02/19 25 Allergy Immunotherapy Injections completed RIO CRISZEC, RMA [address], [place], [address], [place] [facility] [place] 09/01/2024 14:45:17 08/26/19 25 Allergy Immunotherapy Injections completed RIO KORZEC, RMA [address], [place], [address], [place] [facility] [place] 08/25/2024 13:32:12 08/18/19 25 Allergy Immunotherapy Injections completed SHRUTHI WAHL RMA [address], [place], [address], [place] [facility] [place] 08/17/2024 13:36:56 08/12/19 25 Allergy Immunotherapy Injections completed ABELARDO SANTOS RN [address], [place], [address], [place] [facility] [place] 08/11/2024 13:47:58 08/02/19 25 Allergy Immunotherapy Injections completed ABELARDO SANTOS RN [address], [place], [address], [place] [facility] [place] 08/01/2024 14:50:37 07/29/19 25 Allergy Immunotherapy Injections completed ABELARDO SANTOS RN [address], [place], [address], [place] [facility] [place] 07/28/2024 14:17:25 07/21/19 25 Allergy Immunotherapy Injections completed FRANCESCA PYLE [address] [facility] [address], [place], [address], [place] [facility] [place] 07/20/2024 14:39:33 07/14/19 25 Allergy Immunotherapy Injections completed ABELARDO SANTOS RN [address] [facility] [address] [facility], [place], [address], [place] [facility] [place] 07/13/2024 14:36:25 07/06/19 25 Allergy Immunotherapy Injections completed ABELARDO SANTOS RN [address] [facility] [address] [place] [address], [address], [place] [facility] [place] 07/05/2024 14:04:57 06/30/19 25 Allergy Immunotherapy Injections completed RIO BRITO RMAlma [address], [place], [address], [place] [facility] [place] 06/29/2024 14:43:49 06/16/19 25 Allergy Immunotherapy Injections completed RIO BRITO RMAlma [address], [place], [address], [place] [facility] [place] 06/15/2024 14:25:11 06/10/19 25 Allergy Immunotherapy Injections completed RIO BRITO RMAlma [address], [place], [address], [place] [facility] [place] 06/09/2024 14:22:07 05/31/19 25 Allergy Immunotherapy Injections completed RIO BRITO, RMA 100 [facility],[address], [address], [place] [facility] [place] 05/30/2024 15:43:04 05/25/19 25 Allergy Immunotherapy Injections completed SHRUTHI WAHL RMA 100 [facility],[address], [address], [place] [facility] [place] 05/25/2024 14:21:31 05/11/19 25 Allergy Immunotherapy Injections completed RIO BRITO RMA 100 [facility],[address], [address], [place] [facility] [place] 05/11/2024 15:28:00 05/05/19 25 Allergy Immunotherapy Injections completed FRANCESCA PYLE 100 [facility],[address], [address], [place] [facility] [place] 05/05/2024 14:11:35 04/28/19 25 Allergy Immunotherapy Injections completed FRANCESCA PYLE 100 [facility],[address], [address], [place] [facility] [place] 04/28/2024 13:25:07 04/17/19 25 Allergy Immunotherapy Injections completed ABELARDO SANTOS RN 100 [facility],[address], [address], [place] [facility] [place] 04/17/2024 15:10:42 03/15/20 24 Comp Audio with Tymps - 07882 & 72873 completed ADA SPEARS 100 [facility],[address], [address], [place] [facility] [place] 03/15/2024 13:31:32 03/15/20 24 Fiberoptic Laryngoscopy (Comprehensive) completed GABRIELA LOMBARDO MD 100 [facility],[address], [address], [facility] - [facility] [place] 03/15/2024 14:04:46 12/13/19 24 Allergy Testing-Full completed FRANCESCA PYLE 100 [facility],[address], [address], [facility] - [facility] 12/13/2023 14:11:35 tonsillectomy completed GABRIELA LOMBARDO MD 100 [facility],[address], [address], [facility] 11/26/2023 10:54:51 facial rhytidoplasty completed GABRIELA LOMBARDO MD 100 [facility],[address], [address], [facility] - [facility] 11/26/2023 10:58:58 Imaging Results None recorded. Procedure Notes None recorded. Medical Equipment None Reported. Allergies Allergen ID Allergen Name Allergen Category Reaction Reaction Severity Criticality Documentation Date Start Date Code Code System Note Provider Name and Address Organization Details Recorded Time 224222 Bactrim medicatio n other mild Not available 12/13/2023 03860 9 RxNorm FRANCESCA PYLE 100 [facility] 100, [place], [address], [facility] 13:07:20 249309 Product containin g penicilli n (product) medicatio n Not available Not available Not available 02/16/2025 48480 8001 SNOMED Not Available [facility] External Data Service - prod 5 13:58:50 058154 sulfameth oxazole / trimethop rim medicatio n Not available Not available Not available 02/16/2025 04669 RxNorm Not Available [facility] External Data Service - prod 13:58:50 Medications [...] azelastine 137 mcg (0.1 %) nasal spray Garretson 2 sprays twice a day by intranasa [...] ICD10 Code Diagnosis IMO Codes Diagnosis Note [id number] GABRIELA SHIN MD [facility] [address] [address] 12/06/2024 12:51:12 12/06/2024 13:31:12 Sensorineural hearing loss of bilateral ears 798563697 H90.3 Perennial allergic rhinitis 830523043 J30.89 Feeling of lump in throat 031316320 R09.89 [id number] FRANCESCA PYLE Allergy [address] [place] [address] 12/06/2024 13:37:15 12/06/2024 14:58:04 Perennial allergic rhinitis 946387892 J30.89 [id number] FRANCESCA PYLE Allergy [address] [place] [address], [place] [address] 12/14/2024 13:09:31 12/14/2024 14:20:48 Perennial allergic rhinitis 359050522 J30.89 [id number] SHRUTHI DONNA, [facility] Allergy 100 [facility] 100 [place] [address] 12/19/2024 13:33:44 12/19/2024 13:44:24 Perennial allergic rhinitis 229172004 J30.89 [id number] RIO CK, [facility] Allergy 100 [facility] 100 [place] [address] 12/29/2024 10:08:08 12/29/2024 10:48:59 Perennial allergic rhinitis 955448695 J30.89 [id number] SHRUTHI DONNA, [facility] Allergy 100 [facility] 100 [place] [place] [address] 01/05/2025 14:19:33 01/05/2025 14:33:10 Perennial allergic rhinitis 982070251 J30.89 Health Concerns Section Related Observation LastModified by Organization Detai ls LastModified Time None Recorded Concern Status LastModified by Organization Details LastModified Time None Recorded Payers Encounter Date Sequence Insurance Name Policy Number Policy Jaramillo Covered Member ID Jaramillo Member ID Guarantor Name 01/05/2025 1 MEDICARE B-[place]: [facility] [employer] Joceline Estes [id number] Joceline Estes 01/05/2025 2 [facility] [id number] Joceline Estes [id number] Joceline Estes OBGyn Episode No OBEpisode recorded.
--- OUTSIDE RECORDS SUMMARY | 2025-02-21 16:41 | XMS_ITS | Continuity of Care Document ---
Author Organization [place] [facility], Allergy Address [address] [place] [address] Care Team Providers Care Oyster Shucker Name Role Phone SIM ANN Primary Care Provider Assessment Encounter Date Assessment Date Assessment LastModified by Organization Details LastModified Time 12/29/2024 12/29/2024 Visit With: FRANCESCA Ozuna Use of Antihistamine s: No If yes: Vial Test Change in medications: No If yes Increase in asthma symptoms If yes, inhaler use: Reaction to last injections: No If yes: Allergy Symptoms: Other: Missed: Dose Aware of Vial Test Aware: Notes: [email or web address] Not available 12/29/2024 10:48:42 Plan of Treatment Reminders Order Date Submit Date Provider Last Modified By Organization Details Last Modified Time Details Appointments Allergy Shot 2024 02:00P M [facility] Not available Not available Not available Hearing Test 2025 01:30P M Hearing Test Not available Not available Not available [facility] hed- Allergy f-up 6mon 2025 02:00P M [...] Address Organization Details Recorded Time Chronic rhinitis [id number] Active 2023 GABRIELA PACHECO MD 100 [facility] 100, [place], [address], [place] [facility] 4 10:59:27 Impacted cerumen of bilateral ears [id number] 108 Active 2023 GABRIELA PACHECO MD 100 [facility], [address], [place], [address], [place] [facility] 4 10:59:44 Non-allergi c rhinitis 502641100256 Active 2023 GABRIELA PACHECO MD 100 [facility], [address], [place], [address], [place] [facility] 4 11:00:55 Abnormal auditory perception 11073289 Active 2023 GABRIELA PACHECO MD 100 [facility], [address], [place], [address], [place] [facility] 4 11:01:38 Allergic rhinitis 74070344 Active 2023 FRANCESCA PYLE 100 [facility], [address], [place], [address], [place] [facility] 4 13:03:02 Sensorineur al hearing loss of bilateral ears 787820149 Active 2023 ADA SPEARS 100 [facility],[address], [place], [address], [place] [facility] 4 13:31:38 Feeling of lump in throat 988565634 Active 2023 GABRIELA PACHECO MD 100 [facility], [address], [place], [address], [place] [facility] 4 14:05:35 Chronic sinusitis 93710794 Active 2023 GABRIELA PACHECO MD 100 [facility],[address], [place], [address], [place] [facility] 4 14:06:50 Perennial allergic rhinitis 649909312 Active 2024 Dell Bart [address] [place], [place], [address], [place] [facility] 14:32:29 Problem Notes None recorded. Procedures Surgical History Date Name Laterality Status Provider Name and Address Organization Details Recorded Time 02/22/20 25 Allergy Immunotherapy Injections completed RIO CKC, RMA [address] [facility], [place], [address], [place] [facility] 02/21/2025 14:56:06 02/17/20 25 Allergy Immunotherapy Injections completed Dell Bart [address] [facility] [place], [address], [place] [facility] 02/16/2025 14:09:07 02/03/20 25 Allergy Immunotherapy Injections completed RIO STOVERC, RMA [address] [facility] [place],[address], [address], [place] [facility] 02/02/2025 14:27:51 01/27/20 25 Allergy Immunotherapy Injections completed ABELARDO SANTOS RN 100 [facility],[address], [address], [place] [facility] 01/26/2025 14:42:41 01/19/20 25 Allergy Immunotherapy Injections completed RIO STOVERC, RMA [address] [facility] [place] [address], [address], [place] [facility] 01/18/2025 14:37:57 01/06/20 25 Allergy Immunotherapy Injections completed Dell Chavarriaos [address] [facility] [place],[address] [facility], [place], [address], [place] [facility] 01/05/2025 14:32:42 12/30/19 25 Allergy Immunotherapy Injections completed RIO STOVERC, RMA [address] [facility] [place],[address] [place] [address], [address], [place] [facility] 12/29/2024 10:48:31 12/20/19 25 Allergy Immunotherapy Injections completed ABELARDO SANTOS RN 100 [facility],JUYD [address] [place] [address], [address], [place] [facility] 12/19/2024 13:44:08 12/15/19 25 Allergy Immunotherapy Injections completed RADHA THOMPSON, A [address], [place], [address], [place] [facility] 12/14/2024 14:20:22 12/07/19 25 Allergy Immunotherapy Injections completed RIO BRITO, RMA [address] [facility], [place], [address], [place] [facility] 12/06/2024 14:57:17 12/07/19 25 Fiberoptic Laryngoscopy (Comprehensive) completed GABRIELA LOMBARDO MD 100 [facility] [place],[address] [facility], [place], [address], [place] [facility] 12/06/2024 13:31:06 12/01/19 25 Allergy Immunotherapy Injections completed RIO BRITO, RMA [address] [facility], [place], [address], [place] [facility] 11/30/2024 15:11:48 11/23/19 25 Allergy Immunotherapy Injections completed Dell Bart [address] [facility] [place],[address] [facility], [place], [address], [place] [facility] 11/22/2024 14:45:33 11/15/19 25 Allergy Immunotherapy Injections completed Dell Bart [address], [place], [address], [place] [facility] 11/14/2024 14:11:37 11/11/19 25 Allergy Immunotherapy Injections completed Dell Bart 100 [facility] [place],[address], [place], [address], [place] [facility] 11/10/2024 13:36:45 11/04/19 25 Allergy Immunotherapy Injections completed Dell Bart 100 [facility] [place],[address], [place], [address], [place] [facility] 11/03/2024 13:36:32 10/27/19 25 Allergy Immunotherapy Injections completed ABELARDO SANTOS RN [address], [place], [address], [place] [facility] 10/26/2024 15:07:11 10/20/19 25 Allergy Immunotherapy Injections completed RIO CRISLILIANAC, RMA [address], [place], [address], [place] [facility] 10/19/2024 14:22:48 10/04/19 25 Allergy Immunotherapy Injections completed RIO KORZEC, RMA [address], [place], [address], [place] [facility] 10/03/2024 15:03:51 09/28/19 25 Allergy Immunotherapy Injections completed RIO CRISZEC, RMA [address], [place], [address], [place] [facility] 09/27/2024 14:25:48 09/22/19 25 Allergy Immunotherapy Injections completed RADHA THOMPSON, RMA [address], [place], [address], [place] [facility] 09/21/2024 15:30:42 09/14/19 25 Allergy Immunotherapy Injections completed RIO STOVERC, RMA [address], [place], [address], [place] [facility] 09/13/2024 14:01:19 09/07/19 25 Allergy Immunotherapy Injections completed ABELARDO SANTOS RN [address], [place], [address], [place] [facility] 09/06/2024 13:56:06 09/02/19 25 Allergy Immunotherapy Injections completed RIO STOVERC, RMA [address], [place], [address], [place] [facility] 09/01/2024 14:45:17 08/26/19 25 Allergy Immunotherapy Injections completed RIO KORZEC, RMA [address], [place], [address], [place] [facility] 08/25/2024 13:32:12 08/18/19 25 Allergy Immunotherapy Injections completed RADHA THOMPSON RMA [address], [place], [address], [place] [facility] 08/17/2024 13:36:56 08/12/19 25 Allergy Immunotherapy Injections completed ABELARDO SANTOS RN [address] [place] [address], [address], [place] [facility] 08/11/2024 13:47:58 08/02/19 25 Allergy Immunotherapy Injections completed ABELARDO SANTOS RN [address], [place], [address], [place] [facility] 08/01/2024 14:50:37 07/29/19 25 Allergy Immunotherapy Injections completed ABELARDO SANTOS RN [address] [facility], [place], [address], [place] [facility] 07/28/2024 14:17:25 07/21/19 25 Allergy Immunotherapy Injections completed FRANCESCA PYLE [address], [place], [address], [place] [facility] 07/20/2024 14:39:33 07/14/19 25 Allergy Immunotherapy Injections completed ABELARDO SANTOS RN [address] [facility] [place] [address], [address], [place] [facility] 07/13/2024 14:36:25 07/06/19 25 Allergy Immunotherapy Injections completed ABELARDO SANTOS RN [address] [facility], [place], [address], [place] [facility] 07/05/2024 14:04:57 06/30/19 25 Allergy Immunotherapy Injections completed FRANCESCA OZUNA [address], [place], [address], [place] [facility] 06/29/2024 14:43:49 06/16/19 25 Allergy Immunotherapy Injections completed RIO BRITO RMAlma [address], [place], [address], [place] [facility] 06/15/2024 14:25:11 06/10/19 25 Allergy Immunotherapy Injections completed RIO BRITO RMAlma [address], [place], [address], [place] [facility] 06/09/2024 14:22:07 05/31/19 25 Allergy Immunotherapy Injections completed RIO BRITO RMA 100 [facility] [place],[address], [address], [place] [facility] 05/30/2024 15:43:04 05/25/19 25 Allergy Immunotherapy Injections completed RADHA THOMPSON RMA 100 [facility],[address], [address], [place] [facility] 05/25/2024 14:21:31 05/11/19 25 Allergy Immunotherapy Injections completed RIO BRITO RMA 100 [facility],[address], [address], [place] [facility] 05/11/2024 15:28:00 05/05/19 25 Allergy Immunotherapy Injections completed FRANCESCA PYLE 100 [facility],[address], [address], [place] [facility] 05/05/2024 14:11:35 04/28/19 25 Allergy Immunotherapy Injections completed FRANCESCA PYLE 100 [facility],[address], [address], [place] [facility] 04/28/2024 13:25:07 04/17/19 25 Allergy Immunotherapy Injections completed ABELARDO SANTOS RN 100 [facility],[address], [address], [place] [facility] 04/17/2024 15:10:42 03/15/20 24 Comp Audio with Tymps - 49425 & 79967 completed ADA SPEARS 100 [facility],[address], [address], [place] [facility] 03/15/2024 13:31:32 03/15/20 24 Fiberoptic Laryngoscopy (Comprehensive) completed GABRIELA LOMBARDO MD 100 [facility],[address], [address], [facility] - [facility] 03/15/2024 14:04:46 12/13/19 24 Allergy Testing-Full completed FRANCESCA PYLE [address] [facility], [address], [facility] 12/13/2023 14:11:35 tonsillectomy completed GABRIELA LOMBARDO MD [address], [address], [facility] 11/26/2023 10:54:51 facial rhytidoplasty completed GABRIELA LOMBARDO MD [address], [address], [facility] - [facility] 11/26/2023 10:58:58 Imaging Results None recorded. Procedure Notes None recorded. Medical Equipment None Reported. Allergies Allergen ID Allergen Name Allergen Category Reaction Reaction Severity Criticality Documentation Date Start Date Code Code System Note Provider Name and Address Organization Details Recorded Time 362417 Bactrim medicatio n other mild Not available 12/13/2023 21919 9 RxNorm FRANCESCA PYLE [address], [address], [facility] 4 13:07:20 969459 Product containin g penicilli n (product) medicatio n Not available Not available Not available 02/16/2025 09348 8001 SNOMED Not Available [employer] - prod 13:58:50 533796 sulfameth oxazole / trimethop rim medicatio n Not available Not available Not available 02/16/2025 22695 RxNorm Not Available [employer] - prod 13:58:50 Medications [...] azelastine 137 mcg (0.1 %) nasal spray [place] 2 sprays twice a day by intranasa [...] ICD10 Code Diagnosis IMO Codes Diagnosis Note [id number] RIO BRITO [facility] Allergy [address] [place] [address] 11/30/2024 14:51:01 11/30/2024 15:12:16 Perennial allergic rhinitis 890092449 J30.89 00599 GABRIELA SHIN MD [facility] [address] [address] 12/06/2024 12:51:12 12/06/2024 13:31:12 Sensorineural hearing loss of bilateral ears 720704540 H90.3 Perennial allergic rhinitis 322245942 J30.89 Feeling of lump in throat 613436923 R09.89 [id number] RADHA THOMPSON [facility] Allergy [address] [place], [place] [address] , [place] [address] 12/06/2024 13:37:15 12/06/2024 14:58:04 Perennial allergic rhinitis 340495927 J30.89 [id number] RADHA DONNA, [facility] Allergy 100 [facility],[address] [place] [address] 12/14/2024 13:09:31 12/14/2024 14:20:48 Perennial allergic rhinitis 868191699 J30.89 44043 RADHA THOMPSON, [facility] Allergy 100 [facility], [address] [place] [address] 12/19/2024 13:33:44 12/19/2024 13:44:24 Perennial allergic rhinitis 289134041 J30.89 61822 RIO CK, A Allergy 100 [facility], [address] 100 [place] [address] 12/29/2024 10:08:08 12/29/2024 10:48:59 Perennial allergic rhinitis 511684228 J30.89 Health Concerns Section Related Observation LastModified by Organization Detai ls LastModified Time None Recorded Concern Status LastModified by Organization Details LastModified Time None Recorded Payers Encounter Date Sequence Insurance Name Policy Number Policy Jaramillo Covered Member ID Jaramillo Member ID Guarantor Name 12/29/2024 1 MEDICARE B-[place]: [facility] [employer] Joceline Estes [id number] Joceline Estes 12/29/2024 2 [facility] ([facility]) [id number] Joceline Estes [id number] Joceline Estes OBGyn Episode No OBEpisode recorded.
== END 2025-02-21 14:21 | disposition home or self-care (01) ==
LOC: HO.HPHYS 13:32
PROVIDERS: PCP Internal Medicine; Visit Provider Physician Assistant
DX: M54.51 Vertebrogenic low back pain (principal); M47.816 Spondylosis without myelopathy or radiculopathy, lumbar region
CPT/HCPCS: 99214

== ENCOUNTER → 2025-02-21 13:32 | Outpatient (BNVA) | payer MEDICARE, SELFPAY | PROVIDERS: PCP Internal Medicine; Visit Provider Physician Assistant | DX: M54.51 Vertebrogenic low back pain (principal); M47.816 Spondylosis without myelopathy or radiculopathy, lumbar region; G47.00 Insomnia, unspecified | CPT/HCPCS: 99212 ==

== ENCOUNTER 2025-03-16 11:44 | Outpatient (REF) | payer MEDICARE, SELFPAY ==
--- OUTSIDE RECORDS SUMMARY | 2025-03-16 14:14 | XMS_ITS | Continuity of Care Document ---
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 - [facility] 4 10:59:44 Non-allergi c rhinitis 829441570037 Active 2023 GABRIELA PACHECO MD 100 [facility], [employer] [place], [address], [facility] - [facility] 4 11:00:55 Abnormal auditory perception 29627347 Active 2023 GABRIELA PACHECO MD 100 [facility], [address], [employer] [place], [address], [facility] - [facility] 4 11:01:38 Allergic rhinitis 67487549 Active 2023 FRANCESCA PYLE 100 [facility], [address], [place], [address], [facility] - [facility] 4 13:03:02 Sensorineur al hearing loss of bilateral ears 712398782 Active 2023 ADA SPEARS 100 [facility], [address], [place], [address], [facility] - [facility] 4 13:31:38 Feeling of lump in throat 259801260 Active 2023 GABRIELA PACHECO MD 100 [facility], [address], [place], [address], [facility] - [facility] 4 14:05:35 Chronic sinusitis 28903029 Active 2023 GABRIELA PACHECO MD [address] [facility], [employer] [place], [address], [facility] - [facility] 4 14:06:50 Perennial allergic rhinitis 730829954 Active 2024 Dell Arriaga [address] [facility], [place], [address], [place] - [facility] 14:32:29 Problem Notes None recorded. Procedures Surgical History Date Name Laterality Status Provider Name and Address Organization Details Recorded Time 03/15/20 25 Allergy Immunotherapy Injections completed RADHA THOMPSON, THAA [address], [place], [address], [place] - [facility] 03/15/2025 14:06:54 02/22/20 25 Allergy Immunotherapy Injections completed RIO BRITO, RMA [address], [place], [address], [place] [facility] 02/21/2025 14:56:06 02/17/20 25 Allergy Immunotherapy Injections completed Dell Arriaga [address] [place] [address], [address], [place] - [facility] 02/16/2025 14:09:07 02/03/20 25 Allergy Immunotherapy Injections completed RIO BRITO, RMA [address] [place] [address], [address], [place] [facility] 02/02/2025 14:27:51 01/27/20 25 Allergy Immunotherapy Injections completed ABELARDO SANTOS RN 100 [facility],[address], [address], [place] [facility] 01/26/2025 14:42:41 01/19/20 25 Allergy Immunotherapy Injections completed RIO BRITO, RMA [address] [place] [address], [address], [place] [facility] 01/18/2025 14:37:57 01/06/20 25 Allergy Immunotherapy Injections completed Dell Arriaga [address] [place] [address], [address], [place] [facility] 01/05/2025 14:32:42 12/30/19 25 Allergy Immunotherapy Injections completed RIO BRITO, RMA [address], [place], [address], [place] [facility] 12/29/2024 10:48:31 12/20/19 25 Allergy Immunotherapy Injections completed ABELARDO SANTOS RN 100 [facility],[address], [address], [facility] - [facility] 12/19/2024 13:44:08 12/15/19 25 Allergy Immunotherapy Injections completed RADHA THOMPSON [facility] [address] [facility],[address], [address], [place] [facility] 12/14/2024 14:20:22 12/07/19 25 Allergy Immunotherapy Injections completed RIO BRITO, [facility] [address] [facility],[address], [place], [address], [place] [facility] 12/06/2024 14:57:17 12/07/19 25 Fiberoptic Laryngoscopy (Comprehensive) completed GABRIELA LOMBARDO MD 100 [facility],[address], [address], [place] [facility] 12/06/2024 13:31:06 12/01/19 25 Allergy Immunotherapy Injections completed RIO BRITO [facility] 100 [facility],[address], [address], [facility] - [facility] 11/30/2024 15:11:48 11/23/19 25 Allergy Immunotherapy Injections completed Dell Bart 100 [facility],[address], [address], [facility] - [facility] 11/22/2024 14:45:33 11/15/19 25 Allergy Immunotherapy Injections completed Dell Bart 100 [facility],[address], [address], [facility] - [facility] 11/14/2024 14:11:37 11/11/19 25 Allergy Immunotherapy Injections completed Dell Bart 100 [facility],[address], [address], [place] [facility] 11/10/2024 13:36:45 11/04/19 25 Allergy Immunotherapy Injections completed Dell Bart 100 [facility],[address], [address], [place] [facility] 11/03/2024 13:36:32 10/27/19 25 Allergy Immunotherapy Injections completed ABELARDO LORINSER, RN [address], [place], [address], [place] [facility] 10/26/2024 15:07:11 10/20/19 25 Allergy Immunotherapy Injections completed RIO CKC, RMA [address], [place], [address], [place] [facility] 10/19/2024 14:22:48 10/04/19 25 Allergy Immunotherapy Injections completed RIO CRISZEC, RMA [address], [place], [address], [place] [facility] 10/03/2024 15:03:51 09/28/19 25 Allergy Immunotherapy Injections completed RIO STOVERC, RMA [address], [place], [address], [place] [facility] 09/27/2024 14:25:48 09/22/19 25 Allergy Immunotherapy Injections completed THA PYLEA [address] [facility],[address] [place] [address], [address], [place] [facility] 09/21/2024 15:30:42 09/14/19 25 Allergy Immunotherapy Injections completed RIO BRITO, RMA [address] [place] [address], [address], [place] [facility] 09/13/2024 14:01:19 09/07/19 25 Allergy Immunotherapy Injections completed ABELARDO SANTOS RN [address] [facility],[address] [place] [address], [address], [place] [facility] 09/06/2024 13:56:06 09/02/19 25 Allergy Immunotherapy Injections completed RIO STOVERC, RMA [address], [place], [address], [place] [facility] 09/01/2024 14:45:17 08/26/19 25 Allergy Immunotherapy Injections completed RIO CRISZEC, RMA [address], [place], [address], [place] [facility] 08/25/2024 13:32:12 08/18/19 25 Allergy Immunotherapy Injections completed RADHA THOMPSON RMA [address], [place], [address], [place] [facility] 08/17/2024 13:36:56 08/12/19 25 Allergy Immunotherapy Injections completed ABELARDO SANTOS RN [address], [place], [address], [place] [facility] 08/11/2024 13:47:58 08/02/19 25 Allergy Immunotherapy Injections completed ABELARDO SANTOS RN [address], [place], [address], [place] [facility] 08/01/2024 14:50:37 07/29/19 25 Allergy Immunotherapy Injections completed ABELARDO SANTOS RN [address] [facility],[address], [place], [address], [place] [facility] 07/28/2024 14:17:25 07/21/19 25 Allergy Immunotherapy Injections completed FRANCESCA PYLE [address] [facility],[address] [place] [address], [address], [place] [facility] 07/20/2024 14:39:33 07/14/19 25 Allergy Immunotherapy Injections completed ABELARDO SANTOS RN [address] [place] [address], [address], [place] [facility] 07/13/2024 14:36:25 07/06/19 25 Allergy Immunotherapy Injections completed ABELARDO SANTOS RN [address] [facility],[address] [place] [address], [address], [place] [facility] 07/05/2024 14:04:57 06/30/19 25 Allergy Immunotherapy Injections completed RIO BRITO RMA [address], [place], [address], [place] [facility] 06/29/2024 14:43:49 06/16/19 25 Allergy Immunotherapy Injections completed RIO BRITO RMAlma [address], [place], [address], [place] [facility] 06/15/2024 14:25:11 06/10/19 25 Allergy Immunotherapy Injections completed RIO BRITO, RMA [address], [place], [address], [place] [facility] 06/09/2024 14:22:07 05/31/19 25 Allergy Immunotherapy Injections completed RIO STOVERDustin, RMA [address] [place] [address], [address], [place] [facility] 05/30/2024 15:43:04 05/25/19 25 Allergy Immunotherapy Injections completed RADHA THOMPSON A [address] [facility],[address], [address], [place] [facility] 05/25/2024 14:21:31 05/11/19 25 Allergy Immunotherapy Injections completed RIO LYNCHTONIO, RMA [address] [facility],[address], [address], [place] [facility] 05/11/2024 15:28:00 05/05/19 25 Allergy Immunotherapy Injections completed RADHA THOMPSON [facility] 100 [facility],[address], [address], [place] [facility] 05/05/2024 14:11:35 04/28/19 25 Allergy Immunotherapy Injections completed RADHA THOMPSON [facility] 100 [facility],[address], [address], [place] [facility] 04/28/2024 13:25:07 04/17/19 25 Allergy Immunotherapy Injections completed ABELARDO SANTOS RN 100 [facility],[address], [address], [facility] - [facility] 04/17/2024 15:10:42 03/15/20 24 Comp Audio with Tymps - 67215 & 62755 completed ADA SPEARS 100 [facility],[address], [address], [place] [facility] 03/15/2024 13:31:32 03/15/20 24 Fiberoptic Laryngoscopy (Comprehensive) completed GABRIELA LOMBARDO MD 100 [facility],[address], [address], [place] [facility] 03/15/2024 14:04:46 12/13/19 24 Allergy Testing-Full completed FRANCESCA PYLE 100 [facility],[address], [address], [facility] 12/13/2023 14:11:35 tonsillectomy completed GABRIELA LOMBARDO MD 100 [facility],[address], [address], [facility] - [facility] 11/26/2023 10:54:51 facial rhytidoplasty completed GABRIELA LOMBARDO MD 100 [facility],[place] [address], [place], [address], [facility] 11/26/2023 10:58:58 Imaging Results None recorded. Procedure Notes None recorded. Medical Equipment None Reported. Allergies Allergen ID Allergen Name Allergen Category Reaction Reaction Severity Criticality Documentation Date Start Date Code Code System Note Provider Name and Address Organization Details Recorded Time 124740 Bactrim medicatio n other mild Not available 12/13/2023 23344 9 RxNorm FRANCESCA PYLE 100 [facility] [address], [place], [address], [facility] 4 13:07:20 255300 Product containin g penicilli n (product) medicatio n Not available Not available Not available 02/16/2025 48270 8001 SNOMED Not Available [employer] - External Data Service - prod 13:58:50 045718 sulfameth oxazole / trimethop rim medicatio n Not available Not available Not available 02/16/2025 36733 RxNorm Not Available [employer] External Data Service - prod 5 13:58:50 [...] azelastine 137 mcg (0.1 %) nasal spray [place] 2 sprays twice a day by intranasa [...] ICD10 Code Diagnosis IMO Codes Diagnosis Note [id number] FRANCESCA PYLE Allergy 100 [facility] 100 [place] [address] 01/05/2025 14:19:33 01/05/2025 14:33:10 Perennial allergic rhinitis 818248462 J30.89 52314 [facility] 100 [facility], [address] [place] [address] 01/18/2025 14:24:44 01/18/2025 14:39:46 Perennial allergic rhinitis 019624494 J30.89 70887 RADHA THOMPSON A Allergy 100 [facility] [address] [place] [address] 01/26/2025 14:09:54 01/26/2025 14:43:09 Perennial allergic rhinitis 448134232 J30.89 72661 RIO STOVER, RMA Allergy [address] [place] [address] [address] [place] [address] 02/02/2025 14:10:57 02/02/2025 14:29:05 Perennial allergic rhinitis 983354955 J30.89 Health Concerns Section Related Observation LastModified by Organization Detai ls LastModified Time None Recorded Concern Status LastModified by Organization Details LastModified Time None Recorded Payers Encounter Date Sequence Insurance Name Policy Number Policy Jaramillo Covered Member ID Jaramillo Member ID Guarantor Name 02/02/2025 1 [place]ICARE [place]: [facility] [employer] Joceline Estes [id number] Joceline Estes 02/02/2025 2 [facility] (O) [id number] Joceline Estes [id number] Joceline Estes OBGyn Episode No OBEpisode recorded.
--- OUTSIDE RECORDS SUMMARY | 2025-03-16 14:14 | XMS_ITS | Continuity of Care Document ---
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 - [facility] 4 10:59:44 Non-allergi c rhinitis [id number] Active 2023 GABRIELA PACHECO MD 100 [facility], [place], [address], [facility] - [facility] 4 11:00:55 Abnormal auditory perception 31714506 Active 2023 GABRIELA PACHECO MD 100 [facility],[address], [place], [address], [facility] - [facility] 4 11:01:38 Allergic rhinitis 31507822 Active 2023 FRANCESCA PYLE 100 [facility], [address], [place], [address], [facility] - [facility] 4 13:03:02 Sensorineur al hearing loss of bilateral ears 121046442 Active 2023 ADA SPEARS 100 [facility], [place], [address], [facility] - [facility] 4 13:31:38 Feeling of lump in throat 965892192 Active 2023 GABRIELA PACHECO MD 100 [facility], [address], [place], [address], [facility] - [facility] 4 14:05:35 Chronic sinusitis 67948009 Active 2023 GABRIELA PACHECO MD 100 [facility], [place], [address], [facility] - [facility] 4 14:06:50 Perennial allergic rhinitis 587072402 Active 2024 Dell Arriaga [address], [place], [address], [place] - [facility] 14:32:29 Problem Notes None recorded. Procedures Surgical History Date Name Laterality Status Provider Name and Address Organization Details Recorded Time 03/15/20 25 Allergy Immunotherapy Injections completed FRANCESCA PYLE [address], [place], [address], [place] [facility] 03/15/2025 14:06:54 02/22/20 25 Allergy Immunotherapy Injections completed RIO BRITO, RMA [address], [place], [address], [place] [facility] 02/21/2025 14:56:06 02/17/20 25 Allergy Immunotherapy Injections completed Dell Arriaga [address], [place], [address], [place] [facility] 02/16/2025 14:09:07 02/03/20 25 Allergy Immunotherapy Injections completed RIO BRITO, RMA [address] [place] [address], [address], [place] [facility] 02/02/2025 14:27:51 01/27/20 25 Allergy Immunotherapy Injections completed ABELARDO SANTOS RN [address] [place] [address], [address], [place] [facility] 01/26/2025 14:42:41 01/19/20 25 Allergy Immunotherapy Injections completed RIO BRITO, RMA [address] [place] [address], [address], [place] [facility] 01/18/2025 14:37:57 01/06/20 25 Allergy Immunotherapy Injections completed Dell Arriaga [address], [place], [address], [place] [facility] 01/05/2025 14:32:42 12/30/19 25 Allergy Immunotherapy Injections completed RIO BRITO, RMA [address], [place], [address], [place] [facility] 12/29/2024 10:48:31 12/20/19 25 Allergy Immunotherapy Injections completed ABELARDO SANTOS RN 100 [facility],[address], [place], [address], [facility] - [facility] 12/19/2024 13:44:08 12/15/19 25 Allergy Immunotherapy Injections completed SHRUTHI WAHL [facility] 100 [facility],[address] [place] [address], [address], [facility] - [facility] 12/14/2024 14:20:22 12/07/19 25 Allergy Immunotherapy Injections completed RIO BRITO [facility] 100 [facility],[address], [place], [address], [facility] - [facility] 12/06/2024 14:57:17 12/07/19 25 Fiberoptic Laryngoscopy (Comprehensive) completed GABRIELA LOMBARDO MD 100 [facility],[address], [address], [facility] - [facility] 12/06/2024 13:31:06 12/01/19 25 Allergy Immunotherapy Injections completed RIO BRITO [facility] 100 [facility],[address], [address], [facility] - [facility] 11/30/2024 15:11:48 11/23/19 25 Allergy Immunotherapy Injections completed Dell Bart 100 [facility],[address], [address], [facility] - [facility] 11/22/2024 14:45:33 11/15/19 25 Allergy Immunotherapy Injections completed [facility] Bart 100 [facility],[address], [address], [facility] - [facility] 11/14/2024 14:11:37 11/11/19 25 Allergy Immunotherapy Injections completed Dell Bart 100 [facility],[address] [place] [address], [address], [facility] - [facility] 11/10/2024 13:36:45 11/04/19 25 Allergy Immunotherapy Injections completed Dell Bart 100 [facility],[address], [address], [facility] - [facility] 11/03/2024 13:36:32 10/27/19 25 Allergy Immunotherapy Injections completed ABELARDO SANTOS RN [address], [place], [address], [place] [facility] 10/26/2024 15:07:11 10/20/19 25 Allergy Immunotherapy Injections completed RIO CRISZEC, RMA [address], [place], [address], [place] [facility] 10/19/2024 14:22:48 10/04/19 25 Allergy Immunotherapy Injections completed RIO KORZEC, RMA [address], [place], [address], [place] [facility] 10/03/2024 15:03:51 09/28/19 25 Allergy Immunotherapy Injections completed RIO KORZEC, RMA [address], [place], [address], [place] [facility] 09/27/2024 14:25:48 09/22/19 25 Allergy Immunotherapy Injections completed SHRUTHI WAHL RMA [address] [facility] [address] [place] [address], [address], [place] [facility] 09/21/2024 15:30:42 09/14/19 25 Allergy Immunotherapy Injections completed RIO CKC, RMA [address] [facility] [address] [place] [address], [address], [place] [facility] 09/13/2024 14:01:19 09/07/19 25 Allergy Immunotherapy Injections completed ABELARDO SANTOS RN [address] [facility] [address] [place] [address], [address], [place] [facility] 09/06/2024 13:56:06 09/02/19 25 Allergy Immunotherapy Injections completed RIO CRISZEC, RMA [address], [place], [address], [place] [facility] 09/01/2024 14:45:17 08/26/19 25 Allergy Immunotherapy Injections completed RIO KORZEC, RMA [address], [place], [address], [place] [facility] 08/25/2024 13:32:12 08/18/19 25 Allergy Immunotherapy Injections completed SHRUTHI WAHL RMA [address], [place], [address], [place] [facility] 08/17/2024 13:36:56 08/12/19 25 Allergy Immunotherapy Injections completed ABELARDO SANTOS RN [address], [place], [address], [place] [facility] 08/11/2024 13:47:58 08/02/19 25 Allergy Immunotherapy Injections completed ABELARDO SANTOS RN 100 [facility],[address], [place], [address], [place] [facility] 08/01/2024 14:50:37 07/29/19 25 Allergy Immunotherapy Injections completed ABEALRDO SANTOS RN 100 [facility],[address] [place] [address], [address], [place] [facility] 07/28/2024 14:17:25 07/21/19 25 Allergy Immunotherapy Injections completed FRANCESCA PYLE 100 [facility],[address] [place] [address], [address], [place] [facility] 07/20/2024 14:39:33 07/14/19 25 Allergy Immunotherapy Injections completed ABELARDO SANTOS RN 100 [facility],[address] [place] [address], [address], [place] [facility] 07/13/2024 14:36:25 07/06/19 25 Allergy Immunotherapy Injections completed ABELAROD SANTOS RN 100 [facility],[address] [place] [address], [address], [place] [facility] 07/05/2024 14:04:57 06/30/19 25 Allergy Immunotherapy Injections completed RIO BRITO [facility] [address] [place] [address], [address], [place] [facility] 06/29/2024 14:43:49 06/16/19 25 Allergy Immunotherapy Injections completed RIO BRITO RMA [address], [place], [address], [place] [facility] 06/15/2024 14:25:11 06/10/19 25 Allergy Immunotherapy Injections completed RIO BRITO RMA 100 [facility],[address], [address], [place] [facility] 06/09/2024 14:22:07 05/31/19 25 Allergy Immunotherapy Injections completed RIO BRITO [facility] 100 [facility],[address], [address], [place] [facility] 05/30/2024 15:43:04 05/25/19 25 Allergy Immunotherapy Injections completed THA PYLE 100 [facility],[address], [address], [place] [facility] 05/25/2024 14:21:31 05/11/19 25 Allergy Immunotherapy Injections completed RIO BRITO [facility] 100 [facility],[address], [address], [place] [facility] 05/11/2024 15:28:00 05/05/19 25 Allergy Immunotherapy Injections completed THA PYLE 100 [facility],[address], [address], [place] [facility] 05/05/2024 14:11:35 04/28/19 25 Allergy Immunotherapy Injections completed FARNCESCA PYLE [address] [place] [address],[address], [address], [place] [facility] 04/28/2024 13:25:07 04/17/19 25 Allergy Immunotherapy Injections completed ABELARDO SANTOS RN 100 [facility],[address], [address], [facility] - [facility] 04/17/2024 15:10:42 03/15/20 24 Comp Audio with Tymps - 14272 & 58620 completed ADA SPEARS 100 [facility],[address], [address], [place] [facility] 03/15/2024 13:31:32 03/15/20 24 Fiberoptic Laryngoscopy (Comprehensive) completed GABRIELA LOMBARDO MD 100 [facility],[address], [address], [place] [facility] 03/15/2024 14:04:46 12/13/19 24 Allergy Testing-Full completed FRANCESCA PYLE 100 [facility],[address] [address], [place], [address], [facility] 12/13/2023 14:11:35 tonsillectomy completed GABRIELA LOMBARDO MD 100 [facility],[address] [address], [place], [address], [facility] 11/26/2023 10:54:51 facial rhytidoplasty completed GABRIELA LOMBARDO MD 100 [facility] 100, [place], [address], [facility] 11/26/2023 10:58:58 Imaging Results None recorded. Procedure Notes None recorded. Medical Equipment None Reported. Allergies Allergen ID Allergen Name Allergen Category Reaction Reaction Severity Criticality Documentation Date Start Date Code Code System Note Provider Name and Address Organization Details Recorded Time 583663 Bactrim medicatio n other mild Not available 12/13/2023 46210 9 RxNorm FRANCESCA PYLE 100 [facility], [address], [place], [address], [facility] 4 13:07:20 424393 Product containin g penicilli n (product) medicatio n Not available Not available Not available 02/16/2025 43644 8001 SNOMED Not Available [employer] - prod 13:58:50 341328 sulfameth oxazole / trimethop rim medicatio n Not available Not available Not available 02/16/2025 51289 RxNorm Not Available [employer] - prod 13:58:50 Medications [...] azelastine 137 mcg (0.1 %) nasal spray [place] 2 sprays twice a day by intranasa [...] ICD10 Code Diagnosis IMO Codes Diagnosis Note [id number] SHRUTHI WAHL [facility] [address] [place] [address] 11/22/2024 14:35:11 11/22/2024 14:46:12 Perennial allergic rhinitis 943152963 J30.89 76973 RIO BRITO [facility] [address] [place] [address] 11/30/2024 14:51:01 11/30/2024 15:12:16 Perennial allergic rhinitis 902759831 J30.89 26707 GABRIELA SHIN MD [facility] [address] [place] [address] 12/06/2024 12:51:12 12/06/2024 13:31:12 Sensorineural hearing loss of bilateral ears 664228621 H90.3 Perennial allergic rhinitis 388128694 J30.89 Feeling of lump in throat 192015869 R09.89 [id number] SHRUTHI DONNA [facility] 100 [facility] 100 [place] [address] 12/06/2024 13:37:15 12/06/2024 14:58:04 Perennial allergic rhinitis 132839801 J30.89 25635 SHRUTHI WAHL [facility] 100 [facility] 100 [place] [address] 12/14/2024 13:09:31 12/14/2024 14:20:48 Perennial allergic rhinitis 682916064 J30.89 23805 SHRUTHI WAHL [facility] 100 [facility] 100 [place] [address] 12/19/2024 13:33:44 12/19/2024 13:44:24 Perennial allergic rhinitis 005192497 J30.89 Health Concerns Section Related Observation LastModified by Organization Detai ls LastModified Time None Recorded Concern Status LastModified by Organization Details LastModified Time None Recorded Payers Encounter Date Sequence Insurance Name Policy Number Policy Jaramillo Covered Member ID Jaramillo Member ID Guarantor Name 12/19/2024 1 [place]ICARE [place] [facility] [employer] Joceline Estes [id number] Joceline Estes 12/19/2024 2 [facility] [facility] [id number] Joceline Estes [id number] Joceline Estes OBGyn Episode No OBEpisode recorded.
--- OUTSIDE RECORDS SUMMARY | 2025-03-16 14:14 | XMS_ITS | Continuity of Care Document ---
Author Organization [place] [facility], Allergy Address [address] [place] [address] Care Team Providers Care Feather Shaper Name Role Phone SIM ANN Primary Care Provider [phone] Assessment Encounter Date Assessment Date Assessment LastModified by Organization Details LastModified Time 03/15/2025 03/15/2025 Visit With: Abelardo Santos RN Use of Antihistamine s: Yes If yes: Vial Test Change in medications: No If yes Increase in asthma symptoms If yes, inhaler use: Reaction to last injections: No If yes: Allergy Symptoms: Other: Missed: 1 week Dose Decreased Aware of Vial Test Aware: Notes: [email or web address] Not available 03/15/2025 14:07:19 Plan of Treatment Reminders Order Date Submit Date Provider Last Modified By Organization Details Last Modified Time Details Appointments Hearing Test 2025 01:30P M Hearing Test Not available Not available Not available [facility] f-[facility] 6mon 2025 02:00P M [...] Address Organization Details Recorded Time Chronic rhinitis 00215436 Active 2023 GABRIELA PACHECO MD 100 [facility],[address], [address], [place] [facility] 10:59:27 Impacted cerumen of bilateral ears [id number] 108 Active 2023 GABRIELA PACHECO MD 100 [facility], [address], [email or web address], [address], [facility] 4 10:59:44 Non-allergi c rhinitis [id number] Active 2023 GABRIELA PACHECO MD 100 [facility], [address], [email or web address], [address], [facility] - [facility] [place] 4 11:00:55 Abnormal auditory perception 58853033 Active 2023 GABRIELA PACHECO MD 100 [facility], E [facility], [email or web address], [address], [facility] - [facility] [place] 4 11:01:38 Allergic rhinitis 86369914 Active 2023 FRANCESCA PYLE 100 [facility], E [facility], [email or web address], [address], [facility] - [facility] [place] 4 13:03:02 Sensorineur al hearing loss of bilateral ears 678340514 Active 2023 ADA SPEARS 100 [facility], [address], [email or web address], [address], [facility] - [facility] [place] 4 13:31:38 Feeling of lump in throat 608430244 Active 2023 GABRIELA PACHECO MD 100 [facility] [address], [email or web address], [address], [facility] - [facility] [place] 4 14:05:35 Chronic sinusitis 41769135 Active 2023 GABRIELA PACHECO MD 100 [facility], [address], [email or web address], [address], [facility] - [facility] [place] 4 14:06:50 Perennial allergic rhinitis 431576313 Active 2024 Dell Arriaga 100 [facility], [address], [email or web address], [address], [place] [facility] 14:32:29 Problem Notes None recorded. Procedures Surgical History Date Name Laterality Status Provider Name and Address Organization Details Recorded Time 03/15/20 25 Allergy Immunotherapy Injections completed RADHA THOMPSON, RMA [address], [place], [address], [place] [facility] 03/15/2025 14:06:54 02/22/20 25 Allergy Immunotherapy Injections completed RIO BRITO, RMA [address] [facility] [address], [place], [address], [place] [facility] 02/21/2025 14:56:06 02/17/20 25 Allergy Immunotherapy Injections completed Dell Arriaga [facility],[address] [place] [address], [address], [place] [facility] 02/16/2025 14:09:07 02/03/20 25 Allergy Immunotherapy Injections completed RIO BRITO, RMA [facility],[address] [place] [address], [address], [place] [facility] 02/02/2025 14:27:51 01/27/20 25 Allergy Immunotherapy Injections completed ABELARDO SANTOS RN 100 [facility],[address], [address], [facility] 01/26/2025 14:42:41 01/19/20 25 Allergy Immunotherapy Injections completed IRO BRITO, RMA [address] [facility],[address] [place] [address], [address], [place] [facility] 01/18/2025 14:37:57 01/06/20 25 Allergy Immunotherapy Injections completed Dell Arriaga [facility],[address] [place] [address], [address], [place] [facility] 01/05/2025 14:32:42 12/30/19 25 Allergy Immunotherapy Injections completed RIO BRITO, RMA [address] [facility] [address] [place] [address], [address], [place] [facility] 12/29/2024 10:48:31 12/20/19 25 Allergy Immunotherapy Injections completed ABELARDO SANTOS RN 100 [facility],[address], [address], [place] [facility] [place] 12/19/2024 13:44:08 12/15/19 25 Allergy Immunotherapy Injections completed RADHA THOMPSON [facility] [address] [facility],[address], [place], [address], [place] [facility] 12/14/2024 14:20:22 12/07/19 25 Allergy Immunotherapy Injections completed RIO BRITO, [facility] [address] [facility],[address], [place], [address], [place] [facility] [place] 12/06/2024 14:57:17 12/07/19 25 Fiberoptic Laryngoscopy (Comprehensive) completed GABRIELA LOMBARDO MD 100 [facility],[address], [address], [place] [facility] 12/06/2024 13:31:06 12/01/19 25 Allergy Immunotherapy Injections completed RIO BRITO [facility] 100 [facility],[address], [address], [place] [facility] 11/30/2024 15:11:48 11/23/19 25 Allergy Immunotherapy Injections completed Dell Chavarriaos 100 [facility],[address], [address], [facility] [place] 11/22/2024 14:45:33 11/15/19 25 Allergy Immunotherapy Injections completed Dell Bart 100 [facility],[address], [address], [place] [facility] 11/14/2024 14:11:37 11/11/19 25 Allergy Immunotherapy Injections completed Dell Bart 100 [facility],[address], [address], [place] [facility] 11/10/2024 13:36:45 11/04/19 25 Allergy Immunotherapy Injections completed Dell Bart 100 [facility],[address], [place], [address], [place] [facility] 11/03/2024 13:36:32 10/27/19 25 Allergy Immunotherapy Injections completed ABELARDO SANTOS RN [address], [place], [address], [facility] [place] 10/26/2024 15:07:11 10/20/19 25 Allergy Immunotherapy Injections completed RIO CRISZEC, RMA [address], [place], [address], [facility] [place] 10/19/2024 14:22:48 10/04/19 25 Allergy Immunotherapy Injections completed RIO KORZEC, RMA [address], [place], [address], [place] [facility] 10/03/2024 15:03:51 09/28/19 25 Allergy Immunotherapy Injections completed RIO STOVERC, RMA [address], [place], [address], [facility] 09/27/2024 14:25:48 09/22/19 25 Allergy Immunotherapy Injections completed FRANCESCA PYLE [address], [place], [address], [facility] [place] 09/21/2024 15:30:42 09/14/19 25 Allergy Immunotherapy Injections completed RIO STOVERC, RMA [address], [place], [address], [facility] [place] 09/13/2024 14:01:19 09/07/19 25 Allergy Immunotherapy Injections completed ABELARDO SANTOS RN [address], [place], [address], [facility] [place] 09/06/2024 13:56:06 09/02/19 25 Allergy Immunotherapy Injections completed RIO CKC, RMA [address], [place], [address], [place] [facility] 09/01/2024 14:45:17 08/26/19 25 Allergy Immunotherapy Injections completed RIO KORZEC, RMA [address], [place], [address], [place] [facility] 08/25/2024 13:32:12 08/18/19 25 Allergy Immunotherapy Injections completed FRANCESCA PYLE [address], [place], [address], [place] [facility] 08/17/2024 13:36:56 08/12/19 25 Allergy Immunotherapy Injections completed ABELARDO SANTOS RN [address], [place], [address], [place] [facility] 08/11/2024 13:47:58 08/02/19 25 Allergy Immunotherapy Injections completed ABELARDO SANTOS RN [address] [facility] [address], [place], [address], [place] [facility] 08/01/2024 14:50:37 07/29/19 25 Allergy Immunotherapy Injections completed ABELARDO SANTOS RN [address] [facility] [address], [place], [address], [place] [facility] 07/28/2024 14:17:25 07/21/19 25 Allergy Immunotherapy Injections completed FRANCESCA PYLE [address] [facility] [address], [place], [address], [place] [facility] 07/20/2024 14:39:33 07/14/19 25 Allergy Immunotherapy Injections completed ABELARDO SANTOS RN [address] [facility] [address], [place], [address], [place] [facility] 07/13/2024 14:36:25 07/06/19 25 Allergy Immunotherapy Injections completed ABELARDO SANTOS RN [address] [facility],[address], [place], [address], [place] [facility] 07/05/2024 14:04:57 06/30/19 25 Allergy Immunotherapy Injections completed RIO BRITO RMAlma [address], [place], [address], [place] [facility] 06/29/2024 14:43:49 06/16/19 25 Allergy Immunotherapy Injections completed FRANCESCA ROCHA [address], [place], [address], [place] [facility] 06/15/2024 14:25:11 06/10/19 25 Allergy Immunotherapy Injections completed RIO BRITO, RMA [address] [place] [address], [address], [place] [facility] 06/09/2024 14:22:07 05/31/19 25 Allergy Immunotherapy Injections completed RIO CK, RMA [address] [facility],[address], [address], [place] [facility] 05/30/2024 15:43:04 05/25/19 25 Allergy Immunotherapy Injections completed RADHA THOMPSON [facility],[address], [address], [place] [facility] 05/25/2024 14:21:31 05/11/19 25 Allergy Immunotherapy Injections completed RIO CRISLILIANA, A [facility],[address], [address], [place] [facility] 05/11/2024 15:28:00 05/05/19 25 Allergy Immunotherapy Injections completed RADHA THOMPSON [facility] 100 [facility],[address], [address], [place] [facility] 05/05/2024 14:11:35 04/28/19 25 Allergy Immunotherapy Injections completed RADHA THOMPSON [facility] 100 [facility],[address], [address], [place] [facility] 04/28/2024 13:25:07 04/17/19 25 Allergy Immunotherapy Injections completed ABELARDO SANTOS RN 100 [facility],[address], [address], [facility] 04/17/2024 15:10:42 03/15/20 24 Comp Audio with Tymps - 85699 & 41768 completed ADA SPEARS 100 [facility],[address], [address], [facility] 03/15/2024 13:31:32 03/15/20 24 Fiberoptic Laryngoscopy (Comprehensive) completed GABRIELA LOMBARDO MD 100 [facility],[address], [address], [place] [facility] 03/15/2024 14:04:46 12/13/19 24 Allergy Testing-Full completed FRANCESCA PYLE 100 [facility],[address], [address], [facility] 12/13/2023 14:11:35 tonsillectomy completed GABRIELA LOMBRADO MD 100 [facility],[address], [address], [facility] 11/26/2023 10:54:51 facial rhytidoplasty completed GABRIELA LOMBARDO MD 100 [facility],[address], [address], [facility] 11/26/2023 10:58:58 Imaging Results None recorded. Procedure Notes None recorded. Medical Equipment None Reported. Allergies Allergen ID Allergen Name Allergen Category Reaction Reaction Severity Criticality Documentation Date Start Date Code Code System Note Provider Name and Address Organization Details Recorded Time 341098 Bactrim medicatio n other mild Not available 12/13/2023 85479 9 RxNorm FRANCESCA PYLE 100 [facility] [address], [place], [address], [facility] 4 13:07:20 736730 Product containin g penicilli n (product) medicatio n Not available Not available Not available 02/16/2025 11444 8001 SNOMED Not Available [facility] [employer] External Data [employer] - prod 13:58:50 584896 sulfameth oxazole / trimethop rim medicatio n Not available Not available Not available 02/16/2025 93303 RxNorm Not Available [facility] [employer] External [employer] - prod 13:58:50 Medications [...] azelastine 137 mcg (0.1 %) nasal spray Stuart 2 sprays twice a day by intranasa [...] ICD10 Code Diagnosis IMO Codes Diagnosis Note 96888 Dell [facility] [address] [address] 02/16/2025 13:58:16 02/16/2025 14:09:48 Perennial allergic rhinitis 312487440 J30.89 64356 RADHA THOMPSON [facility] [address] [place] [address] 100 [place] [address] 02/21/2025 14:15:12 02/21/2025 14:56:57 Perennial allergic rhinitis 655172664 J30.89 89124 FRANCESCA PYLE [facility] [address] [place] [address] [place] [address] 03/15/2025 13:22:24 03/15/2025 14:38:33 Perennial allergic rhinitis 822367589 J30.89 Health Concerns Section Related Observation LastModified by Organization Detai ls LastModified Time None Recorded Concern Status LastModified by Organization Details LastModified Time None Recorded Payers Encounter Date Sequence Insurance Name Policy Number Policy Jaramillo Covered Member ID Jaramillo Member ID Guarantor Name 03/15/2025 1 [place]: [facility] [employer] Joceline Estes [id number] Joceline Estes 03/15/2025 2 [facility] [facility] [id number] Joceline Estes [id number] Joceline Estes OBGyn Episode No OBEpisode recorded.
--- OUTSIDE RECORDS SUMMARY | 2025-03-16 14:14 | XMS_ITS | Continuity of Care Document ---
Author Organization [place] - [facility], Allergy Address [address] [place] [address] Care Team Providers Care Tram Inspector Name Role Phone SIM ANN Primary Care Provider [phone] Assessment Encounter Date Assessment Date Assessment [...] Address Organization Details Recorded Time Chronic rhinitis 72699708 Active 2023 GABRIELA PACHECO MD [address], [address], [facility] - [facility] 10:59:27 Impacted cerumen of bilateral ears [id number] 108 Active 2023 GABRIELA PACHECO MD 100 [facility], [address], [place], [address], [facility] - [facility] [place] 4 10:59:44 Non-allergi c rhinitis 146541789762 Active 2023 GABRIELA PACHECO MD 100 [facility], [address], [place], [address], [facility] - [facility] [place] 4 11:00:55 Abnormal auditory perception 15392174 Active 2023 GABRIELA PACHECO MD 100 [facility], [address], [place], [address], [facility] - [facility] [place] 4 11:01:38 Allergic rhinitis 84462280 Active 2023 FRANCESCA PYLE 100 [facility], E [facility], [place], [address], [facility] - [facility] [place] 4 13:03:02 Sensorineur al hearing loss of bilateral ears 753126032 Active 2023 ADA SPEARS 100 [facility], [address], [place], [address], [facility] - [facility] [place] 4 13:31:38 Feeling of lump in throat 760378946 Active 2023 GABRIELA PACHECO MD 100 [facility], [address], [place], [address], [facility] - [facility] [place] 4 14:05:35 Chronic sinusitis 38077803 Active 2023 GABRIELA PACHECO MD 100 [facility], [address], [place], [address], [facility] - [facility] [place] 4 14:06:50 Perennial allergic rhinitis 874276014 Active 2024 Dell Arriaga 100 [facility], [place], [address], [place] - [facility] [place] 14:32:29 Problem Notes None recorded. Procedures Surgical History Date Name Laterality Status Provider Name and Address Organization Details Recorded Time 03/15/20 25 Allergy Immunotherapy Injections completed RADHA THOMPSON, THAA [address] [facility] [address], [place], [address], [place] [facility] [place] 03/15/2025 14:06:54 02/22/20 25 Allergy Immunotherapy Injections completed RIO BRITO, RMA [address] [facility] [address], [address], [place] [facility] [place] 02/21/2025 14:56:06 02/17/20 25 Allergy Immunotherapy Injections completed Dell Arriaga 100 [facility],[address]UD[address] [place] [address], [address], [place] [facility] 02/16/2025 14:09:07 02/03/20 25 Allergy Immunotherapy Injections completed RIO BRITO RMA 100 [facility],[address]UD[address] [place] [address], [address], [place] [facility] [place] 02/02/2025 14:27:51 01/27/20 25 Allergy Immunotherapy Injections completed ABELARDO SANTOS RN 100 [facility],[address], [address], [place] [facility] [place] 01/26/2025 14:42:41 01/19/20 25 Allergy Immunotherapy Injections completed RIO BRITO, RMA 100 [facility],[address]UD[address] [place] [address], [address], [place] [facility] [place] 01/18/2025 14:37:57 01/06/20 25 Allergy Immunotherapy Injections completed Dell Arriaga 100 [facility],[address] [place] [address], [address], [place] [facility] [place] 01/05/2025 14:32:42 12/30/19 25 Allergy Immunotherapy Injections completed RIO BRITO, RMA [address] [facility] [address], [address], [place] [facility] [place] 12/29/2024 10:48:31 12/20/19 25 Allergy Immunotherapy Injections completed ABELARDO SANTOS RN 100 [facility],[address], [address], [facility] - [facility] [place] 12/19/2024 13:44:08 12/15/19 25 Allergy Immunotherapy Injections completed RADHA THOMPSON [facility] [address] [facility] [address], [place], [address], [place] [facility] [place] 12/14/2024 14:20:22 12/07/19 25 Allergy Immunotherapy Injections completed RIO BRITO, [facility] 100 [facility],[address], [place], [address], [facility] - [facility] [place] 12/06/2024 14:57:17 12/07/19 25 Fiberoptic Laryngoscopy (Comprehensive) completed GABRIELA LOMBARDO MD 100 [facility],[address], [address], [facility] - [facility] [place] 12/06/2024 13:31:06 12/01/19 25 Allergy Immunotherapy Injections completed RIO BRITO [facility] 100 [facility],[address] [place] [address], [address], [facility] - [facility] [place] 11/30/2024 15:11:48 11/23/19 25 Allergy Immunotherapy Injections completed Dell Bart 100 [facility],[address], [address], [facility] - [facility] [place] 11/22/2024 14:45:33 11/15/19 25 Allergy Immunotherapy Injections completed Dell Bart 100 [facility],[address], [address], [facility] - [facility] [place] 11/14/2024 14:11:37 11/11/19 25 Allergy Immunotherapy Injections completed Dell Bart 100 [facility],[address] [place] [address], [address], [facility] - [facility] [place] 11/10/2024 13:36:45 11/04/19 25 Allergy Immunotherapy Injections completed Dell Bart 100 [facility],[address], [address], [place] [facility] [place] 11/03/2024 13:36:32 10/27/19 25 Allergy Immunotherapy Injections completed ABELARDO SANTOS RN [address], [address], [place] [facility] [place] 10/26/2024 15:07:11 10/20/19 25 Allergy Immunotherapy Injections completed RIO CRISZEC, RMA [address], [place], [address], [place] [facility] [place] 10/19/2024 14:22:48 10/04/19 25 Allergy Immunotherapy Injections completed RIO KORZEC, RMA [address], [address], [place] [facility] [place] 10/03/2024 15:03:51 09/28/19 25 Allergy Immunotherapy Injections completed RIO CRISZEC, RMA [address], [address], [place] [facility] [place] 09/27/2024 14:25:48 09/22/19 25 Allergy Immunotherapy Injections completed THA PYLEA [address] [facility] [address] [place] [address], [address], [facility] - [facility] [place] 09/21/2024 15:30:42 09/14/19 25 Allergy Immunotherapy Injections completed RIO STOVERC, RMA [address]UD[address] [place] [address], [address], [facility] - [facility] [place] 09/13/2024 14:01:19 09/07/19 25 Allergy Immunotherapy Injections completed ABELARDO SANTOS RN [address] [facility] [address] [place] [address], [address], [facility] - [facility] [place] 09/06/2024 13:56:06 09/02/19 25 Allergy Immunotherapy Injections completed RIO CRISZEC, RMA [address], [place], [address], [place] [facility] [place] 09/01/2024 14:45:17 08/26/19 25 Allergy Immunotherapy Injections completed RIO KORZEC, RMA [address], [address], [place] [facility] [place] 08/25/2024 13:32:12 08/18/19 25 Allergy Immunotherapy Injections completed FRANCESCA PYLE [address], [address], [place] [facility] [place] 08/17/2024 13:36:56 08/12/19 25 Allergy Immunotherapy Injections completed ABELARDO SANTOS RN [address] [facility] [address], [place], [address], [place] [facility] [place] 08/11/2024 13:47:58 08/02/19 25 Allergy Immunotherapy Injections completed ABELARDO SANTOS RN [address] [facility] [address], [address], [place] [facility] [place] 08/01/2024 14:50:37 07/29/19 25 Allergy Immunotherapy Injections completed ABELARDO SANTOS RN [address] [facility] [address], [address], [place] [facility] [place] 07/28/2024 14:17:25 07/21/19 25 Allergy Immunotherapy Injections completed FRANCESCA PYLE [address] [facility] [address] [place] [address], [address], [place] [facility] [place] 07/20/2024 14:39:33 07/14/19 25 Allergy Immunotherapy Injections completed ABELARDO SANTOS RN [address] [facility] [address], [address], [place] [facility] [place] 07/13/2024 14:36:25 07/06/19 25 Allergy Immunotherapy Injections completed ABELARDO SANTOS RN [address] [facility] [address] [place] [address], [address], [place] [facility] [place] 07/05/2024 14:04:57 06/30/19 25 Allergy Immunotherapy Injections completed FRANCESCA ROCHA [address], [address], [place] [facility] [place] 06/29/2024 14:43:49 06/16/19 25 Allergy Immunotherapy Injections completed FRANCESCA ROCHA [address], [address], [place] [facility] [place] [facility] 06/15/2024 14:25:11 06/10/19 25 Allergy Immunotherapy Injections completed RIO KORZEC, RMA [address] [place] [address], [address], [place] [facility] [place] [facility] 06/09/2024 14:22:07 05/31/19 25 Allergy Immunotherapy Injections completed RIO STOVER, RMA [address] [facility] [address] [place] [address], [address], [place] [facility] [place] [facility] 05/30/2024 15:43:04 05/25/19 25 Allergy Immunotherapy Injections completed RADHA THOMPSON [facility] 100 [facility],[address], [address], [place] [facility] [place] 05/25/2024 14:21:31 05/11/19 25 Allergy Immunotherapy Injections completed RIO CRISLILIANA, A 100 [facility],[address], [address], [place] [facility] [place] [facility] 05/11/2024 15:28:00 05/05/19 25 Allergy Immunotherapy Injections completed RADHA THOMPSON [facility] 100 [facility],[address], [address], [place] [facility] [place] [facility] 05/05/2024 14:11:35 04/28/19 25 Allergy Immunotherapy Injections completed RADHA THOMPSON [facility] 100 [facility],[address], [address], [place] [facility] [place] 04/28/2024 13:25:07 04/17/19 25 Allergy Immunotherapy Injections completed ABELARDO SANTOS RN 100 [facility],[address], [address], [place] [facility] [place] 04/17/2024 15:10:42 03/15/20 24 Comp Audio with Tymps - 69626 & 32520 completed ADA SPEARS 100 [facility],[address], [address], [place] [facility] [place] 03/15/2024 13:31:32 03/15/20 24 Fiberoptic Laryngoscopy (Comprehensive) completed GABRIELA LOMBARDO MD 100 [facility],[address], [address], [place] [facility] [place] [facility] 03/15/2024 14:04:46 12/13/19 24 Allergy Testing-Full completed FRANCESCA PYLE 100 [facility],[address], [address], [facility] 12/13/2023 14:11:35 tonsillectomy completed GABRIELA LOMBARDO MD 100 [facility],[address], [address], [facility] 11/26/2023 10:54:51 facial rhytidoplasty completed GABRIELA LOMBARDO MD 100 [facility],[place] [address], [place], [address], [facility] 11/26/2023 10:58:58 Imaging Results None recorded. Procedure Notes None recorded. Medical Equipment None Reported. Allergies Allergen ID Allergen Name Allergen Category Reaction Reaction Severity Criticality Documentation Date Start Date Code Code System Note Provider Name and Address Organization Details Recorded Time 736462 Bactrim medicatio n other mild Not available 12/13/2023 77710 9 RxNorm FRANCESCA PYLE 100 [facility] [place] [address], [place], [address], [facility] 13:07:20 988559 Product containin g penicilli n (product) medicatio n Not available Not available Not available 02/16/2025 43863 8001 SNOMED Not Available [email or web address] - prod 13:58:50 724105 sulfameth oxazole / trimethop rim medicatio n Not available Not available Not available 02/16/2025 00459 RxNorm Not Available [email or web address] - prod 13:58:50 Medications [...] azelastine 137 mcg (0.1 %) nasal spray [place] 2 sprays twice a day by intranasa [...] ICD10 Code Diagnosis IMO Codes Diagnosis Note 19508 RIO CRISTONIO RMA Allergy 100 [facility] it 100 [place] [address] 01/18/2025 14:24:44 01/18/2025 14:39:46 Perennial allergic rhinitis 983424951 J30.89 74265 RADHA HTOMPSON RMA Allergy 100 [facility],[place] [address] [place] [address] 01/26/2025 14:09:54 01/26/2025 14:43:09 Perennial allergic rhinitis 700656984 J30.89 53526 RIO BRITO RMA Allergy 100 [facility] it 100 [facility] [place] [address] 02/02/2025 14:10:57 02/02/2025 14:29:05 Perennial allergic rhinitis 643991311 J30.89 70281 Dell Arriaga Allergy 100 [facility] 100 [place] [address] 02/16/2025 13:58:16 02/16/2025 14:09:48 Perennial allergic rhinitis 254958803 J30.89 Health Concerns Section Related Observation LastModified by Organization Detai ls LastModified Time None Recorded Concern Status LastModified by Organization Details LastModified Time None Recorded Payers Encounter Date Sequence Insurance Name Policy Number Policy Jaramillo Covered Member ID Jaramillo Member ID Guarantor Name 02/16/2025 1 MEDICARE B-[place]: [facility] Joceline Estes [id number] Joceline Estes 02/16/2025 2 [facility] ([facility] [id number] Joceline Estes [id number] Joceline Estes OBGyn Episode No OBEpisode recorded.
--- OUTSIDE RECORDS SUMMARY | 2025-03-16 14:14 | XMS_ITS | Continuity of Care Document ---
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 Name Role Phone SIM ANN Primary Care [...] miss the next two weeks going to [facility] Not available 02/21/2025 14:56:33 Plan of Treatment Reminders Order Date Submit Date Provider Last Modified By Organization Details Last Modified Time Details Appointments Hearing Test 2025 01:30P M Hearing Test Not available Not available Not available Lisa [facility]- Allergy f-up 6mon 2025 02:00P M [...] Address Organization Details Recorded Time Chronic rhinitis 81558673 Active 2023 GABRIELA PACHECO MD 100 [facility],[address], [address], [place] - [facility] 10:59:27 Impacted cerumen of bilateral ears [id number] 108 Active 2023 GABRIELA PACHECO MD 100 [facility],[address], [place], [address], [facility] 4 10:59:44 Non-allergi c rhinitis [id number] Active 2023 GABRIELA PACHECO MD 100 [facility], E [facility], [employer] [place], [address], [facility] - [facility] 4 11:00:55 Abnormal auditory perception 11484419 Active 2023 GABRIELA PACHECO MD 100 [facility], E [facility], [place] [place], [address], [facility] - [facility] 4 11:01:38 Allergic rhinitis 25787294 Active 2023 FRANCESCA PYLE 100 [facility], E [facility], [place], [address], [facility] - [facility] 4 13:03:02 Sensorineur al hearing loss of bilateral ears 598678464 Active 2023 ADA SPEARS 100 [facility], E [facility], [place], [address], [facility] - [facility] 4 13:31:38 Feeling of lump in throat 781145838 Active 2023 GABRIELA PACHECO MD 100 [facility], E [facility], [place], [address], [facility] 4 14:05:35 Chronic sinusitis 89917616 Active 2023 GABRIELA PACHECO MD 100 [facility], [address], [place], [address], [facility] - [facility] 4 14:06:50 Perennial allergic rhinitis 781749184 Active 2024 Dell Arriaga 100 [facility], [address], [employer], [address], [facility] 14:32:29 Problem Notes None recorded. Procedures Surgical History Date Name Laterality Status Provider Name and Address Organization Details Recorded Time 03/15/20 25 Allergy Immunotherapy Injections completed SHRUTHI WAHL, RMA [address],JUDY [address] [place] [address], [address], [facility] - [facility] 03/15/2025 14:06:54 02/22/20 25 Allergy Immunotherapy Injections completed RIO BRITO, RMA [address] [facility],[address] [place] [address], [address], [facility] - [facility] 02/21/2025 14:56:06 02/17/20 25 Allergy Immunotherapy Injections completed Dell Arriaga 100 [facility],[address], [address], [facility] - [facility] 02/16/2025 14:09:07 02/03/20 25 Allergy Immunotherapy Injections completed RIO BRITO, A 100 [facility],[address], [address], [facility] 02/02/2025 14:27:51 01/27/20 25 Allergy Immunotherapy Injections completed ABELARDO SANTOS RN 100 [facility],[address], [address], [facility] 01/26/2025 14:42:41 01/19/20 25 Allergy Immunotherapy Injections completed RIO BRITO, A 100 [facility],[address], [address], [facility] - [facility] 01/18/2025 14:37:57 01/06/20 25 Allergy Immunotherapy Injections completed Dell Arriaga 100 [facility],[address], [address], [facility] 01/05/2025 14:32:42 12/30/19 25 Allergy Immunotherapy Injections completed RIO BRITO, RMA [address] [facility],[address]UD[address] [place] [address], [address], [facility] 12/29/2024 10:48:31 12/20/19 25 Allergy Immunotherapy Injections completed ABELARDO SANTOS RN [address] [facility],[address], [place], [address], [place] [facility] 12/19/2024 13:44:08 12/15/19 25 Allergy Immunotherapy Injections completed SHRUTHI WAHL [facility], [facility] [address], [place], [address], [place] [facility] 12/14/2024 14:20:22 12/07/19 25 Allergy Immunotherapy Injections completed RIO BRITO, [facility], [facility] [address], [place], [address], [place] [facility] 12/06/2024 14:57:17 12/07/19 25 Fiberoptic Laryngoscopy (Comprehensive) completed GABRIELA LOMBAROD MD 100 [facility],[place] [address], [place], [address], [place] [facility] 12/06/2024 13:31:06 12/01/19 25 Allergy Immunotherapy Injections completed RIO BRITO, [facility], [facility] [address] [facility],[address] [place] [address], [address], [place] [facility] 11/30/2024 15:11:48 11/23/19 25 Allergy Immunotherapy Injections completed Dell Chavarriaos 100 [facility],[place] [address], [place], [address], [place] [facility] 11/22/2024 14:45:33 11/15/19 25 Allergy Immunotherapy Injections completed Dell Bart 100 [facility],[place] [address], [place], [address], [place] [facility] 11/14/2024 14:11:37 11/11/19 25 Allergy Immunotherapy Injections completed Dell Bart 100 [facility],[address], [place], [address], [place] [facility] 11/10/2024 13:36:45 11/04/19 25 Allergy Immunotherapy Injections completed Dell Bart [address] [facility],[address], [place], [address], [place] [facility] 11/03/2024 13:36:32 10/27/19 25 Allergy Immunotherapy Injections completed ABELARDO SANTOS RN [address], [place], [address], [place] [facility] 10/26/2024 15:07:11 10/20/19 25 Allergy Immunotherapy Injections completed RIO CRISZEC, RMA [address], [place], [address], [place] [facility] 10/19/2024 14:22:48 10/04/19 25 Allergy Immunotherapy Injections completed RIO KORZEC, RMA [address], [place], [address], [place] [facility] 10/03/2024 15:03:51 09/28/19 25 Allergy Immunotherapy Injections completed RIO CKC, RMA [address], [place], [address], [place] [facility] 09/27/2024 14:25:48 09/22/19 25 Allergy Immunotherapy Injections completed FRANCESCA PYLE [address], [place], [address], [place] [facility] 09/21/2024 15:30:42 09/14/19 25 Allergy Immunotherapy Injections completed RIO STOVERC, RMA [address], [place], [address], [place] [facility] 09/13/2024 14:01:19 09/07/19 25 Allergy Immunotherapy Injections completed ABELARDO SANTOS RN [address], [place], [address], [place] [facility] 09/06/2024 13:56:06 09/02/19 25 Allergy Immunotherapy Injections completed RIO CRISZEC, RMA [address], [place], [address], [place] [facility] 09/01/2024 14:45:17 08/26/19 25 Allergy Immunotherapy Injections completed RIO CKC, RMA [address], [place], [address], [place] [facility] 08/25/2024 13:32:12 08/18/19 25 Allergy Immunotherapy Injections completed FRANCESCA PYLE [address], [place], [address], [place] [facility] 08/17/2024 13:36:56 08/12/19 25 Allergy Immunotherapy Injections completed ABELARDO SANTOS RN [address], [place], [address], [place] [facility] 08/11/2024 13:47:58 08/02/19 25 Allergy Immunotherapy Injections completed ABELARDO SANTOS RN [address], [place], [address], [place] [facility] 08/01/2024 14:50:37 07/29/19 25 Allergy Immunotherapy Injections completed ABELARDO SANTOS RN [address] [place] [address], [address], [place] [facility] 07/28/2024 14:17:25 07/21/19 25 Allergy Immunotherapy Injections completed FRANCESCA PYLE [address], [place], [address], [place] [facility] 07/20/2024 14:39:33 07/14/19 25 Allergy Immunotherapy Injections completed ABELARDO SANTOS RN [address] [place] [address], [address], [place] [facility] 07/13/2024 14:36:25 07/06/19 25 Allergy Immunotherapy Injections completed ABELARDO SANTOS RN 100 [facility],[address] [place] [address], [address], [place] [facility] 07/05/2024 14:04:57 06/30/19 25 Allergy Immunotherapy Injections completed RIO BRITO RMA [address], [place], [address], [place] [facility] 06/29/2024 14:43:49 06/16/19 25 Allergy Immunotherapy Injections completed FRANCESCA ROCHA [address], [place], [address], [place] [facility] 06/15/2024 14:25:11 06/10/19 25 Allergy Immunotherapy Injections completed RIO LYNCHLILIANA, RMA [address] [facility],[address] [facility], [place], [address], [place] [facility] 06/09/2024 14:22:07 05/31/19 25 Allergy Immunotherapy Injections completed RIO CRISLILIANA, RMA [address] [facility],[address], [address], [place] [facility] 05/30/2024 15:43:04 05/25/19 25 Allergy Immunotherapy Injections completed SHRUTHI WAHL A 100 [facility],[address], [address], [place] [facility] 05/25/2024 14:21:31 05/11/19 25 Allergy Immunotherapy Injections completed RIO CRISTONIO, RMA 100 [facility],[address], [address], [place] [facility] 05/11/2024 15:28:00 05/05/19 25 Allergy Immunotherapy Injections completed SHRUTHI WAHL [facility], [facility] 100 [facility],[address], [address], [place] [facility] 05/05/2024 14:11:35 04/28/19 25 Allergy Immunotherapy Injections completed SHRUTHI WAHL [facility], [facility] 100 [facility],[address], [address], [place] [facility] 04/28/2024 13:25:07 04/17/19 25 Allergy Immunotherapy Injections completed ABELARDO SANTOS RN 100 [facility],[address], [address], [place] [facility] 04/17/2024 15:10:42 03/15/20 24 Comp Audio with Tymps - 43261 & 00467 completed ADA SPEARS 100 [facility],[address], [address], [place] [facility] 03/15/2024 13:31:32 03/15/20 24 Fiberoptic Laryngoscopy (Comprehensive) completed GABRIELA LOMBARDO MD 100 [facility],[address], [address], [place] [facility] 03/15/2024 14:04:46 12/13/19 24 Allergy Testing-Full completed FRANCESCA PYLE 100 [facility],[address], [address], [facility] 12/13/2023 14:11:35 tonsillectomy completed GABRIELA LOMBARDO MD 100 [facility],[address], [address], [facility] 11/26/2023 10:54:51 facial rhytidoplasty completed GABRIELA LOMBARDO MD 100 [facility],[address], [address], [facility] 11/26/2023 10:58:58 Imaging Results None recorded. Procedure Notes None recorded. Medical Equipment None Reported. Allergies Allergen ID Allergen Name Allergen Category Reaction Reaction Severity Criticality Documentation Date Start Date Code Code System Note Provider Name and Address Organization Details Recorded Time 955408 Bactrim medicatio n other mild Not available 12/13/2023 10078 9 RxNorm FRANCESCA PYLE 100 [facility], [place], [address], [facility] 13:07:20 630816 Product containin g penicilli n (product) medicatio n Not available Not available Not available 02/16/2025 53333 8001 SNOMED Not Available [employer] - prod 13:58:50 580634 sulfameth oxazole / trimethop rim medicatio n Not available Not available Not available 02/16/2025 11224 RxNorm Not Available [employer] - prod 13:58:50 Medications [...] azelastine 137 mcg (0.1 %) nasal spray [place] 2 sprays twice a day by intranasa [...] ICD10 Code Diagnosis IMO Codes Diagnosis Note [id number] SHRUTHI WAHL A Allergy 100 [facility] 100 [place] [address] 01/26/2025 14:09:54 01/26/2025 14:43:09 Perennial allergic rhinitis 684016441 J30.89 38820 RIO BRITO A Allergy 100 [facility] 100 [place] [address] 02/02/2025 14:10:57 02/02/2025 14:29:05 Perennial allergic rhinitis 105615502 J30.89 67334 Dell Arriaga Allergy 100 [facility] 100 [place] [address] 02/16/2025 13:58:16 02/16/2025 14:09:48 Perennial allergic rhinitis 766118098 J30.89 50256 SHRUTHI WAHL A Allergy 100 [facility] 100 [place] [address] 02/21/2025 14:15:12 02/21/2025 14:56:57 Perennial allergic rhinitis 391507284 J30.89 Health Concerns Section Related Observation LastModified by Organization Detai ls LastModified Time None Recorded Concern Status LastModified by Organization Details LastModified Time None Recorded Payers Encounter Date Sequence Insurance Name Policy Number Policy Jaramillo Covered Member ID Jaramillo Member ID Guarantor Name 02/21/2025 1 MEDICARE B-HI: [facility] Joceline Estes [id number] Joceline Estes 02/21/2025 2 [facility] (O) [id number] Joceline Estes [id number] Joceline Estes OBGyn Episode No OBEpisode recorded.
--- OUTSIDE RECORDS SUMMARY | 2025-03-16 14:15 | XMS_ITS | Continuity of Care Document ---
Author Organization [place] [facility], Allergy Address [address] [place] [phone] Care Team Providers Care Pediatric Urologist Name Role Phone SIM ANN Primary Care [...] Address Organization Details Recorded Time Chronic rhinitis 83316412 Active 2023 GABRIELA PACHECO MD [address], [address] [facility] [place] [facility] 10:59:27 Impacted cerumen of bilateral ears [id number] 108 Active 2023 GABRIELA PACHECO MD 100 [facility], [place], [address], [facility] - [facility] [place] 4 10:59:44 Non-allergi c rhinitis [id number] Active 2023 GABRIELA PACHECO MD 100 [facility], [place], [address], [facility] - [facility] [place] 4 11:00:55 Abnormal auditory perception 47938157 Active 2023 GABRIELA PACHECO MD 100 [facility], [address], [place], [address], [facility] - [facility] [place] 4 11:01:38 Allergic rhinitis 55909854 Active 2023 FRANCESCA PYLE 100 [facility], [address], [place], [address], [facility] - [facility] [place] 4 13:03:02 Sensorineur al hearing loss of bilateral ears 064391483 Active 2023 ADA SPEARS 100 [facility], [address], [place], [address], [facility] - [facility] 4 13:31:38 Feeling of lump in throat 245170146 Active 2023 GABRIELA PACHECO MD 100 [facility], [address], [place], [address], [facility] - [facility] [place] 4 14:05:35 Chronic sinusitis 07196407 Active 2023 GABRIELA PACHECO MD 100 [facility], [place], [address], [facility] - [facility] [place] 4 14:06:50 Perennial allergic rhinitis 276059775 Active 2024 Dell Arriaga 100 [facility], [place], [address], [place] [facility] [place] 14:32:29 Problem Notes None recorded. Procedures Surgical History Date Name Laterality Status Provider Name and Address Organization Details Recorded Time 03/15/20 25 Allergy Immunotherapy Injections completed RADHA THOMPSON, THAA [address], [place], [address], [place] [facility] [place] 03/15/2025 14:06:54 02/22/20 25 Allergy Immunotherapy Injections completed RIO BRITO, RMA [address], [place], [address], [place] [facility] [place] 02/21/2025 14:56:06 02/17/20 25 Allergy Immunotherapy Injections completed Dell Arriaga [address] [facility] [address] [place] [address], [address], [place] [facility] 02/16/2025 14:09:07 02/03/20 25 Allergy Immunotherapy Injections completed RIO BRITO, RMA [address] [facility] [address] [place] [address], [address], [place] [facility] [place] 02/02/2025 14:27:51 01/27/20 25 Allergy Immunotherapy Injections completed ABELARDO SANTOS RN 100 [facility],[address], [address], [place] [facility] [place] 01/26/2025 14:42:41 01/19/20 25 Allergy Immunotherapy Injections completed RIO BRITO, RMA [address] [facility] [address] [place] [address], [address], [place] [facility] 01/18/2025 14:37:57 01/06/20 25 Allergy Immunotherapy Injections completed Dell Arriaga [address] [facility] [address] [place] [address], [address], [place] [facility] [place] 01/05/2025 14:32:42 12/30/19 25 Allergy Immunotherapy Injections completed RIO BRITO, RMA [address] [facility] [address], [place], [address], [place] [facility] 12/29/2024 10:48:31 12/20/19 25 Allergy Immunotherapy Injections completed ABELARDO SANTOS RN 100 [facility],[address], [address], [facility] - [facility] [place] 12/19/2024 13:44:08 12/15/19 25 Allergy Immunotherapy Injections completed RADHA THOMPSON [facility] 100 [facility],[address], [address], [place] [facility] [place] 12/14/2024 14:20:22 12/07/19 25 Allergy Immunotherapy Injections completed RIO BRITO, [facility] 100 [facility],[address], [place], [address], [place] [facility] [place] 12/06/2024 14:57:17 12/07/19 25 Fiberoptic Laryngoscopy (Comprehensive) completed GABRIELA LOMBARDO MD 100 [facility],[address], [address], [place] [facility] [place] 12/06/2024 13:31:06 12/01/19 25 Allergy Immunotherapy Injections completed RIO BRITO [facility] 100 [facility],[address], [address], [facility] - [facility] [place] 11/30/2024 15:11:48 11/23/19 25 Allergy Immunotherapy Injections completed Dell Bart 100 [facility],[address], [address], [facility] - [facility] [place] 11/22/2024 14:45:33 11/15/19 25 Allergy Immunotherapy Injections completed Dell Bart 100 [facility],[address], [address], [facility] - [facility] [place] 11/14/2024 14:11:37 11/11/19 25 Allergy Immunotherapy Injections completed Dell Bart 100 [facility],[address], [address], [place] [facility] [place] 11/10/2024 13:36:45 11/04/19 25 Allergy Immunotherapy Injections completed Dell Bart 100 [facility],[address], [address], [place] [facility] [place] 11/03/2024 13:36:32 10/27/19 25 Allergy Immunotherapy Injections completed ABELARDO LORINSER, RN [address], [place], [address], [place] [facility] [place] 10/26/2024 15:07:11 10/20/19 25 Allergy Immunotherapy Injections completed RIO CKC, RMA [address], [place], [address], [place] [facility] [place] 10/19/2024 14:22:48 10/04/19 25 Allergy Immunotherapy Injections completed RIO CRISZEC, RMA [address], [place], [address], [place] [facility] [place] 10/03/2024 15:03:51 09/28/19 25 Allergy Immunotherapy Injections completed RIO STOVERC, RMA [address] [facility] [address], [place], [address], [place] [facility] [place] 09/27/2024 14:25:48 09/22/19 25 Allergy Immunotherapy Injections completed THA PYLEA 100 [facility],[address] [place] [address], [address], [place] [facility] [place] 09/21/2024 15:30:42 09/14/19 25 Allergy Immunotherapy Injections completed RIO BRITO, RMA [address] [facility] [address] [place] [address], [address], [place] [facility] [place] 09/13/2024 14:01:19 09/07/19 25 Allergy Immunotherapy Injections completed ABELARDO SANTOS RN 100 [facility],[address] [place] [address], [address], [place] [facility] [place] 09/06/2024 13:56:06 09/02/19 25 Allergy Immunotherapy Injections completed RIO STOVERC, RMA [address], [place], [address], [place] [facility] [place] 09/01/2024 14:45:17 08/26/19 25 Allergy Immunotherapy Injections completed RIO CRISZEC, RMA [address] [facility] [address], [place], [address], [place] [facility] [place] 08/25/2024 13:32:12 08/18/19 25 Allergy Immunotherapy Injections completed RADHA THOMPSON RMA [address], [place], [address], [place] [facility] [place] 08/17/2024 13:36:56 08/12/19 25 Allergy Immunotherapy Injections completed ABELARDO SANTOS RN [address] [facility] [address], [place], [address], [place] [facility] [place] 08/11/2024 13:47:58 08/02/19 25 Allergy Immunotherapy Injections completed ABELARDO SANTOS RN [address] [facility] [address], [place], [address], [place] [facility] [place] 08/01/2024 14:50:37 07/29/19 25 Allergy Immunotherapy Injections completed ABELARDO SANTOS RN 100 [facility],[address], [place], [address], [place] [facility] [place] 07/28/2024 14:17:25 07/21/19 25 Allergy Immunotherapy Injections completed FRANCESCA PYLE 100 [facility],[address] [place] [address], [address], [place] [facility] [place] 07/20/2024 14:39:33 07/14/19 25 Allergy Immunotherapy Injections completed ABELARDO SANTOS RN [address] [facility] [address] [place] [address], [address], [place] [facility] [place] 07/13/2024 14:36:25 07/06/19 25 Allergy Immunotherapy Injections completed ABELARDO SANTOS RN 100 [facility],[address] [place] [address], [address], [place] [facility] [place] 07/05/2024 14:04:57 06/30/19 25 Allergy Immunotherapy Injections completed RIO BRITO RMA [address], [place], [address], [place] [facility] [place] 06/29/2024 14:43:49 06/16/19 25 Allergy Immunotherapy Injections completed RIO BRITO RMAlma [address], [place], [address], [place] [facility] [place] 06/15/2024 14:25:11 06/10/19 25 Allergy Immunotherapy Injections completed RIO BRITO, RMA [address], [place], [address], [place] [facility] [place] 06/09/2024 14:22:07 05/31/19 25 Allergy Immunotherapy Injections completed RIO STOVERDustin, RMA [address] [facility] [address] [place] [address], [address], [place] [facility] [place] 05/30/2024 15:43:04 05/25/19 25 Allergy Immunotherapy Injections completed RADHA THOMPSON A 100 [facility],[address], [address], [place] [facility] [place] 05/25/2024 14:21:31 05/11/19 25 Allergy Immunotherapy Injections completed RIO LYNCHTONIO, RMA [address] [facility],[address], [address], [place] [facility] [place] 05/11/2024 15:28:00 05/05/19 25 Allergy Immunotherapy Injections completed RADHA THOMPSON [facility] 100 [facility],[address], [address], [place] [facility] [place] 05/05/2024 14:11:35 04/28/19 25 Allergy Immunotherapy Injections completed RADHA THOMPSON [facility] 100 [facility],[address], [address], [place] [facility] [place] 04/28/2024 13:25:07 04/17/19 25 Allergy Immunotherapy Injections completed ABELARDO SANTOS RN 100 [facility],[address], [address], [facility] - [facility] [place] 04/17/2024 15:10:42 03/15/20 24 Comp Audio with Tymps - 24224 & 52440 completed ADA SPEARS 100 [facility],[address], [address], [place] [facility] [place] 03/15/2024 13:31:32 03/15/20 24 Fiberoptic Laryngoscopy (Comprehensive) completed GABRIELA LOMBARDO MD 100 [facility],[address], [address], [place] [facility] [place] 03/15/2024 14:04:46 12/13/19 24 Allergy Testing-Full completed FRANCESCA PYLE 100 [facility],[address], [address], [facility] 12/13/2023 14:11:35 tonsillectomy completed GABRIELA LOMBARDO MD 100 [facility],[address], [address], [facility] - [facility] 11/26/2023 10:54:51 facial rhytidoplasty completed GABRIELA LOMBARDO MD 100 [facility],[place] [address], [place], [address], [facility] 11/26/2023 10:58:58 Imaging Results None recorded. Procedure Notes None recorded. Medical Equipment None Reported. Allergies Allergen ID Allergen Name Allergen Category Reaction Reaction Severity Criticality Documentation Date Start Date Code Code System Note Provider Name and Address Organization Details Recorded Time 273982 Bactrim medicatio n other mild Not available 12/13/2023 56760 9 RxNorm FRANCESCA PYLE 100 [facility] [address], [place], [address], [facility] 4 13:07:20 569048 Product containin g penicilli n (product) medicatio n Not available Not available Not available 02/16/2025 69268 8001 SNOMED Not Available [employer] - External Data Service - prod 13:58:50 184572 sulfameth oxazole / trimethop rim medicatio n Not available Not available Not available 02/16/2025 64398 RxNorm Not Available [employer] External Data Service - prod 5 13:58:50 [...] Available Not Available diclofenac sodium 75 mg tablet,eil yed release TAKE 1 TABLET BY MOUTH [...] azelastine 137 mcg (0.1 %) nasal spray [place] 2 sprays twice a day by intranasa [...] ICD10 Code Diagnosis IMO Codes Diagnosis Note [id number] RIO CK, [facility] Allergy [address] [place] [address] [address] 11/30/2024 14:51:01 11/30/2024 15:12:16 Perennial allergic rhinitis 685422586 J30.89 [id number] GABRIELA SHIN MD [facility] [address] [address] 12/06/2024 12:51:12 12/06/2024 13:31:12 Sensorineural hearing loss of bilateral ears 996599320 H90.3 Perennial allergic rhinitis 132144787 J30.89 Feeling of lump in throat 316599664 R09.89 [id number] RADHA THOMPSON A Allergy 100 [facility],[place] [address] [place] [address] 12/06/2024 13:37:15 12/06/2024 14:58:04 Perennial allergic rhinitis 746673741 J30.89 [id number] RADHA THOMPSON A Allergy 100 [facility],[place] [address] [place] [address] 12/14/2024 13:09:31 12/14/2024 14:20:48 Perennial allergic rhinitis 054697183 J30.89 [id number] RADHA THOMPSON A Allergy 100 [facility],[place] [address] [place] [address] 12/19/2024 13:33:44 12/19/2024 13:44:24 Perennial allergic rhinitis 768254311 J30.89 [id number] RIO STOVER RMA Allergy 100 [facility], [address] [place] [address] 12/29/2024 10:08:08 12/29/2024 10:48:59 Perennial allergic rhinitis 530595712 J30.89 Health Concerns Section Related Observation LastModified by Organization Detai ls LastModified Time None Recorded Concern Status LastModified by Organization Details LastModified Time None Recorded Payers Encounter Date Sequence Insurance Name Policy Number Policy Jaramillo Covered Member ID Jaramillo Member ID Guarantor Name 12/29/2024 1 MEDICARE B-[place]: [facility] [employer] Joceline Estes [id number] Joceline Estes 12/29/2024 2 [facility] ([facility]) [id number] Joceline Estes [id number] Joceline Estes OBGyn Episode No OBEpisode recorded.
--- OUTSIDE RECORDS SUMMARY | 2025-03-16 14:15 | XMS_ITS | Continuity of Care Document ---
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 - [facility] [place] 4 10:59:44 Non-allergi c rhinitis [id number] Active 2023 GABRIELA PACHECO MD 100 [facility], [address], [place], [address], [facility] - [facility] [place] 4 11:00:55 Abnormal auditory perception 26249266 Active 2023 GABRIELA PACHECO MD 100 [facility], E [facility], [place], [address], [facility] - [facility] [place] 4 11:01:38 Allergic rhinitis 76943391 Active 2023 FRANCESCA PYLE 100 [facility], E [facility], [place], [address], [facility] - [facility] [place] 4 13:03:02 Sensorineur al hearing loss of bilateral ears 548209446 Active 2023 ADA SPEARS 100 [facility], E [facility], [place], [address], [facility] - [facility] [place] 4 13:31:38 Feeling of lump in throat 519993529 Active 2023 GABRIELA PACHECO MD 100 [facility] [address], [place], [address], [facility] - [facility] [place] 4 14:05:35 Chronic sinusitis 68609755 Active 2023 GABRIELA PACHECO MD 100 [facility], [address], [place], [address], [facility] - [facility] [place] 4 14:06:50 Perennial allergic rhinitis 462153369 Active 2024 Dell Arriaga 100 [facility], [address], [place], [address], [place] - [facility] 14:32:29 Problem Notes None recorded. Procedures Surgical History Date Name Laterality Status Provider Name and Address Organization Details Recorded Time 03/15/20 25 Allergy Immunotherapy Injections completed RADHA THOMPSON, RMA [address], [place], [address], [place] [facility] 03/15/2025 14:06:54 02/22/20 25 Allergy Immunotherapy Injections completed RIO BRITO, RMA [address] [facility], [address], [place] [facility] 02/21/2025 14:56:06 02/17/20 25 Allergy Immunotherapy Injections completed Dell Arriaga [address] [place] [address], [address], [place] [facility] 02/16/2025 14:09:07 02/03/20 25 Allergy Immunotherapy Injections completed RIO BRITO, RMA 100 [facility] [address] [place] [address], [address], [place] [facility] 02/02/2025 14:27:51 01/27/20 25 Allergy Immunotherapy Injections completed ABELARDO SANTOS RN 100 [facility],[address] [place] [address], [address], [place] [facility] 01/26/2025 14:42:41 01/19/20 25 Allergy Immunotherapy Injections completed RIO BRITO, RMA 100 [facility],[address] [place] [address], [address], [place] [facility] 01/18/2025 14:37:57 01/06/20 25 Allergy Immunotherapy Injections completed Dell Arriaga [address] [facility] [place] [address], [address], [place] [facility] 01/05/2025 14:32:42 12/30/19 25 Allergy Immunotherapy Injections completed RIO BRITO, RMA [address] [facility] [place] [address], [address], [place] [facility] 12/29/2024 10:48:31 12/20/19 25 Allergy Immunotherapy Injections completed ABELARDO SANTOS RN [address] [facility] [place],[address], [address], [place] [facility] 12/19/2024 13:44:08 12/15/19 25 Allergy Immunotherapy Injections completed RADHA THOMPSON [facility] [address] [facility], [place], [address], [place] [facility] 12/14/2024 14:20:22 12/07/19 25 Allergy Immunotherapy Injections completed RIO BRITO, [facility] 100 [facility] [address], [place], [address], [place] [facility] 12/06/2024 14:57:17 12/07/19 25 Fiberoptic Laryngoscopy (Comprehensive) completed GABRIELA LOMBARDO MD 100 [facility],[address], [address], [place] [facility] 12/06/2024 13:31:06 12/01/19 25 Allergy Immunotherapy Injections completed RIO BRITO [facility] 100 [facility],[address] [place] [address], [address], [place] [facility] 11/30/2024 15:11:48 11/23/19 25 Allergy Immunotherapy Injections completed Dell Bart 100 [facility],[address], [address], [place] [facility] 11/22/2024 14:45:33 11/15/19 25 Allergy Immunotherapy Injections completed Dell Bart 100 [facility],[address], [address], [place] [facility] 11/14/2024 14:11:37 11/11/19 25 Allergy Immunotherapy Injections completed Dell Bart 100 [facility],[address] [place] [address], [address], [place] [facility] 11/10/2024 13:36:45 11/04/19 25 Allergy Immunotherapy Injections completed Dell Bart 100 [facility] [address], [address], [place] [facility] 11/03/2024 13:36:32 10/27/19 25 Allergy Immunotherapy Injections completed ABELARDO SANTOS RN [address], [address], [facility] - [facility] 10/26/2024 15:07:11 10/20/19 25 Allergy Immunotherapy Injections completed RIO CRISZEC, RMA [address], [address], [facility] - [facility] 10/19/2024 14:22:48 10/04/19 25 Allergy Immunotherapy Injections completed RIO KORZEC, RMA [address], [place], [address], [facility] - [facility] 10/03/2024 15:03:51 09/28/19 25 Allergy Immunotherapy Injections completed RIO KORZEC, RMA [address] [facility], [address], [facility] - [facility] 09/27/2024 14:25:48 09/22/19 25 Allergy Immunotherapy Injections completed FRANCESCA PYLE [address] [facility], [address], [facility] - [facility] 09/21/2024 15:30:42 09/14/19 25 Allergy Immunotherapy Injections completed RIO STOVERC, RMA [address] [facility] [place] [address], [address], [facility] - [facility] 09/13/2024 14:01:19 09/07/19 25 Allergy Immunotherapy Injections completed ABELARDO SANTOS RN 100 [facility],[address] [place] [address], [address], [facility] - [facility] 09/06/2024 13:56:06 09/02/19 25 Allergy Immunotherapy Injections completed RIO CRISZEC, RMA [address] [facility] [address], [address], [place] [facility] 09/01/2024 14:45:17 08/26/19 25 Allergy Immunotherapy Injections completed RIO KORZEC, RMA [address], [address], [place] [facility] 08/25/2024 13:32:12 08/18/19 25 Allergy Immunotherapy Injections completed FRANCESCA PYLE [address], [place], [address], [place] [facility] 08/17/2024 13:36:56 08/12/19 25 Allergy Immunotherapy Injections completed ABELARDO SANTOS RN [address] [facility] [address], [place], [address], [place] [facility] 08/11/2024 13:47:58 08/02/19 25 Allergy Immunotherapy Injections completed ABELARDO SANTOS RN [address] [facility] [address], [place], [address], [place] [facility] 08/01/2024 14:50:37 07/29/19 25 Allergy Immunotherapy Injections completed ABELARDO SANTOS RN [address] [facility] [address], [address], [place] [facility] 07/28/2024 14:17:25 07/21/19 25 Allergy Immunotherapy Injections completed FRANCESCA PYLE [address] [facility] [address], [address], [place] [facility] 07/20/2024 14:39:33 07/14/19 25 Allergy Immunotherapy Injections completed ABELARDO SANTOS RN [address] [facility] [address] [place] [address], [address], [place] [facility] 07/13/2024 14:36:25 07/06/19 25 Allergy Immunotherapy Injections completed ABELARDO SANTOS RN 100 [facility],[address] [place] [address], [address], [place] [facility] 07/05/2024 14:04:57 06/30/19 25 Allergy Immunotherapy Injections completed RIO BRITO RMAlma [address], [place], [address], [place] [facility] 06/29/2024 14:43:49 06/16/19 25 Allergy Immunotherapy Injections completed FRANCESCA OZUNA [address], [address], [place] [facility] 06/15/2024 14:25:11 06/10/19 25 Allergy Immunotherapy Injections completed RIO KORZEC, RMA [address] [place] [address], [address], [place] [facility] 06/09/2024 14:22:07 05/31/19 25 Allergy Immunotherapy Injections completed RIO STOVER, RMA [address] [facility], [address], [place] [facility] 05/30/2024 15:43:04 05/25/19 25 Allergy Immunotherapy Injections completed RADHA THOMPSON [facility] 100 [facility],[address], [address], [place] [facility] 05/25/2024 14:21:31 05/11/19 25 Allergy Immunotherapy Injections completed RIO CRISLILIANA, A 100 [facility],[address], [address], [place] [facility] 05/11/2024 15:28:00 05/05/19 25 Allergy Immunotherapy Injections completed RADHA THOMPSON [facility] 100 [facility],[address], [address], [place] [facility] 05/05/2024 14:11:35 04/28/19 25 Allergy Immunotherapy Injections completed RADHA THOMPSON [facility] 100 [facility],[address], [address], [place] [facility] 04/28/2024 13:25:07 04/17/19 25 Allergy Immunotherapy Injections completed ABELARDO SANTOS RN 100 [facility],[address], [address], [facility] - [facility] 04/17/2024 15:10:42 03/15/20 24 Comp Audio with Tymps - 12123 & 23347 completed ADA SPEARS 100 [facility],[address], [address], [place] [facility] 03/15/2024 13:31:32 03/15/20 24 Fiberoptic Laryngoscopy (Comprehensive) completed GABRIELA LOMBARDO MD 100 [facility],[address], [address], [place] [facility] 03/15/2024 14:04:46 12/13/19 24 Allergy Testing-Full completed FRANCESCA PYLE 100 [facility],[address], [address], [facility] 12/13/2023 14:11:35 tonsillectomy completed GABRIELA LOMBARDO MD 100 [facility],[address], [address], [facility] 11/26/2023 10:54:51 facial rhytidoplasty completed GABRIELA LOMBARDO MD 100 [facility],[place] [address], [place], [address], [facility] 11/26/2023 10:58:58 Imaging Results None recorded. Procedure Notes None recorded. Medical Equipment None Reported. Allergies Allergen ID Allergen Name Allergen Category Reaction Reaction Severity Criticality Documentation Date Start Date Code Code System Note Provider Name and Address Organization Details Recorded Time 285500 Bactrim medicatio n other mild Not available 12/13/2023 71274 9 RxNorm FRANCESCA PYLE 100 [facility],[address], [place], [address], [facility] 13:07:20 530718 Product containin g penicilli n (product) medicatio n Not available Not available Not available 02/16/2025 70643 8001 SNOMED Not Available Szl External Data Service - prod 13:58:50 321025 sulfameth oxazole / trimethop rim medicatio n Not available Not available Not available 02/16/2025 96484 RxNorm Not Available Szl External Data Service - prod 13:58:50 Medications [...] azelastine 137 mcg (0.1 %) nasal spray [place] 2 sprays twice a day by intranasa [...] ICD10 Code Diagnosis IMO Codes Diagnosis Note 13869 THA PYLEA Allergy 100 [facility],[address] [place] [address] 12/19/2024 13:33:44 12/19/2024 13:44:24 Perennial allergic rhinitis 316984135 J30.89 00000 RIO CK RMA Allergy 100 [facility],[address] [place] [address] 12/29/2024 10:08:08 12/29/2024 10:48:59 Perennial allergic rhinitis 724622815 J30.89 15408 RADHA THOMPSON A Allergy 100 [facility] it 100 [facility] [place] [address] 01/05/2025 14:19:33 01/05/2025 14:33:10 Perennial allergic rhinitis 462830759 J30.89 25621 [facility], RMA Allergy 100 [facility] 100 [place] [address] 01/18/2025 14:24:44 01/18/2025 14:39:46 Perennial allergic rhinitis 234244034 J30.89 Health Concerns Section Related Observation LastModified by Organization Detai ls LastModified Time None Recorded Concern Status LastModified by Organization Details LastModified Time None Recorded Payers Encounter Date Sequence Insurance Name Policy Number Policy Ajramillo Covered Member ID Jaramillo Member ID Guarantor Name 01/18/2025 1 MEDICARE B-ID: [facility] Joceline Estes [id number] Joceline Estes 01/18/2025 2 [facility] (O) [id number] Joceline Estes [id number] Joceline Estes OBGyn Episode No OBEpisode recorded.
--- OUTSIDE RECORDS SUMMARY | 2025-03-16 14:15 | XMS_ITS | Data Portability ---
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 Name Role Phone SIM ANN Primary Care Provider Assessment Encounter Date Assessment Date Assessment LastModified by Organization Details LastModified Time 01/26/2025 01/26/2025 Visit With: Shruthi Thompson Use [...] Dose Aware of Vial Test Aware: Notes: [email or web address] Not available 02/02/2025 14:28:44 02/16/2025 02/16/2025 Visit With: Dell Arriaga [place] Use of Antihistamine s: No If yes: Vial Test Change in medications: No If yes Increase in asthma symptoms No If yes, inhaler use: Reaction to last injections: No If yes: Allergy Symptoms: Other: Missed: 1 week Dose Aware of Vial Test Aware: Notes: [email or web address] Not available 02/16/2025 14:09:31 02/21/2025 02/21/2025 Visit With: Shruthi Thompson Use of Antihistamine s: No If yes: Vial Test Change in medications: No If yes Increase in asthma symptoms If yes, inhaler use: Reaction to last injections: No If yes: Allergy Symptoms: Other: Missed: Dose Aware of Vial Test Aware: Notes:will miss the next two weeks going to [facility] Not available 02/21/2025 14:56:33 03/15/2025 03/15/2025 Visit With: Abelardo Santos RN Use of Antihistamine s: Yes If yes: Vial Test Change in medications: No If yes Increase in asthma symptoms If yes, inhaler use: Reaction to last injections: No If yes: Allergy Symptoms: Other: Missed: 1 week Dose Decreased Aware of Vial Test Aware: Notes: [email or web address] Not available 03/15/2025 14:07:19 Plan of Treatment [...] Address Organization Details Recorded Time Chronic rhinitis 24888348 Active 2023 GABRIELA PACHECO MD [address] [address], [place], [address], [facility] - [facility] 10:59:27 Impacted cerumen of bilateral ears [id number] 108 Active 2023 GABRIELA PACHECO MD [address] [address], [place], [address], [facility] - [facility] 10:59:44 Non-allergi c rhinitis 160601500405 Active 2023 GABRIELA PACHECO MD [address] [address], [place], [address], [facility] [place] 4 11:00:55 Abnormal auditory perception 73601828 Active 2023 GABRIELA PACHECO MD 100 [facility], [address] [facility], [place], [address], [facility] - [facility] [place] 4 11:01:38 Allergic rhinitis 18611154 Active 2023 FRANCESCA PYLE [address] [facility], [facility], [place], [address], [facility] - [facility] [place] 4 13:03:02 Sensorineur al hearing loss of bilateral ears 229597809 Active 2023 ADA SPEARS [address] [facility], [facility], [place], [address], [facility] - [facility] [place] 4 13:31:38 Feeling of lump in throat 824494340 Active 2023 GABRIELA PACHECO MD 100 [facility], [facility], [place], [address], [facility] - [facility] [place] 4 14:05:35 Chronic sinusitis 14339011 Active 2023 GABRIELA PACHECO MD [address] [facility], [facility], [place], [address], [facility] - [facility] [place] 4 14:06:50 Perennial allergic rhinitis 861454167 Active 2024 Dell Arriaga [address] [facility], [address], [place], [address], [facility] - [facility] [place] 5 14:32:29 Problem Notes None recorded. Procedures Surgical History Date Name Laterality Status Provider Name and Address Organization Details Recorded Time 03/15/20 25 Allergy Immunotherapy Injections completed FRANCESCA PYLE [address] [place] [address],[facility] [address], [address], [facility] - [facility] [place] 03/15/2025 14:06:54 02/22/20 25 Allergy Immunotherapy Injections completed RIO KORZEC, RMA [address],[place] [address], [address], [place] [facility] [place] 02/21/2025 14:56:06 02/17/20 25 Allergy Immunotherapy Injections completed Dell Arriaga [address], [place], [address], [place] [facility] [place] 02/16/2025 14:09:07 02/03/20 25 Allergy Immunotherapy Injections completed RIO BRITO, RMA [address],[place] [address], [address], [place] [facility] [place] 02/02/2025 14:27:51 01/27/20 25 Allergy Immunotherapy Injections completed ABELARDO SANTOS RN [address],JUD[address] [place] [address], [address], [place] [facility] [place] 01/26/2025 14:42:41 01/19/20 25 Allergy Immunotherapy Injections completed RIO BRITO, A [address],JUD[address] [place] [address], [address], [place] [facility] [place] 01/18/2025 14:37:57 01/06/20 25 Allergy Immunotherapy Injections completed Dell Arriaga [address],JUD[address] [place] [address], [address], [place] [facility] [place] 01/05/2025 14:32:42 12/30/19 25 Allergy Immunotherapy Injections completed RIO BRITO, RMA [address],JUD[address] [place] [address], [address], [place] [facility] [place] 12/29/2024 10:48:31 12/20/19 25 Allergy Immunotherapy Injections completed ABELARDO SANTOS RN [address],JUD[address] [place] [address], [address], [place] [facility] [place] 12/19/2024 13:44:08 12/15/19 25 Allergy Immunotherapy Injections completed SHRUTHI THOMPSON [place] [address], [place], [address], [place] [facility] [place] 12/14/2024 14:20:22 12/07/19 25 Allergy Immunotherapy Injections completed RIO BRITO, RMA [address], [place], [address], [place] [facility] [place] 12/06/2024 14:57:17 12/07/19 25 Fiberoptic Laryngoscopy (Comprehensive) completed GABRIELA LOMBARDO MD [address], [place], [address], [place] [facility] [place] 12/06/2024 13:31:06 12/01/19 25 Allergy Immunotherapy Injections completed RIO BRITO, RMA [address], [place], [address], [place] [facility] [place] 11/30/2024 15:11:48 11/23/19 25 Allergy Immunotherapy Injections completed Dell Bart [address] [facility],[address], [place], [address], [place] [facility] [place] 11/22/2024 14:45:33 11/15/19 25 Allergy Immunotherapy Injections completed Dell Bart 100 [facility],J[address], [place], [address], [place] [facility] [place] 11/14/2024 14:11:37 11/11/19 25 Allergy Immunotherapy Injections completed Dell Bart [address] [facility],[place] [address], [address], [facility] - [facility] [place] 11/10/2024 13:36:45 11/04/19 25 Allergy Immunotherapy Injections completed Dell Bart [address] [facility],[address] [place] [address], [address], [place] [facility] [place] 11/03/2024 13:36:32 10/27/19 25 Allergy Immunotherapy Injections completed ABELARDO SANTOS RN [address], [place], [address], [place] [facility] [place] 10/26/2024 15:07:11 10/20/19 25 Allergy Immunotherapy Injections completed RIO BRITO, RMA [address],[place], [address], [place] [facility] [place] 10/19/2024 14:22:48 10/04/19 25 Allergy Immunotherapy Injections completed RIO BRITO, RMA [address], [place], [address], [place] [facility] [place] 10/03/2024 15:03:51 09/28/19 25 Allergy Immunotherapy Injections completed RIO BRITO, RMA [address],[place] [address], [address], [place] [facility] [place] 09/27/2024 14:25:48 09/22/19 25 Allergy Immunotherapy Injections completed SHRUTHI THOMPSON RMA [address],[place], [address], [place] [facility] [place] 09/21/2024 15:30:42 09/14/19 25 Allergy Immunotherapy Injections completed RIO BRITO RMA [address],[place], [address], [place] [facility] [place] 09/13/2024 14:01:19 09/07/19 25 Allergy Immunotherapy Injections completed ABELARDO SANTOS RN [address] [facility],[address] [place] [address], [address], [place] [facility] [place] 09/06/2024 13:56:06 09/02/19 25 Allergy Immunotherapy Injections completed RIO BRITO, RMA [address]UD[address] [place] [address], [address], [place] [facility] [place] 09/01/2024 14:45:17 08/26/19 25 Allergy Immunotherapy Injections completed RIO BRITO RMA [address]UD[address] [place] [address], [address], [place] [facility] [place] 08/25/2024 13:32:12 08/18/19 25 Allergy Immunotherapy Injections completed FRANCESCA PYLE [address] [place] [address], [address], [place] [facility] [place] 08/17/2024 13:36:56 08/12/19 25 Allergy Immunotherapy Injections completed ABELARDO SANTOS RN [address] [facility],[place], [address], [place] [facility] [place] 08/11/2024 13:47:58 08/02/19 25 Allergy Immunotherapy Injections completed ABELARDO SANTOS RN [address] [facility],[address] [place] [address], [address], [place] [facility] [place] 08/01/2024 14:50:37 07/29/19 25 Allergy Immunotherapy Injections completed ABELARDO SANTOS RN [address] [place] [address], [address], [place] [facility] [place] 07/28/2024 14:17:25 07/21/19 25 Allergy Immunotherapy Injections completed FRANCESCA PYLE [address] [facility],[address] [place] [address], [address], [place] [facility] [place] 07/20/2024 14:39:33 07/14/19 25 Allergy Immunotherapy Injections completed ABELARDO SANTOS RN [address] [facility],[address] [place] [address], [address], [place] [facility] [place] 07/13/2024 14:36:25 07/06/19 25 Allergy Immunotherapy Injections completed ABELARDO SANTOS RN 100 [facility],[address] [place] [address], [address], [place] [facility] [place] 07/05/2024 14:04:57 06/30/19 25 Allergy Immunotherapy Injections completed RIO BRITO RMA [address] [place] [address], [address], [place] [facility] [place] 06/29/2024 14:43:49 06/16/19 25 Allergy Immunotherapy Injections completed RIO BRITO RMA [address] [facility],[address] [place] [address], [address], [place] [facility] [place] 06/15/2024 14:25:11 06/10/19 25 Allergy Immunotherapy Injections completed RIO STOVERC RMA [address] [place] [address], [address], [place] [facility] [place] 06/09/2024 14:22:07 05/31/19 25 Allergy Immunotherapy Injections completed RIO STOVERC, RMA [address],[place], [place], [address], [place] [facility] [place] 05/30/2024 15:43:04 05/25/19 25 Allergy Immunotherapy Injections completed FRANCESCA PYLE 100 [facility],[address], [address], [place] [facility] [place] 05/25/2024 14:21:31 05/11/19 25 Allergy Immunotherapy Injections completed RIO BRITO, [facility] 100 [facility],[address], [address], [facility] - [facility] [place] 05/11/2024 15:28:00 05/05/19 25 Allergy Immunotherapy Injections completed SHRUTHI THOMPSON [facility] 100 [facility],[address], [address], [place] [facility] [place] 05/05/2024 14:11:35 04/28/19 25 Allergy Immunotherapy Injections completed SHRUTHI THOMPSON [facility] 100 [facility],[address], [address], [facility] [place] 04/28/2024 13:25:07 04/17/19 25 Allergy Immunotherapy Injections completed ABELARDO SANTOS RN 100 [facility],[address], [address], [facility] [place] 04/17/2024 15:10:42 03/15/20 24 Comp Audio with Tymps - 99746 & 10585 completed ADA SPEARS [address] [place] [address],[address], [address], [facility] - [facility] 03/15/2024 13:31:32 03/15/20 24 Fiberoptic Laryngoscopy (Comprehensive) completed GABRIELA LOMBARDO MD 100 [facility],[address], [address], [facility] [place] 03/15/2024 14:04:46 12/13/19 24 Allergy Testing-Full completed SHRUTHI THOMPSON [facility] 100 [facility],[address], [address], [facility] [place] 12/13/2023 14:11:35 tonsillectomy completed GABRIELA LOMBARDO MD 100 [facility],[address], [address], [facility] [place] 11/26/2023 10:54:51 facial rhytidoplasty completed GABRIELA LOMBARDO MD [address] [address], [place], [address], [facility] - [facility] 11/26/2023 10:58:58 Imaging Results None recorded. Procedure Notes None recorded. Medical Equipment None Reported. Allergies Allergen ID Allergen Name Allergen Category Reaction Reaction Severity Criticality Documentation Date Start Date Code Code System Note Provider Name and Address Organization Details Recorded Time 215166 Bactrim medicatio n other mild Not available 12/13/2023 05242 9 RxNorm FRANCESCA PYLE 100 [facility] [address], [place], [address], [facility] - [facility] 4 13:07:20 847558 Product containin g penicilli n (product) medicatio n Not available Not available Not available 02/16/2025 64414 8001 SNOMED Not Available IfOnly External Data Service - prod 13:58:50 100204 sulfameth oxazole / trimethop rim medicatio n Not available Not available Not available 02/16/2025 10845 RxNorm Not Available IfOnly External Data Service - prod 13:58:50 Medications [...] BY MOUTH EVERY 6 HOURS UNTIL FINISHED 01/20 /2025 completed Not Available Not Available Not Available [...] azelastine 137 mcg (0.1 %) nasal spray [place] 2 sprays twice a day by intranasa [...] ICD10 Code Diagnosis IMO Codes Diagnosis Note [id number] GABRIELA SHIN MD [facility] [address] [address] 11/26/2023 10:21:33 11/26/2023 11:10:58 Chronic rhinitis 21037951 J31.0 Impacted c erumen of bilateral ears 0153768701 713701 H61.23 Suggested 3 drops distilled vinegar in each ear twice weekly to prevent the buildup of cerumen Non-allergic rhinitis 31 14353829 01 J31.0 Abnormal a uditory perception 56245297 H93.293 check audio [id number] FRANCESCA PYLE Allergy [address] [place] [address] [place] [address] 12/13/2023 12:55:50 12/13/2023 15:26:03 Allergic rhinitis 37615056 J30.9 [id number] GABRIELA SHIN MD [facility] [address] [address] 03/15/2024 13:04:17 03/15/2024 15:23:03 Feeling of lump in throat 506735572 R09.89 Allergic rhinitis 456469 04 J30.9 Sensorineu ral hearing loss of bilateral ears 654126986 H90.3 Chronic sinusitis 972685 00 J32.9 [id number] ADA SPEARS [facility] [address] [place] [address] 03/15/2024 13:30:55 03/16/2024 06:57:53 Sensorineural hearing loss of bilateral ears 426367155 H90.3 Audiologic al evaluation results:Ri ght ear:Normal sloping at 6kHz to moderate sensorineu ral hearing loss with excellent word recognitio n.Left ear:Normal sloping at 6kHz to moderate sensorineu ral hearing loss with excellent word recognitio n.Tympanom etry:Right Ear:Type ALeft Ear:Type A [id number] ABELARDO SANTOS RN Allergy [address] [place] [address] 04/17/2024 14:39:48 04/17/2024 15:12:01 Perennial allergic rhinitis 711258869 J30.89 [id number] SHRUTHI THOMPSON [facility] Allergy [address] [place] [address] 04/28/2024 13:09:35 04/28/2024 13:25:34 Perennial allergic rhinitis 506016228 J30.89 [id number] SHURTHI THOMPSON [facility] Allergy [address] [place] [address] 05/05/2024 13:47:24 05/05/2024 14:13:10 Perennial allergic rhinitis 948714953 J30.89 [id number] [facility] Allergy [address] [place] [address] 05/11/2024 15:02:28 05/11/2024 15:28:30 Perennial allergic rhinitis 096138636 J30.89 [id number] [facility] Allergy [address] [place] [address] 05/25/2024 14:10:12 05/25/2024 14:44:03 Perennial allergic rhinitis 136309505 J30.89 [id number] [facility], RMA Allergy [address] [facility],[place] [address] [place] [address] 05/30/2024 15:31:34 05/30/2024 15:43:32 Perennial allergic rhinitis 688338237 J30.89 [id number] [facility], RMA Allergy [address] [facility],[place] [address] [place] [address] 06/09/2024 14:15:07 06/09/2024 14:22:35 Perennial allergic rhinitis 972361485 J30.89 [id number] [facility], RMA Allergy [address] [facility],[place] [address] [place] [address] 06/15/2024 14:19:17 06/15/2024 14:25:32 Perennial allergic rhinitis 584160811 J30.89 [id number] [facility], RMA Allergy [address] [facility],[place] [address] [place] [address] 06/29/2024 14:27:19 06/29/2024 14:44:17 Perennial allergic rhinitis 558858058 J30.89 [id number] [facility], RMA Allergy [address] [facility],[place] [address] [place] [address] 07/05/2024 13:49:56 07/05/2024 14:05:29 Perennial allergic rhinitis 898231014 J30.89 [id number] ABELARDO SANTOS RN Allergy [address] [place] [address],[place] [address] [place] [address] 07/13/2024 14:31:26 07/13/2024 14:36:58 Perennial allergic rhinitis 330747284 J30.89 [id number] ABELARDO SANTOS RN Allergy [address] [place] [address],[place] [address] [place] [address] 07/20/2024 14:24:55 07/20/2024 14:40:05 Perennial allergic rhinitis 723908660 J30.89 [id number] ABELARDO SANTOS RN Allergy [address] [place] [address],[place] [address] [place] [address] 07/28/2024 14:08:31 07/28/2024 14:17:53 Perennial allergic rhinitis 919541226 J30.89 [id number] ABELARDO SANTOS RN Allergy [address] [place] [address],[place] [address] [place] [address] 08/01/2024 14:42:32 08/01/2024 14:51:06 Perennial allergic rhinitis 274170069 J30.89 [id number] ABELARDO SANTOS RN Allergy [address] [place] [address], [address] [place] [address] 08/11/2024 13:13:26 08/11/2024 13:48:26 Perennial allergic rhinitis 524781431 J30.89 [id number] SHRUTHI THOMPSON [facility] Allergy [address] [place] [address],[place] [address] [place] [address] 08/17/2024 13:18:18 08/17/2024 13:37:29 Perennial allergic rhinitis 806928166 J30.89 [id number] SHRUTHI THOMPSON [facility] Allergy [address] [place] [address], it[address] [place] [address] 08/25/2024 13:06:50 08/25/2024 13:32:44 Perennial allergic rhinitis 713309976 J30.89 [id number] SHRUTHI THOMPSON [facility] Allergy [address] [place] [address], it[address] [place] [address] 09/01/2024 14:02:32 09/01/2024 14:46:10 Perennial allergic rhinitis 782464170 J30.89 [id number] ABELARDO SANTOS RN Allergy [address] [place] [address] it[address] [place] [address] 09/06/2024 13:50:38 09/06/2024 13:56:28 Perennial allergic rhinitis 835102729 J30.89 [id number] RIO STOVER [facility] Allergy [address] [place] [address],[place] [address] [place] [address] 09/13/2024 13:47:00 09/13/2024 14:02:03 Perennial allergic rhinitis 396111153 J30.89 [id number] SHRUTHI THOMPSON [facility] Allergy [address] [place] [address],[place] [address] [place] [address] 09/21/2024 15:06:08 09/21/2024 15:31:01 Perennial allergic rhinitis 044867635 J30.89 [id number] RIO CK, RMA Allergy 100 [facility],[place] [address] [place] [address] 09/27/2024 14:17:08 09/27/2024 14:26:10 Perennial allergic rhinitis 904599919 J30.89 [id number] RIO CK, RMA Allergy [address] [place] [address],[place] [address] [place] [address] 10/03/2024 14:53:14 10/03/2024 15:04:29 Perennial allergic rhinitis 351055880 J30.89 [id number] RIO CK, RMA Allergy [address] [place] [address],[place] [address] [place] [address] 10/19/2024 14:17:04 10/19/2024 14:23:13 Perennial allergic rhinitis 571759891 J30.89 [id number] RIO CK, A Allergy [address] [place] [address], it[address] [place] [address] 10/26/2024 15:01:12 10/26/2024 15:07:43 Perennial allergic rhinitis 935758543 J30.89 [id number] RIO KC, A Allergy [address] [place] [address],[place] [address] [place] [address] 11/03/2024 13:24:25 11/03/2024 13:37:02 Perennial allergic rhinitis 262908081 J30.89 [id number] ABELARDO SANTOS RN Allergy [address] [place] [address], [address] [place] [address] 11/10/2024 13:20:20 11/10/2024 13:37:29 Perennial allergic rhinitis 106994715 J30.89 [id number] ABELARDO SANTOS RN Allergy [address] [place] [address],[place] [address] [place] [address] 11/14/2024 13:26:34 11/14/2024 14:12:17 Perennial allergic rhinitis 560166568 J30.89 [id number] SHRUTHI THOMPSON, A Allergy [address] [place] [address],[place] [address] [place] [address] 11/22/2024 14:35:11 11/22/2024 14:46:12 Perennial allergic rhinitis 437372942 J30.89 [id number] RIO BRITO, RMA Allergy 100 [facility],[place] [address] [place], [place] [address] 11/30/2024 14:51:01 11/30/2024 15:12:16 Perennial allergic rhinitis 174593802 J30.89 [id number] GABRIELA SHIN MD [facility] [address] [facility] [place], [place] [address] 12/06/2024 12:51:12 12/06/2024 13:31:12 Sensorineural hearing loss of bilateral ears 301896139 H90.3 Perennial allergic rhinitis 765026818 J30.89 Feeling of lump in throat 905233730 R09.89 [id number] SHRUTHI THOMPSON A Allergy 100 [facility], [address] [place] [address] 12/06/2024 13:37:15 12/06/2024 14:58:04 Perennial allergic rhinitis 080612145 J30.89 [id number] SHRUTHI THOMPSON A Allergy 100 [facility] [address] [place] [address] 12/14/2024 13:09:31 12/14/2024 14:20:48 Perennial allergic rhinitis 874835764 J30.89 [id number] SHRUTHI THOMPSON A Allergy 100 [facility], [address] [place] [address] 12/19/2024 13:33:44 12/19/2024 13:44:24 Perennial allergic rhinitis 920163452 J30.89 [id number] RIO BRITO RMA Allergy 100 [facility],[place] [address] [place], [place] [address] 12/29/2024 10:08:08 12/29/2024 10:48:59 Perennial allergic rhinitis 939952186 J30.89 [id number] SHRUTHI THOMPSON A Allergy 100 [facility],[place] [address] [place] [address] 01/05/2025 14:19:33 01/05/2025 14:33:10 Perennial allergic rhinitis 029102714 J30.89 [id number] RIO STOVER, RMA Allergy 100 [facility],[address] [place] [address] 01/18/2025 14:24:44 01/18/2025 14:39:46 Perennial allergic rhinitis [id number] J30.89 [id number] SHRUTHI THOMPSON RMA Allergy 100 [facility],[address] [place] [address] 01/26/2025 14:09:54 01/26/2025 14:43:09 Perennial allergic rhinitis [id number] J30.89 [id number] RIO BRITO, RMA Allergy 100 [facility],[address] [place] [address] 02/02/2025 14:10:57 02/02/2025 14:29:05 Perennial allergic rhinitis [id number] J30.89 [id number] Dell Chavarriaos Allergy 100 [facility],[address] [place] [address] 02/16/2025 13:58:16 02/16/2025 14:09:48 Perennial allergic rhinitis [id number] J30.89 [id number] SHRUTHI DONNA A Allergy 100 [facility],[address] [place] [address] 02/21/2025 14:15:12 02/21/2025 14:56:57 Perennial allergic rhinitis [id number] J30.89 [id number] SHRUTHI DONNA A Allergy 100 [facility],[address] [place] [address] 03/15/2025 13:22:24 03/15/2025 14:38:33 Perennial allergic rhinitis [id number] J30.89 Health Concerns Section Related Observation LastModified by Organization Detai ls LastModified Time None Recorded Concern Status LastModified by Organization Details LastModified Time None Recorded Advance Directives Directive None Recorded Payers Insurance Date Sequence Insurance Name Policy Number Policy Jaramillo Covered Member ID Jaramillo Member ID Guarantor Name 05/05/2024 2 BCBS-[place] [facility] [id number] Joceline Estes [id number] Joceline Estes 03/15/2025 1 [place]: [employer] Joceline Romero [place] [id number] Joceline S Franklyn 07/13/2024 2 [facility] (O) Joceline S Franklyn [id number] Ojceline S Franklyn 05/08/2024 2 [facility] [facility] [id number] Joceline Estes [id number] Joceline Estes 03/15/2025 2 [facility] [id number] Joceline Heather Estes [id number] Joceline Estes OBGyn Episode No OBEpisode recorded.
--- OUTSIDE RECORDS SUMMARY | 2025-03-16 14:15 | XMS_ITS | Continuity of Care Document ---
Author Organization [place] - [facility], Allergy Address [address] [place] [address] Care Team Providers Care Type Copyist Name Role Phone SIM ANN Primary Care Provider Assessment Encounter Date Assessment Date Assessment LastModified by Organization Details LastModified Time 01/05/2025 01/05/2025 Visit With: Shruthi Thompson Use of Antihistamine s: No If yes: Vial Test Change in medications: No If yes Increase in asthma symptoms No If yes, inhaler use: Reaction to last injections: No If yes: Allergy Symptoms: Other: Missed: Dose Aware of Vial Test Aware: Notes: [email or web address] Not available 01/05/2025 14:32:54 Plan of Treatment [...] Address Organization Details Recorded Time Chronic rhinitis 36250009 Active 2023 GABRIELA PACHECO MD [address], [address] [place] - [facility] 10:59:27 Impacted cerumen of bilateral ears [id number] 108 Active 2023 GABRIELA PACHECO MD 100 [facility], [place], [address], [facility] - [facility] 4 10:59:44 Non-allergi c rhinitis 109586129582 Active 2023 GABRIELA PACHECO MD 100 [facility], [place], [address], [facility] - [facility] 4 11:00:55 Abnormal auditory perception 49215570 Active 2023 GABRIELA PACHECO MD 100 [facility], [address], [place], [address], [facility] - [facility] 4 11:01:38 Allergic rhinitis 83182236 Active 2023 FRANCESCA PYLE 100 [facility], [address], [place], [address], [facility] - [facility] 4 13:03:02 Sensorineur al hearing loss of bilateral ears 584067840 Active 2023 ADA SPEARS 100 [facility], [address], [place], [address], [facility] - [facility] 4 13:31:38 Feeling of lump in throat 950174672 Active 2023 GABRIELA PACHECO MD 100 [facility], [address], [place], [address], [facility] - [facility] 4 14:05:35 Chronic sinusitis 50077600 Active 2023 GABRIELA PACHECO MD 100 [facility], [place], [address], [facility] - [facility] 4 14:06:50 Perennial allergic rhinitis 911407864 Active 2024 Dell Arriaga 100 [facility], [place], [address], [place] - [facility] 14:32:29 Problem Notes None recorded. Procedures Surgical History Date Name Laterality Status Provider Name and Address Organization Details Recorded Time 03/15/20 25 Allergy Immunotherapy Injections completed FRANCESCA PYLE [address], [place], [address], [place] [facility] 03/15/2025 14:06:54 02/22/20 25 Allergy Immunotherapy Injections completed RIO BRITO, RMA [address], [place], [address], [place] [facility] 02/21/2025 14:56:06 02/17/20 25 Allergy Immunotherapy Injections completed Dell Arriaga [address] [place] [address], [address], [place] [facility] 02/16/2025 14:09:07 02/03/20 25 Allergy Immunotherapy Injections completed RIO BRITO, RMA [address] [place] [address], [address], [place] [facility] 02/02/2025 14:27:51 01/27/20 25 Allergy Immunotherapy Injections completed ABELARDO SANTOS RN [address] [place] [address], [address], [place] [facility] 01/26/2025 14:42:41 01/19/20 25 Allergy Immunotherapy Injections completed RIO BRITO, RMA [address] [place] [address], [address], [place] [facility] 01/18/2025 14:37:57 01/06/20 25 Allergy Immunotherapy Injections completed Dell Arriaga [address], [place], [address], [place] [facility] 01/05/2025 14:32:42 12/30/19 25 Allergy Immunotherapy Injections completed RIO BRITO, RMA [address], [place], [address], [place] [facility] 12/29/2024 10:48:31 12/20/19 25 Allergy Immunotherapy Injections completed ABELARDO SANTOS RN [address], [place], [address], [place] [facility] 12/19/2024 13:44:08 12/15/19 25 Allergy Immunotherapy Injections completed FRANCESCA PYLE 100 [facility],[address], [place], [address], [place] [facility] 12/14/2024 14:20:22 12/07/19 25 Allergy Immunotherapy Injections completed RIO BRITO [place] 100 [facility],[address], [place], [address], [place] [facility] 12/06/2024 14:57:17 12/07/19 25 Fiberoptic Laryngoscopy (Comprehensive) completed GABRIELA LOMBARDO MD 100 [facility],[address], [address], [place] [facility] 12/06/2024 13:31:06 12/01/19 25 Allergy Immunotherapy Injections completed RIO BRITO [facility] 100 [facility],[address], [address], [facility] - [facility] 11/30/2024 15:11:48 11/23/19 25 Allergy Immunotherapy Injections completed Dell Arriaga 100 [facility],[address], [address], [facility] - [facility] 11/22/2024 14:45:33 11/15/19 25 Allergy Immunotherapy Injections completed Dell Bart 100 [facility],[address], [address], [place] [facility] 11/14/2024 14:11:37 11/11/19 25 Allergy Immunotherapy Injections completed Dell Bart 100 [facility],[address], [place], [address], [place] [facility] 11/10/2024 13:36:45 11/04/19 25 Allergy Immunotherapy Injections completed Dell Bart 100 [facility],[address], [place], [address], [place] [facility] 11/03/2024 13:36:32 10/27/19 25 Allergy Immunotherapy Injections completed ABELARDO SANTOS RN [address], [place], [address], [place] [facility] 10/26/2024 15:07:11 10/20/19 25 Allergy Immunotherapy Injections completed RIO CRISZEC, RMA [address], [place], [address], [place] [facility] 10/19/2024 14:22:48 10/04/19 25 Allergy Immunotherapy Injections completed RIO KORZEC, RMA [address], [place], [address], [place] [facility] 10/03/2024 15:03:51 09/28/19 25 Allergy Immunotherapy Injections completed RIO KORZEC, RMA [address], [place], [address], [place] [facility] 09/27/2024 14:25:48 09/22/19 25 Allergy Immunotherapy Injections completed SHRUTHI THOMPSON RMA [address], [place], [address], [place] [facility] 09/21/2024 15:30:42 09/14/19 25 Allergy Immunotherapy Injections completed RIO CKC, RMA [address], [place], [address], [place] [facility] 09/13/2024 14:01:19 09/07/19 25 Allergy Immunotherapy Injections completed ABELARDO SANTOS RN [address], [place], [address], [place] [facility] 09/06/2024 13:56:06 09/02/19 25 Allergy Immunotherapy Injections completed RIO CRISZEC, RMA [address], [place], [address], [place] [facility] 09/01/2024 14:45:17 08/26/19 25 Allergy Immunotherapy Injections completed RIO KORZEC, RMA [address], [place], [address], [place] [facility] 08/25/2024 13:32:12 08/18/19 25 Allergy Immunotherapy Injections completed SHRUTHI THOMPSON RMA [address], [place], [address], [place] [facility] 08/17/2024 13:36:56 08/12/19 25 Allergy Immunotherapy Injections completed ABELARDO SANTOS RN [address], [place], [address], [place] [facility] 08/11/2024 13:47:58 08/02/19 25 Allergy Immunotherapy Injections completed ABELARDO SANTOS RN 100 [facility],[address], [place], [address], [place] [facility] 08/01/2024 14:50:37 07/29/19 25 Allergy Immunotherapy Injections completed ABELARDO SANTOS RN 100 [facility],[address] [place] [address], [address], [place] [facility] 07/28/2024 14:17:25 07/21/19 25 Allergy Immunotherapy Injections completed FRANCESCA PYLE 100 [facility],[address] [place] [address], [address], [place] [facility] 07/20/2024 14:39:33 07/14/19 25 Allergy Immunotherapy Injections completed ABELARDO SANTOS RN 100 [facility],[address] [place] [address], [address], [place] [facility] 07/13/2024 14:36:25 07/06/19 25 Allergy Immunotherapy Injections completed ABELARDO SANTOS RN 100 [facility],[address] [place] [address], [address], [place] [facility] 07/05/2024 14:04:57 06/30/19 25 Allergy Immunotherapy Injections completed RIO BRITO, RMA [address] [facility] [address], [place], [address], [place] [facility] 06/29/2024 14:43:49 06/16/19 25 Allergy Immunotherapy Injections completed RIO BRITO, RMA [address] [facility], [place], [address], [place] [facility] 06/15/2024 14:25:11 06/10/19 25 Allergy Immunotherapy Injections completed RIO BRITO, RMA [address] [place] [address], [address], [place] [facility] 06/09/2024 14:22:07 05/31/19 25 Allergy Immunotherapy Injections completed RIO LYNCHTONIO, A 100 [facility],[address], [address], [place] [facility] 05/30/2024 15:43:04 05/25/19 25 Allergy Immunotherapy Injections completed SHRUTHI THOMPSON [facility] 100 [facility],[address], [address], [place] [facility] 05/25/2024 14:21:31 05/11/19 25 Allergy Immunotherapy Injections completed RIO BRITO [facility] 100 [facility],[address], [address], [place] [facility] 05/11/2024 15:28:00 05/05/19 25 Allergy Immunotherapy Injections completed SHRUTHI THOMPSON [facility] 100 [facility],[address], [address], [facility] - [facility] 05/05/2024 14:11:35 04/28/19 25 Allergy Immunotherapy Injections completed THA PYLE 100 [facility],[address], [address], [facility] - [facility] 04/28/2024 13:25:07 04/17/19 25 Allergy Immunotherapy Injections completed ABELARDO SANTOS RN 100 [facility],[address], [address], [facility] - [facility] 04/17/2024 15:10:42 03/15/20 24 Comp Audio with Tymps - 86494 & 80070 completed ADA SPEARS 100 [facility],[address], [address], [place] [facility] 03/15/2024 13:31:32 03/15/20 24 Fiberoptic Laryngoscopy (Comprehensive) completed GABRIELA LOMBARDO MD 100 [facility],[address], [address], [place] [facility] 03/15/2024 14:04:46 12/13/19 24 Allergy Testing-Full completed FRANCESCA PYLE 100 [facility],[place] [address], [place], [address], [facility] 12/13/2023 14:11:35 tonsillectomy completed GABRIELA LOMBARDO MD 100 [facility],[place] [address], [place], [address], [facility] - [facility] 11/26/2023 10:54:51 facial rhytidoplasty completed GABRIELA LOMBARDO MD 100 [facility],[place] [address], [place], [address], [facility] 11/26/2023 10:58:58 Imaging Results None recorded. Procedure Notes None recorded. Medical Equipment None Reported. Allergies Allergen ID Allergen Name Allergen Category Reaction Reaction Severity Criticality Documentation Date Start Date Code Code System Note Provider Name and Address Organization Details Recorded Time 711406 Bactrim medicatio n other mild Not available 12/13/2023 14586 9 RxNorm FRANCESCA PYLE 100 [facility], [place], [address], [facility] 4 13:07:20 982507 Product containin g penicilli n (product) medicatio n Not available Not available Not available 02/16/2025 94980 8001 SNOMED Not Available [employer] - prod 13:58:50 134336 sulfameth oxazole / trimethop rim medicatio n Not available Not available Not available 02/16/2025 40133 RxNorm Not Available [employer] External [employer] - prod 13:58:50 Medications [...] azelastine 137 mcg (0.1 %) nasal spray Fordyce 2 sprays twice a day by intranasa [...] ICD10 Code Diagnosis IMO Codes Diagnosis Note [id number] GABRIELA SHIN MD [facility] [address] [address] 12/06/2024 12:51:12 12/06/2024 13:31:12 Sensorineural hearing loss of bilateral ears 709320965 H90.3 Perennial allergic rhinitis 341531280 J30.89 Feeling of lump in throat 476108190 R09.89 [id number] FRANCESCA PYLE Allergy [address] [place] [address] [address] 12/06/2024 13:37:15 12/06/2024 14:58:04 Perennial allergic rhinitis 388658680 J30.89 [id number] SHRUTHI THOMPSON A Allergy 100 [facility],[address] [place] [address] 12/14/2024 13:09:31 12/14/2024 14:20:48 Perennial allergic rhinitis 021635068 J30.89 [id number] SHRUTHI THOMPSON A Allergy 100 [facility],[address] [place] [address] 12/19/2024 13:33:44 12/19/2024 13:44:24 Perennial allergic rhinitis 285840747 J30.89 15365 RIO STOVER A Allergy 100 [facility],[address] [place] [address] 12/29/2024 10:08:08 12/29/2024 10:48:59 Perennial allergic rhinitis 176710786 J30.89 39187 SHRUTHI THOMPSON A Allergy 100 [facility],[address] [place] [address] 01/05/2025 14:19:33 01/05/2025 14:33:10 Perennial allergic rhinitis 521747668 J30.89 Health Concerns Section Related Observation LastModified by Organization Detai ls LastModified Time None Recorded Concern Status LastModified by Organization Details LastModified Time None Recorded Payers Encounter Date Sequence Insurance Name Policy Number Policy Jaramillo Covered Member ID Jaramillo Member ID Guarantor Name 01/05/2025 1 MEDICARE B-[place]: [facility] [employer] Joceline Estes [id number] Joceline Estes 01/05/2025 2 [facility] [id number] Joceline Estes [id number] Joceline Estes OBGyn Episode No OBEpisode recorded.
--- OUTSIDE RECORDS SUMMARY | 2025-03-16 14:15 | XMS_ITS | Continuity of Care Document ---
Author Organization [place] - [facility], Allergy Address [address] [place] [id number] Care Team Providers Care Cancer Program Coordinator Name Role Phone SIM ANN Primary Care Provider [phone] Assessment Encounter Date Assessment Date Assessment LastModified [...] Not available Not available Not available Lisa [facility]- Allergy f-up 6mon 2025 02:00P M SATISH [...] Address Organization Details Recorded Time Chronic rhinitis 42791702 Active 2023 GABRIELA PACHECO MD [address], [address] [facility] [place] [facility] 4 10:59:27 Impacted cerumen of bilateral ears [id number] 108 Active 2023 GABRIELA PACHECO MD 100 [facility], [place], [address], [facility] - [facility] 4 10:59:44 Non-allergi c rhinitis [id number] Active 2023 GABRIELA PACHECO MD 100 [facility], [place], [address], [facility] - [facility] 4 11:00:55 Abnormal auditory perception 73178044 Active 2023 GABRIELA PACHECO MD 100 [facility],[address], [place], [address], [facility] - [facility] 4 11:01:38 Allergic rhinitis 55344987 Active 2023 FRANCESCA PYLE 100 [facility], [address], [place], [address], [facility] - [facility] 4 13:03:02 Sensorineur al hearing loss of bilateral ears 759146734 Active 2023 ADA SPEARS 100 [facility], [place], [address], [facility] - [facility] 4 13:31:38 Feeling of lump in throat 843526161 Active 2023 GABRIELA PACHECO MD 100 [facility], [address], [place], [address], [facility] - [facility] 4 14:05:35 Chronic sinusitis 36462693 Active 2023 GABRIELA PACHECO MD 100 [facility], [place], [address], [facility] - [facility] 4 14:06:50 Perennial allergic rhinitis 440438558 Active 2024 Dell Arriaga [address] [facility],[address], [place], [address], [place] - [facility] 14:32:29 Problem Notes None recorded. Procedures Surgical History Date Name Laterality Status Provider Name and Address Organization Details Recorded Time 03/15/20 25 Allergy Immunotherapy Injections completed FRANCESCA PYLE [address], [place], [address], [place] [facility] 03/15/2025 14:06:54 02/22/20 25 Allergy Immunotherapy Injections completed RIO BRITO, RMA [address], [place], [address], [place] [facility] 02/21/2025 14:56:06 02/17/20 25 Allergy Immunotherapy Injections completed Dell Arriaga [address], [place], [address], [place] [facility] 02/16/2025 14:09:07 02/03/20 25 Allergy Immunotherapy Injections completed RIO BRITO, RMA [address] [facility] [address] [place] [address], [address], [place] [facility] 02/02/2025 14:27:51 01/27/20 25 Allergy Immunotherapy Injections completed ABELARDO SANTOS RN [address] [facility] [address] [place] [address], [address], [place] [facility] 01/26/2025 14:42:41 01/19/20 25 Allergy Immunotherapy Injections completed RIO BRITO, RMA [address] [place] [address], [address], [place] [facility] 01/18/2025 14:37:57 01/06/20 25 Allergy Immunotherapy Injections completed Dell Arriaga [address], [place], [address], [place] [facility] 01/05/2025 14:32:42 12/30/19 25 Allergy Immunotherapy Injections completed RIO BRITO, RMA [address], [place], [address], [place] [facility] 12/29/2024 10:48:31 12/20/19 25 Allergy Immunotherapy Injections completed ABELARDO SANTOS RN 100 [facility],[address], [place], [address], [facility] - [facility] 12/19/2024 13:44:08 12/15/19 25 Allergy Immunotherapy Injections completed SHRUTHI WAHL [facility] 100 [facility],[address] [place] [address], [address], [facility] - [facility] 12/14/2024 14:20:22 12/07/19 25 Allergy Immunotherapy Injections completed RIO BRITO [facility] 100 [facility],[address], [place], [address], [facility] - [facility] 12/06/2024 14:57:17 12/07/19 25 Fiberoptic Laryngoscopy (Comprehensive) completed GABRIELA LOMBARDO MD 100 [facility],[address], [address], [facility] - [facility] 12/06/2024 13:31:06 12/01/19 25 Allergy Immunotherapy Injections completed RIO BRITO [facility] 100 [facility],[address], [address], [facility] - [facility] 11/30/2024 15:11:48 11/23/19 25 Allergy Immunotherapy Injections completed Dell Bart 100 [facility],[address], [address], [facility] - [facility] 11/22/2024 14:45:33 11/15/19 25 Allergy Immunotherapy Injections completed [facility] Bart 100 [facility],[address], [address], [facility] - [facility] 11/14/2024 14:11:37 11/11/19 25 Allergy Immunotherapy Injections completed Dell Bart 100 [facility],[address] [place] [address], [address], [facility] - [facility] 11/10/2024 13:36:45 11/04/19 25 Allergy Immunotherapy Injections completed Dell Bart 100 [facility],[address], [address], [facility] - [facility] 11/03/2024 13:36:32 10/27/19 25 Allergy Immunotherapy Injections completed ABELARDO SANTOS RN [address] [facility] [address], [place], [address], [place] [facility] 10/26/2024 15:07:11 10/20/19 25 Allergy Immunotherapy Injections completed RIO CRISZEC, RMA [address], [place], [address], [place] [facility] 10/19/2024 14:22:48 10/04/19 25 Allergy Immunotherapy Injections completed RIO KORZEC, RMA [address], [place], [address], [place] [facility] 10/03/2024 15:03:51 09/28/19 25 Allergy Immunotherapy Injections completed RIO KORZEC, RMA [address] [facility] [address], [place], [address], [place] [facility] 09/27/2024 14:25:48 09/22/19 25 Allergy Immunotherapy Injections completed SHRUTHI WAHL RMA [address] [facility] [address] [place] [address], [address], [place] [facility] 09/21/2024 15:30:42 09/14/19 25 Allergy Immunotherapy Injections completed RIO CKC, RMA [address] [facility] [address] [place] [address], [address], [place] [facility] 09/13/2024 14:01:19 09/07/19 25 Allergy Immunotherapy Injections completed ABELARDO SANTOS RN [address] [facility] [address] [place] [address], [address], [place] [facility] 09/06/2024 13:56:06 09/02/19 25 Allergy Immunotherapy Injections completed RIO CRISZEC, RMA [address] [facility] [address], [place], [address], [place] [facility] 09/01/2024 14:45:17 08/26/19 25 Allergy Immunotherapy Injections completed RIO KORZEC, RMA [address], [place], [address], [place] [facility] 08/25/2024 13:32:12 08/18/19 25 Allergy Immunotherapy Injections completed SHRUTHI WAHL RMA [address], [place], [address], [place] [facility] 08/17/2024 13:36:56 08/12/19 25 Allergy Immunotherapy Injections completed ABELARDO SANTOS RN [address] [facility] [address], [place], [address], [place] [facility] 08/11/2024 13:47:58 08/02/19 25 Allergy Immunotherapy Injections completed ABELARDO SANTOS RN 100 [facility],[address], [place], [address], [place] [facility] 08/01/2024 14:50:37 07/29/19 25 Allergy Immunotherapy Injections completed ABELARDO SANTOS RN 100 [facility],[address] [place] [address], [address], [place] [facility] 07/28/2024 14:17:25 07/21/19 25 Allergy Immunotherapy Injections completed FRANCESCA PYLE 100 [facility],[address] [place] [address], [address], [place] [facility] 07/20/2024 14:39:33 07/14/19 25 Allergy Immunotherapy Injections completed ABELARDO SANTOS RN 100 [facility],[address] [place] [address], [address], [place] [facility] 07/13/2024 14:36:25 07/06/19 25 Allergy Immunotherapy Injections completed ABELARDO SANTOS RN 100 [facility],[address] [place] [address], [address], [place] [facility] 07/05/2024 14:04:57 06/30/19 25 Allergy Immunotherapy Injections completed RIO BRITO [facility] [address] [place] [address], [address], [place] [facility] 06/29/2024 14:43:49 06/16/19 25 Allergy Immunotherapy Injections completed RIO BRITO RMA [address] [facility] [address], [place], [address], [place] [facility] 06/15/2024 14:25:11 06/10/19 25 Allergy Immunotherapy Injections completed RIO BRITO RMA 100 [facility],[address], [address], [place] [facility] 06/09/2024 14:22:07 05/31/19 25 Allergy Immunotherapy Injections completed RIO BRITO [facility] 100 [facility],[address], [address], [place] [facility] 05/30/2024 15:43:04 05/25/19 25 Allergy Immunotherapy Injections completed THA PYLE 100 [facility],[address], [address], [place] [facility] 05/25/2024 14:21:31 05/11/19 25 Allergy Immunotherapy Injections completed RIO BRITO [facility] 100 [facility],[address], [address], [place] [facility] 05/11/2024 15:28:00 05/05/19 25 Allergy Immunotherapy Injections completed THA PYLE 100 [facility],[address], [address], [place] [facility] 05/05/2024 14:11:35 04/28/19 25 Allergy Immunotherapy Injections completed FRANCESCA PYLE [address] [place] [address],[address], [address], [place] [facility] 04/28/2024 13:25:07 04/17/19 25 Allergy Immunotherapy Injections completed ABELARDO SANTOS RN 100 [facility],[address], [address], [facility] - [facility] 04/17/2024 15:10:42 03/15/20 24 Comp Audio with Tymps - 66785 & 70477 completed ADA SPEARS 100 [facility],[address], [address], [place] [facility] 03/15/2024 13:31:32 03/15/20 24 Fiberoptic Laryngoscopy (Comprehensive) completed GABRIELA LOMBARDO MD 100 [facility],[address], [address], [place] [facility] 03/15/2024 14:04:46 12/13/19 24 Allergy Testing-Full completed FRANCESCA PYLE 100 [facility],[place] [address], [place], [address], [facility] 12/13/2023 14:11:35 tonsillectomy completed GABRIELA LOMBARDO MD 100 [facility],[place] [address], [place], [address], [facility] 11/26/2023 10:54:51 facial rhytidoplasty completed GABRIELA LOMBARDO MD 100 [facility] 100, [place], [address], [facility] 11/26/2023 10:58:58 Imaging Results None recorded. Procedure Notes None recorded. Medical Equipment None Reported. Allergies Allergen ID Allergen Name Allergen Category Reaction Reaction Severity Criticality Documentation Date Start Date Code Code System Note Provider Name and Address Organization Details Recorded Time 172215 Bactrim medicatio n other mild Not available 12/13/2023 04648 9 RxNorm FRANCESCA PYLE 100 [facility], [place], [address], [facility] 4 13:07:20 564220 Product containin g penicilli n (product) medicatio n Not available Not available Not available 02/16/2025 37835 8001 SNOMED Not Available [employer] - prod 13:58:50 403208 sulfameth oxazole / trimethop rim medicatio n Not available Not available Not available 02/16/2025 92665 RxNorm Not Available [employer] - prod 13:58:50 Medications [...] azelastine 137 mcg (0.1 %) nasal spray Delevan 2 sprays twice a day by intranasa [...] ICD10 Code Diagnosis IMO Codes Diagnosis Note [id number] RIO CRISTONIO RMA Allergy 100 [facility] [place] [address] 12/29/2024 10:08:08 12/29/2024 10:48:59 Perennial allergic rhinitis 199669505 J30.89 30950 SHRUTHI WAHL A Allergy 100 [facility], [address] [place] [address] 01/05/2025 14:19:33 01/05/2025 14:33:10 Perennial allergic rhinitis 093461063 J30.89 00110 RIO CRISTONIO RMA Allergy 100 [facility] [address] [place] [address] 01/18/2025 14:24:44 01/18/2025 14:39:46 Perennial allergic rhinitis 651799883 J30.89 02617 SHRUTHI WAHL [facility] [address] [place] [address] [address] [place] [address] 01/26/2025 14:09:54 01/26/2025 14:43:09 Perennial allergic rhinitis 200885816 J30.89 Health Concerns Section Related Observation LastModified by Organization Detai ls LastModified Time None Recorded Concern Status LastModified by Organization Details LastModified Time None Recorded Payers Encounter Date Sequence Insurance Name Policy Number Policy Jaramillo Covered Member ID Jaramillo Member ID Guarantor Name 01/26/2025 1 MEDICARE B-NE: [facility] Joceline Estes [id number] Joceline Estes 01/26/2025 2 [facility] [id number] Joceline Estes [id number] Joceline Estes OBGyn Episode No OBEpisode recorded.
== END 2025-03-16 11:45 | disposition home or self-care (01) ==
LOC: HO.HPHYSR 11:44
PROVIDERS: PCP Internal Medicine; Visit Provider Physical Medicine & Rehabilitation
DX: M47.816 Spondylosis without myelopathy or radiculopathy, lumbar region (principal)
CPT/HCPCS: 64493; 64494; J2003; J3301; Q9967

== ENCOUNTER 2025-03-16 11:44 | Outpatient (AMB) | payer MEDICARE, SELFPAY ==
[2025-03-16 11:57] VITALS: BP 109/59; RESP 82; TEMP 36.8; BMI 23.8
--- NOTE | 2025-03-16 11:57 | A.PHYSOV ---
Vital Signs 03/16/25 11:57 Height 5 ft 2 in Weight 130 lb BMI 23.8 BP 109/59 L Respiration 82 H Temp 98.2 F Intake Visit Reasons: Bilateral Lumbar Facet Injection L4-5 L5-S1 Intake Note: Patient is a 70 year old female in office today for a Bilateral Lumbar Facet Injection L4-5 L5-S1. [employer] Required: No Allergies Penicillins Allergy (Unknown, Verified 03/16/25 11:56) Unknown sulfamethoxazole Allergy (Unknown, Verified 03/16/25 11:56) Unknown [facility] Medical History (Updated 03/16/25 @ 12:12 by Lanre Matute DO) Spondylosis of lumbar region without myelopathy or radiculopathy Surgical History (Updated 03/12/25 @ 12:46 by Kimberly Castillo MA) History of blepharoplasty Social History (Updated 03/16/25 @ 11:58 by Kimberly Castillo MA) Household Members: Significant Other Alcohol intake: current Alcohol intake frequency: does not drink Patient Tobacco Use Status: Never used Tobacco Use of substances other than those prescribed or required for medical reasons: No Physical Exam Vital Signs: Last Vital Signs Temp 98.2 F 03/16/25 11:57 Resp 82 H 03/16/25 11:57 BP 109/59 L 03/16/25 11:57 BMI result Body Mass Index 23.8 Office Procedures Procedure Details: Procedure performed: Bilateral L4-L5, L5-S1 facet joint injections Preop diagnosis: Lumbar facet arthropathy Postop diagnosis: The same Anesthesia: Local After informed consent was obtained, patient was brought into the procedure room and placed in the prone position on the procedure table. Skin over the lumbar sacral area was prepped and draped in the usual sterile manner. The facet joints indicated above were visualized utilizing fluoroscopy. For each joint 3.5 inch 22 gauge spinal needle was introduced percutaneously and advanced to enter the joint space. Needle placement was verified utilizing 0.2 cc of Omnipaque contrast solution. Each joint received total 1.5 cc of therapeutic solution containing 20 mg of of triamcinolone and 2% lidocaine. Radiation exposure was recorded and documented in chart. 19617 Lumbar Facet Inj SINGLE Level- use with FL Gd order: 75745 - Bilateral 93158 Lumbar Facet Inj SECOND Level- use with FL Gd order: 40576 - Bilateral Procedure code (CPT) selection complete Office Meds Kenalog 40 mg/mL suspension for injection Performing Provider: Lanre Matute DO Performing Location: [facility] Administered by: Lanre Matute DO on 03/16/25 12:13 Dose Route Admin Location Dispensed Lot Number Expiration Date [facility] [employer] 80 mg intra-articular 2 mL [address]-4 [employer] Total Dispensed Waste 2 mL 0 % lidocaine (PF) 20 mg/mL (2 %) injection solution Performing Provider: Lanre Matute DO Performing Location: [facility] Administered by: Lanre Matute DO on 03/16/25 12:13 Dose Route Admin Location Dispensed Lot Number Expiration Date [facility] [employer] 40 mg intra-articular 5 mL 54976-842-61 [facility] PH[facility] Total Dispensed Waste 5 mL 60 % Omnipaque 300 300 mg iodine/mL intravenous solution Performing Provider: Lanre Matute DO Performing Location: [facility] Administered by: Lanre Matute DO on 03/16/25 12:13 Dose Route Admin Location Dispensed Lot Number Expiration Date [facility] Meat [employer] 3 mL intra-articular 10 mL 3362-6578-13 [employer] Total Dispensed Waste 10 mL 70 % Assessment & Plan Assessment & Plan (1) Spondylosis of lumbar region without myelopathy or radiculopathy: Code(s): M47.816 - Spondylosis without myelopathy or radiculopathy, lumbar region Category: Medical Plan Procedure Orders: Orders FL Gd Lumbar Spine Facet Inj Today M47.816 - Spondylosis without myelopathy or radiculopathy, lumbar region AMB Lumbar Facet Injection Today M47.816 - Spondylosis without myelopathy or radiculopathy, lumbar region Coding Level of Care Code Procedure Only Diagnoses Spondylosis of lumbar region without myelopathy or radiculopathy M47.816 CPT Codes Lumbar Facet Injection - 96340 Thoracic Facet Inj CPT: 12028 - Bilateral ([id number]) Lumbar Facet Injection - 13961 Thoracic Facet Inj CPT: 10645 - Bilateral ([id number])
--- OUTSIDE RECORDS SUMMARY | 2025-03-16 13:50 | XMS_ITS | Patient Health Record ---
Author Organization [facility] [place] re Address [phone] [facility] [address] [place] [address] Support Name Relationship Address Phone Joceline Estes Guarantor Unknown Reason For Referral No Information Medications Medication SIG (Take, Route, Fr equency, Duration) Notes Start Date End Date Status Synthroid 50 MCG Tablet Oral 02/11/2023 Active Plan Of Treatment No Information Insurance Providers Payer Name Payer Address Payer Phone Subscriber Number Group Number Insured Name Patient Relationship to Insured Coverage Start Date Coverage End Date [employer] [address] [phone] [id number] Joceline Estes Self - patient is the insured Medicare ONLY [address] [facility] [place] [phone] [id number] Joceline Estes Self - patient is the insured
--- OUTSIDE RECORDS SUMMARY | 2025-03-16 13:50 | XMS_ITS | Clinical Summary ---
Author Organization [facility] [address] [facility] Address [address] [place] [address] Phone Care Team Providers Care Child Care Sitter Name Role Phone Shemar Loera MD Primary Care Provider [phone] Allergies Active Allergy Reactions Criticality Noted Date Comments Penicillins Hives 07/19/2017 Sulfamethoxazole-Trimethoprim Dizziness 2017 Bactrim Medications fluticasone propionate (FLONASE) 50 mcg/actuation nasal spray Administer 2 sprays into each nostril 1 (one) time each day. Shake liquid Active FLUoxetine (PROzac) 40 mg capsule TAKE 1 CAPSULE BY MOUTH TWICE DAILY 180 capsule 2 5 Active Additional Information Patient taking differently:40 mg oralDaily, Reported on 09/18/2024 eletriptan (RELPAX) 40 mg tablet Take 1 tablet (40 mg total) by mouth 1 (one) time if needed for headaches. 6 tablet 3 5 Active LevoxyL 75 mcg tabletIndication s:Hypothyroidism , unspecified type Take 1 tablet (75 mcg total) by mouth 1 (one) time each day. 90 tablet 3 5 Active simvastatin (ZOCOR) 40 mg tablet TAKE 1 TABLET BY MOUTH EVERY DAY 90 tablet 1 5 Active Active Problems Problem Noted Date Diagnosed Date [...] on file Sexual Orientation Not on file Last Filed Vital Signs Vital Sign Reading [...] mg/dL LAB CHEMISTRY METHOD 07/14/2024 3:45 PM [facility] Triglycerides 144 0 - 150 mg/dL LAB CHEMISTRY METHOD 07/14/2024 3:45 PM [facility] HDL 71 >=40 mg/dL LAB CHEMISTRY METHOD 07/14/2024 3:45 PM [facility] LDL Calculated 120(H) 0 - 100 mg/dL LAB CHEMISTRY METHOD 07/14/2024 3:45 PM [facility] VLDL Cholesterol Stanton 28.8 mg/dL LAB CHEMISTRY METHOD 07/14/2024 3:45 PM [facility] Non HDL Chol. (LDL+VLDL) 149(H) <145 mg/dL LAB CHEMISTRY METHOD 07/14/2024 3:45 PM [facility] Chol/HDL Ratio 3.1 0.0 - 4.4 LAB CHEMISTRY METHOD 07/14/2024 3:45 PM [facility] Blood Venous blood specimen / Unknown Venipuncture / Unknown 07/14/2024 12:29 PM EDT 07/14/2024 1:47 PM EDT us Shemar Loera MD LAB BLOOD ORDERABLES Final Resul t [facility] [address] [place] [address], [place] [phone] * [facility] DEXA AXIAL SKELETON (06/21/2023 11:19 AM EDT) Anatomical Region Laterality Modality Mammography 06/21/2023 10:5 3 AM EDT Narrative 06/21/2023 11:19 AM EDT [facility] Diagnostic Imaging Department [address] [place] [address] Patient: JOCELINE DENT /Age/Sex: 1955 68 - F Unit#: [id number] [facility] Ordering Physician: SHEMAR LOERA MD [facility] Dexa Axial Skeleton - 06/21/23 - 3630 Report Status:Signed HISTORY: The patient is a [...] probability of hip fracture of 2.1%. Code 88123 Dictating Physician: TONI MOE MD Electronically Signed by: TONI MOE MD Dic Date/Time: 06/21/23 1118 Sign date/Time: 06/21/23 1119 Procedure Note Toni Moe MD - 11/15/2023 [facility] Diagnostic Imaging Department [address] [place] [address] Patient: JOCELINE DENT/Age/Sex: 1955 - 68 - F Unit#: [id number] Location/Status: SPDIMA/REG CLI Mnemonic[facility] Ordering Physician: SHEMAR LOERA MD [place] [...] density of the femurs bilaterally is 0.920 gm/gk3uewom is 91% of that of young normals [...] probability of hip fracture of 2.1%. Code 12203 Dictating Physician: TONI MOE MD Electronically Signed by: TONI OME MD Dic Date/Time: 06/21/23 1118 Sign date/Time: 06/21/23 111 Shemar Loera MD IM BI PROCEDURES Final Result from Last 3 Months or Most Recently Relevant to Health Maintenance [place] [id number] MEDICARE [facility] (COUNTS INCLUDE 234 BEDS AT [facility]) Care Teams Child Care Sitter Relationship Specialty Start Date End Date Shemar Loera MD 175 [facility] [address] [place] [address] PCP - General Internal Medicine 02/21/18
== END 2025-03-16 12:49 | disposition home or self-care (01) ==
LOC: HO.HPHYS 11:44
PROVIDERS: PCP Internal Medicine; Visit Provider Physical Medicine & Rehabilitation
DX: M47.816 Spondylosis without myelopathy or radiculopathy, lumbar region (principal)
CPT/HCPCS: 64493; 64494